=== PATIENT | male | born 1945 ===

== ENCOUNTER 2016-08-26 08:29 | Inpatient (IN) | payer MEDICARE, OTHER ==
[2016-08-26 08:29] VITALS: BMI 21.1
[2016-08-26 09:45] LABS: RBC URINE 75 /hpf (0-3); URINE BACTERIA FEW (<OCC); URINE BILIRUBIN NEGATIVE (NEGATIVE); URINE BLOOD 1+ (NEGATIVE); URINE COLOR Yellow (YELLOW); URINE GLUCOSE (UA) NORMAL (Normal); URINE KETONE NEGATIVE (NEGATIVE); URINE LEUKOCYTE ESTERASE 3+ Leu/uL (Negative); URINE PROTEIN 2+ mg/dL (NEGATIVE); URINE UROBILINOGEN NORMAL mg/dL (0.2-1.0); WBC CLUMPS RARE /hpf; WBC URINE 1280 /hpf (0-5)
--- NOTE | 2016-08-26 09:57 | C.PDOC ---
History Of Present Illness 71 y/o male presents to the ED with complains of difficulty urinating, onset 3 days ago. Pt reports he initially was putting our small amounts of urine. Yesterday afternoon, patient became unable to to urinate and has had worsening suprapubic pain since then. He denies fever, nausea, vomiting, diarrhea. PMHx of "prostate problems" as per patient, currently on Flomax given by PMD. He denies having urologist. Time Seen by Provider: 08/26/16 09:19 Chief Complaint (Nursing): Male Genitourinary History Per: Patient History/Exam Limitations: no limitations Onset/Duration Of Symptoms: Days Current Symptoms Are (Timing): Worse Severity: Moderate Quality Of Discomfort: "Pain" Associated Symptoms: denies: Fever, Nausea, Vomiting, Diarrhea Alleviating Factors: None Past Medical History Reviewed: Historical Data, Nursing Documentation, Vital Signs Vital Signs: Last Vital Signs Temp 97.9 F 08/28/16 08:52 Pulse 102 H 08/28/16 08:52 Resp 20 08/28/16 08:52 BP 122/70 08/28/16 08:52 Pulse Ox 97 08/28/16 08:52 - Medical History PMH: Rheumatoid Arthritis Family History: States: No Known Family Hx - Social History Hx Alcohol Use: No Hx Substance Use: No - Immunization History Hx Tetanus Toxoid Vaccination: No Hx Influenza Vaccination: Yes Hx Pneumococcal Vaccination: No Review Of Systems Except As Marked, All Systems Reviewed And Found Negative. Constitutional: Negative for: Fever, Chills Respiratory: Negative for: Cough, Shortness of Breath Gastrointestinal: Positive for: Abdominal Pain (suprapubic). Negative for: Nausea, Vomiting, Diarrhea Genitourinary: Positive for: Other (difficulty urinating) Physical Exam - Physical Exam Appears: Well, Non-toxic, In Acute Distress (uncomfortable) Skin: Warm, Dry, No Rash Head: Normacephalic Oral Mucosa: Moist Cardiovascular: Rhythm Regular Respiratory: Normal Breath Sounds, No Rales, No Rhonchi, No Wheezing Gastrointestinal/Abdominal: Bowel Sounds, Soft, Tenderness (suprapubic TTP), No Distention, No Guarding, No Rebound Extremity: Bilateral: Atraumatic Neurological/Psych: Oriented x3 ED Course And Treatment - Laboratory Results Result Diagrams: 08/28/16 05:54 08/28/16 05:54 O2 Sat by Pulse Oximetry: 98 (on room air) Pulse Ox Interpretation: Normal Progress Note: Plan: UA ordered and reviewed. Patient developed hematuria after shields insertion, three way shields inserted by nurse and CBI started. Blood work and CT scan of pelvis ordered. 16:30- Spoke with Dr. Olivas, he agrees with admission for persisent hematuria, irregular & thickened bladder with Dr. Velasco for urology. 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 Sanz, he recommends continued irrigation, IV rocephin. If no clearing of hematuria, then he will see patient on consult. Disposition Counseled Patient/Family Regarding: Studies Performed, Diagnosis, Need For Followup, Rx Given - Disposition Disposition: HOSPITALIZED Disposition Time: 16:35 Condition: STABLE - POA Present On Arrival: None - Clinical Impression Clinical Impression: UTI (urinary tract infection), Acute retention of urine - Scribe Statement The provider has reviewed the documentation as recorded by the Patty Montes Provider Attestation: All medical record entries made by the Patty were at my direction and personally dictated by me. I have reviewed the chart and agree that the record accurately reflects my personal performance of the history, physical exam, medical decision making, and the department course for this patient. I have also personally directed, reviewed, and agree with the discharge instructions and disposition. Decision To Admit - Pt Status Changed To: Hospital Disposition Of: Inpatient - Admit Certification Admit to Inpatient:: After my assessment, the patient will require hospitalization for at least two midnights. This is because of the severity of symptoms shown, intensity of services needed, and/or the medical risk in this patient being treated as an outpatient. - InPatient: Physician Admission Certification: I certify that this patient requires 2 or more midnights of care for the following reason:: see notes - . Bed Request Type: Regular Admitting Physician: Yasmeen Olivas Patient Diagnosis: UTI (urinary tract infection), Acute retention of urine
[2016-08-26 11:12] LABS: BASO # 0.1 K/uL (0.0-0.2); BASO % 0.5 % (0.0-2.0); EOS # 0.1 K/uL (0.0-0.7); EOS % 1.2 % (0.0-4.0); HEMATOCRIT 37.4 % (35.0-51.0); LYMPH # 1.9 K/uL (1.0-4.3); LYMPH % 19.2 % (20.0-40.0); MEAN CELL VOLUME 79.9 fL (80.0-94.0); MEAN CORPUSCULAR HEMOGLOBIN 25.4 pg (27.0-31.0); MEAN CORPUSCULAR HGB CONC 31.8 g/dL (33.0-37.0); MEAN PLATELET VOLUME 8.2 fL (7.2-11.7); MONO # 1.1 K/uL (0.0-0.8); MONO % 10.9 % (0.0-10.0); NRBC % 0.1 % (0.0-2.0); RED CELL DISTRIBUTION WIDTH 16.2 % (11.5-14.5); WHITE BLOOD COUNT 10.1 K/uL (4.8-10.8)
[2016-08-26 11:18] LABS: INR 1.1
[2016-08-26 11:25] LABS: CHLORIDE 88 mmol/L (98-107)
[2016-08-26 11:26] LABS: POTASSIUM 4.1 mmol/L (3.6-5.2); SODIUM 128 mmol/L (132-148)
[2016-08-26 11:28] LABS: ALB/GLOB RATIO 1.4 (1.0-2.1); ALKALINE PHOSPHATASE 45 U/L (38-126); ALT/SGPT 21 U/L (21-72); AST/SGOT 26 U/L (17-59); BILIRUBIN,TOTAL 0.7 mg/dL (0.2-1.3); BLOOD UREA NITROGEN 11 mg/dL (9-20); CARBON DIOXIDE 28 mmol/L (22-30); GFR AFRICAN-AMERICAN > 60; TOTAL PROTEIN 7.1 g/dL (6.3-8.3)
[2016-08-26 11:29] LABS: CALCIUM 9.1 mg/dl (8.6-10.4); GLUCOSE,RANDOM 133 mg/dL (75-110)
[2016-08-26] MEDS ORDERED: Iodixanol 320 MG/ML 100 ML BOTTLE IV ONE (15:08)
--- NOTE | 2016-08-26 15:32 | CT ---
PROCEDURE: CT Abdomen and Pelvis with and without intravenous contrast HISTORY: SUPRAPUBIC PAIN, HEMATURIA, R/O MASS COMPARISON: None available. TECHNIQUE: Axial images of the abdomen were obtained in the pre contrast, portal venous and delayed phases of enhancement. Coronal and sagittal reformats were generated and reviewed. Contrast dose: 100 mL Visipaque Radiation dose: Total exam DLP = 1167.51 mGy-cm. This CT exam was performed using one or more of the following dose reduction techniques: Automated exposure control, adjustment of the mA and/or kV according to patient size, and/or use of iterative reconstruction technique. FINDINGS: LOWER THORAX: Subtle bibasilar atelectasis. 3 mm right lower lobe pulmonary nodule (series 2, image 7). No visible pleural effusion or pneumothorax. Small hiatal hernia. LIVER: Unremarkable. GALLBLADDER AND BILE DUCTS: Unremarkable. PANCREAS: Unremarkable. SPLEEN: 8 mm probable splenule. Otherwise unremarkable. ADRENALS: Unremarkable. KIDNEYS AND URETERS: The kidneys enhance symmetrically. No obstructing calculus or hydronephrosis. 1.8 cm exophytic hyperdense right lateral mid pole lesion, indeterminate. Multiple additional bilateral low-density lesions appear compatible with cysts. Largest noted within the left upper pole exophytic lesion measuring approximately 4.6 cm. VASCULATURE: Atherosclerotic calcifications. No aortic aneurysm. BOWEL: Lack of oral contrast limits evaluation for bowel pathology. Bowel loops appear within normal limits of caliber without evidence of obstruction. Mild constipation. APPENDIX: The appendix is not identified. No secondary signs of acute appendicitis. PERITONEUM: No significant free fluid. No definite free air. LYMPH NODES: No bulky adenopathy evident. BLADDER: Garrett catheter is within a decompressed urinary bladder which contains air. Markedly thick-walled irregular urinary bladder wall. REPRODUCTIVE: The prostate gland measures approximately 3.5 x 5.7 cm. BONES: 7 mm L3 and 8 mm L5 sclerotic foci, possibly bone islands. Mild degenerative changes. OTHER FINDINGS: None. IMPRESSION: 1.8 cm exophytic hyperdense right lateral mid pole lesion, indeterminate etiology ; while hemorrhagic cyst is a consideration, neoplasm cannot be excluded. Multiple additional bilateral low-density lesions appear compatible with cysts. Largest noted within the left upper pole exophytic lesion measuring approximately 4.6 cm. Recommend further characterization with renal ultrasound. Garrett catheter is within a decompressed urinary bladder which contains air. Markedly thick-walled irregular urinary bladder wall. Recommend correlation with urinalysis. Further evaluation with cystoscopy and/or ureteroscopy suggested if indicated. 3 mm right lower lobe pulmonary nodule. In the absence of risk factors for lung cancer, no specific imaging follow-up is required. If the patient is a smoker or has other risk factors, follow-up CT at 12 months is recommended to document stability. Additional findings as above.
[2016-08-26] MEDS ORDERED: cefTRIAXone IV 1 gm in Dextros 50 ML IV ONE (16:39)
[2016-08-26] MEDS ORDERED: cefTRIAXone IV 1 gm in Dextros 50 ML IVPB ONE (16:42)
[2016-08-26] MEDS ORDERED: Morphine 4 MG/ML VIAL ONE (17:05)
--- NOTE | 2016-08-26 19:47 | CP.PCM.CON ---
History of Present Illness - History of Present Illness History of Present Illness: INFECTIOUS DISEASE CONSULT: HPI; 71-year-old male with history of rheumatoid arthritis, diabetes mellitus and prostate problems, currently on Flomax which was prescribed by his private [facility] who comes into the ER complaining of hesitancy and difficulty urinating for the past 3 days. Patient initially had small amounts of urine but late yesterday afternoon he became unable to urinate at all with suprapubic pain. Patient denies any fever nausea or vomiting or diarrhea. Patient does complain of blood-tinged urine consistent with hematuria. Patient was prescribed Cipro 500 twice a day by private [facility] In the ER patient was given a dose of ceftriaxone 1 g and by mouth Cipro 500 as noted after appropriate cultures were obtained. A CT scan of the abdomen and pelvis with and without contrast was also obtained which showed multiple bilateral low-density lesions compatible with cysts the largest being on the left upper pole with an exophytic lesion about 4.6 cm. There was also an exophytic hypodense lesion 1.8 cm on the right lateral mid pole kidney. Etiology not clear but hemorrhagic cyst/versus neoplasm is in consideration. Patient also had a three-day Brenner catheter placed in the ER as directed by and presently undergoing continuous bladder irrigations with sterile normal saline. Infectious disease consultation requested by PMD for HEMORRHAGIC CYSTITIS VERSUS INFECTED CYSTS/OR NEOPLASM PAST SURGICAL HISTORY; APPENDICECTOMY PMH: Rheumatoid Arthritis,DIABETES MELLITUS, PROSTATE PROBLEMS. Family History: States: Unknown Family Hx - Social History Hx Alcohol Use: No Hx Substance Use: No - Immunization History Hx Tetanus Toxoid Vaccination: No Hx Influenza Vaccination: Yes Hx Pneumococcal Vaccination: No Review of Systems - Constitutional Constitutional: absent: Chills, Fever - EENT Eyes: absent: Floaters Nose/Mouth/Throat: absent: Sore Throat - Cardiovascular Cardiovascular: absent: Chest Pain, Dyspnea, Dyspnea on Exertion, Pedal Edema - Respiratory Respiratory: absent: Cough - Gastrointestinal Gastrointestinal: Abdominal Pain (SUPRAPUBIC.). absent: Diarrhea, Nausea, Vomiting - Genitourinary Genitourinary: Difficulty Urinating, Hematuria, Urinary Hesitance, Voiding Freq/ Small Amts, Other (HISTORY OF PROSTATE PROBLEMS ON fLOMAX.) - Reproductive: Male Reproductive:Male: Pelvic Pain - Musculoskeletal Musculoskeletal: As Per HPI (HISTORY OF RHEUMATOID ARTHRITIS.) - Integumentary Integumentary: absent: Unusual Bruising - Neurological Neurological: absent: Headaches, Other Visual Disturbances - Hematologic/Lymphatic Hematologic: As Per HPI. absent: Lymphadenopathy Past Patient History - Past Social History Smoking Status: Never Smoked - ENDOCRINE/METABOLIC Hx Diabetes Mellitus Type 2: Yes - MUSCULOSKELETAL/RHEUMATOLOGICAL Hx Rheumatoid Arthritis: Yes - PSYCHIATRIC Hx Substance Use: No - SURGICAL HISTORY Hx Surgeries: No - ANESTHESIA Hx Anesthesia: No Meds Home Medications: Home Medication List Medication Instructions Recorded Confirmed Type Ciprofloxacin [Cipro] 1 tab PO BID #14 tab 08/26/16 Rx Tamsulosin [Flomax] 0.4 mg PO DAILY #7 cap 08/26/16 Rx Allergies/Adverse Reactions: Allergies Allergy/AdvReac Type Severity Reaction Status Date / Time No Known Allergies Allergy Verified 08/26/16 08:46 - Medications Medications: Current Medications Glipizide (Glucotrol Xl) 10 mg PO DAILY [facility] Home Med (Tofacitinib Citrate [Xeljanz Xr]) 11 mg PO DAILY [facility] Insulin Human Regular (Novolin R) 0 unit SC ACHS [facility] PRN Reason: Protocol Metformin HCl (Glucophage Xr) 1,000 mg PO BID [facility] Methylprednisolone (Medrol) 4 mg PO DAILY [facility] Rosuvastatin Calcium (Crestor) 5 mg PO HS [facility] Tamsulosin HCl (Flomax) 0.4 mg PO DAILY [facility] Physical Exam - Constitutional Appears: No Acute Distress - Head Exam Head Exam: NORMAL INSPECTION - Eye Exam Eye Exam: EOMI, PERRL - ENT Exam ENT Exam: Mucous Membranes Moist - Neck Exam Neck exam: Positive for: Normal Inspection - Respiratory Exam Respiratory Exam: Clear to Auscultation Bilateral, NORMAL BREATHING PATTERN - Cardiovascular Exam Cardiovascular Exam: REGULAR RHYTHM, +S1, +S2 - GI/Abdominal Exam GI & Abdominal Exam: Hypoactive Bowel Sounds, Soft, Tenderness (SUPRAPUBIC TENDERNESS.). absent: Guarding, Rebound - Extremities Exam Extremities exam: Negative for: calf tenderness, pedal edema - Neurological Exam Neurological exam: Alert, CN II-XII Intact, Oriented x3, Reflexes Normal - Skin Skin Exam: Normal Color, Warm Results - Vital Signs Recent Vital Signs: Last Vital Signs Temp 98.4 F 08/26/16 15:18 Pulse 90 08/26/16 17:02 Resp 18 08/26/16 17:02 BP 125/74 08/26/16 17:02 Pulse Ox 98 08/26/16 17:02 - Labs Result Diagrams: 08/26/16 11:06 08/26/16 11:06 - Imaging and Cardiology CT scan - abdomenand pelvis with and without contrast. Status: Report reviewed by me Assessment & Plan (1) Acute retention of urine Status: Acute (2) UTI (urinary tract infection) Status: Acute (3) Rheumatoid arthritis Status: Acute (4) Diabetes mellitus Status: Acute - Assessment and Plan (Free Text) Assessment: IMPRESSION; -HEMATURIA. -ACUTE URINARY RETENTION. - MULTIPLE B/L CYST KIDNEYS ? HGIC VS NEOPLASM. - UTI -BPH.. -RHEUMATOID ARTHRITIS. -DIABETES MELLITUS. PLAN; PANCULTURES. PSA. START iv ZOSYN 3.375 EVERY 8 HOURLY 08/26/16. PATIENT PRESENTLY ON THREE-WAY Brenner CATHETER CONTINUOUS INFUSIONS. ON BOARD. WILL FOLLOW CULTURES AND ADJUST ANTIBIOTICS NECESSARY. THANK YOU.
--- NOTE | 2016-08-26 20:33 | CP.PCM.HP ---
History of Present Illness - History of Present Illness History of Present Illness: COMPREHENSIVE HISTORY & PHYSICAL EXAM HPI FOR 3 DAYS PT HAS BEEN HAVING URINARY HESITANCY AND DECREASE URINE FLOW. GRADUALLY GOT WORSE AND HAD ACUTE URINARY RETENTION PT HAD COPELAND'S CATHER IN ER AND SUBSEQUENTLY HAD BLOOD CLOTS VIA CATHER . IT DID NOT RESPOND TO BLADDER IRRIGATION AND PT WAS ADMITTED PER URLOLOGY RECOMMENDATIONS PAST HIST. HTN ,PROATATE DISORDER PERSONAL HIST: Smoking. N Alcohol. N Allergy N Travel_- . FAMILY HIST : ROS : Constitutional: Negative for weight change, chills, night sweats, fatigue and usage of assist device. Eyes: Negative for redness, swelling, itching, discharge, vision changes, blurry vision, double vision, glaucoma, cataracts, Ears: Negative for hearing loss, ringing, , tinnitus, vertigo Nose: Negative for rhinorrhea, stuffiness, sniffing, itching, postnasal drip, discoloration, nasal congestion and epistaxis. Throat: Negative for throat clearing, sore throat, hoarseness, difficulty swallowing and difficulty speaking. Respiratory: Negative for cough, chest tightness, sputum or phlegm, chronic cough, hemoptysis, wheezing, snoring at night, pleuritic chest pain and daytime somnolence. Cardiovascular: Negative for chest pain, palpitations, orthopnea, PND, Edema of legs, leg cramps, angina, claudication, , irregular heartbeat, Neurology: Negative for irritability, muscle weakness, numbness and tingling, seizures, tremors, migraines, slurred speech, syncope, memory loss, mood changes , recurrent headaches Gastrointestinal: Negative for difficulty swallowing, diarrhea, constipation, black stools, rectal bleeding, nausea, flatulence, reflux, poor appetite, changes in bowel habits, abdominal pain Genitourinary: URINARY RETENTION Musculoskeletal: Negative for swollen joints, back pain, , neck pain, morning stiffness of joints, . Skin: Negative for rash, ulcers, itching, dry skin and pigmented lesions. P/E: Constitutional: Appears stated age and in no apparent distress. Head: Normocephalic. Ears: External ear canals patent without inflammation. Tympanic membranes intact with normal light reflex and landmark. Eyes: Pupils are central, bilaterally equal, symmetrical and reacts to light with normal movements and no icterus or pallor. Nose: External nares are patent. Mucosa is pink Mouth-Throat: Good general appearance and condition. No post-pharyngeal/oropharyngeal erythema and tonsillar hypertrophy. Good dental hygiene. Neck-Lymphatic: Neck is supple with normal ROM, no thyromegaly, lymph nodes or masses. JVD is normal with no carotid bruit. Lungs: Clear to percussion and auscultation with bilateral normal air entry. Cardiovascular: S1 and S2 are normal with no murmurs, gallops and rub. GI Exam: No hepatomegaly. Abdomen is soft and non-tender. No Organomegaly , masses or hernias are evident and bowel sounds are normal and active. Neurology: Higher function and all cranial nerves intact, with no gross motor or sensory deficit. Superficial and deep reflexes are normal with downwards planters. No cerebellar deficit with normal gait. Musculoskeletal: No tender spots with normal curvature of the spine with no swelling or restricted ROM of the small and large joints. Extremities: Homans sign absent. Intact pulses with no pitting edema, calf tenderness or skin color changes. Skin: No rash, eruptions or abnormal skin pigmentation LAB/RADIOLOGY: ASSESMENT : ACUTE URINARY RETENTION WITH HEMATURIA BPH PLAN: 3 WAY BLADDER WASH IV AB Present on Admission - Present on Admission Any Indicators Present on Admission: No Past Patient History - Past Social History Smoking Status: Never Smoked - ENDOCRINE/METABOLIC Hx Diabetes Mellitus Type 2: Yes - MUSCULOSKELETAL/RHEUMATOLOGICAL Hx Rheumatoid Arthritis: Yes - PSYCHIATRIC Hx Substance Use: No - SURGICAL HISTORY Hx Surgeries: No - ANESTHESIA Hx Anesthesia: No Meds Home Medications: Home Medication List Medication Instructions Recorded Confirmed Type Ciprofloxacin [Cipro] 1 tab PO BID #14 tab 08/26/16 Rx Tamsulosin [Flomax] 0.4 mg PO DAILY #7 cap 08/26/16 Rx Allergies/Adverse Reactions: Allergies Allergy/AdvReac Type Severity Reaction Status Date / Time No Known Allergies Allergy Verified 08/26/16 08:46 Results - Vital Signs Recent Vital Signs: Last Vital Signs Temp 98.4 F 08/26/16 15:18 Pulse 90 08/26/16 17:02 Resp 18 08/26/16 17:02 BP 125/74 08/26/16 17:02 Pulse Ox 98 08/26/16 17:02 - Labs Result Diagrams: 08/27/16 08:18 08/27/16 08:18
[2016-08-26] MEDS: Piperacill/Tazo 3.375gm in Dex 50 ML IVPB SCH (21:32)
[2016-08-26] MEDS: (Novolin R) Insulin Human Regular 100 units/ml vial SC SCH (21:33)
[2016-08-27 00:45] VITALS: RESP 20
[2016-08-27] MEDS: Piperacill/Tazo 3.375gm in Dex 50 ML IVPB SCH ×3 (04:19→19:34)
[2016-08-27 08:25] LABS: BASO % 0.4 % (0.0-2.0); EOS # 0.1 K/uL (0.0-0.7); HEMATOCRIT 37.9 % (35.0-51.0); LYMPH # 0.9 K/uL (1.0-4.3); LYMPH % 8.5 % (20.0-40.0); MEAN CELL VOLUME 78.7 fL (80.0-94.0); MEAN CORPUSCULAR HEMOGLOBIN 25.6 pg (27.0-31.0); MEAN CORPUSCULAR HGB CONC 32.5 g/dL (33.0-37.0); MEAN PLATELET VOLUME 8.7 fL (7.2-11.7); MONO # 1.1 K/uL (0.0-0.8); MONO % 9.9 % (0.0-10.0); PLATELET COUNT 220 K/uL (130-400); RED CELL DISTRIBUTION WIDTH 16.3 % (11.5-14.5); WHITE BLOOD COUNT 11.1 K/uL (4.8-10.8)
[2016-08-27 08:40] LABS: CHLORIDE 88 mmol/L (98-107)
[2016-08-27 08:41] LABS: SODIUM 125 mmol/L (132-148)
[2016-08-27 08:43] LABS: ALB/GLOB RATIO 1.3 (1.0-2.1); AST/SGOT 28 U/L (17-59); BILIRUBIN,TOTAL 0.8 mg/dL (0.2-1.3); BLOOD UREA NITROGEN 8 mg/dL (9-20); CARBON DIOXIDE 26 mmol/L (22-30); GFR AFRICAN-AMERICAN > 60; TOTAL PROTEIN 6.6 g/dL (6.3-8.3)
[2016-08-27 08:44] LABS: ALKALINE PHOSPHATASE 52 U/L (38-126); ALT/SGPT 22 U/L (21-72); CALCIUM 8.9 mg/dl (8.6-10.4); GLUCOSE,RANDOM 182 mg/dL (75-110)
[2016-08-27] MEDS: (Novolin R) Insulin Human Regular 100 units/ml vial SC SCH ×4 (09:12→21:34)
[2016-08-27] MEDS: GlipiZIDE 10 mg SR Tab PO SCH (09:26)
[2016-08-27 09:32] LABS: EOSINOPHIL 1 % (0-4); NEUTROPHIL 80 % (50-75); TOTAL CELLS COUNTED 100
[2016-08-27] MEDS ORDERED: TOFACITINIB CITRATE 11 MG PO SCH (10:00)
--- NOTE | 2016-08-27 13:23 | CP.PCM.PN ---
Subjective - Date & Time of Evaluation Date of Evaluation: 08/27/16 Time of Evaluation: 13:22 - Subjective Subjective: CHIEF COMPLAINTS TODAY : MILD HEMATURIA ROS. HEENT : N. Resp : No cough, wheezing ,pleuritic CP ,or hemoptysis Cardio : No anginal CP, PND, orthopnea, palpitation GI : No abd.pain, n/v ,diarrhea or GI bleeding . [employer]ER : No headache, vertigo, focal deficit. Musculoskel : No joint swelling , Derm : No rash Psych : Normal affect. Ext : No swelling ,calf pain PE. Pt. is alert awake in no distress. V.S As noted in the chart Head ,ear nose,throat and eyes : Normal. Neck : Supple with normal carotids. Lungs: Clear air entry. Heart : S1 & S2 normal with S4. No murmur. Abd : Soft non tender with normal bowel sounds. Neuro : Moves all ext. with no localized deficit. Ext : No edema with intact pulses.Non tender calves Derm : No rashes or decubitus ulcer. LABS/RADIOLOGY: ASSESSMENT/PLAN : IV AB AWAITING UROLOGY ID ; IV AB Objective - Vital Signs/Intake and Output Vital Signs (last 24 hours): Temp Pulse Resp BP Pulse Ox 98.1 F 91 H 20 148/75 97 08/27/16 08:00 08/27/16 08:00 08/27/16 08:00 08/27/16 08:00 08/27/16 08:00 Intake and Output: 08/27/16 08/27/16 11:59 23:59 Intake Total 50 Output Total 700 Balance -650 - Medications Medications: Current Medications Glipizide (Glucotrol Xl) 10 mg PO DAILY [facility] Last Admin: 08/27/16 09:26 Dose: 10 mg Home Med (Tofacitinib Citrate [Xeljanz Xr]) 11 mg PO DAILY [facility] Piperacillin Sod/Tazobactam Sod (Zosyn 3.375 Gm Iv Premix) 50 mls @ 100 mls/hr IVPB Q8H [facility] Last Admin: 08/27/16 11:59 Dose: 100 mls/hr Insulin Human Regular (Novolin R) 0 unit SC ACHS [facility] PRN Reason: Protocol Last Admin: 08/27/16 12:23 Dose: 2 unit Metformin HCl (Glucophage Xr) 1,000 mg PO BID [facility] Methylprednisolone (Medrol) 4 mg PO DAILY [facility] Last Admin: 08/27/16 09:26 Dose: 4 mg Rosuvastatin Calcium (Crestor) 5 mg PO HS [facility] Last Admin: 08/26/16 21:32 Dose: 5 mg Tamsulosin HCl (Flomax) 0.4 mg PO DAILY [facility] Last Admin: 08/27/16 09:26 Dose: 0.4 mg - Labs Labs: 08/27/16 08:18 08/27/16 08:18 PT 12.9 SECONDS (9.7-12.2) H 08/26/16 11:06 INR 1.1 08/26/16 11:06 APTT 24 SECONDS (21-34) 08/26/16 11:06
--- NOTE | 2016-08-27 20:36 | CON ---
DATE: 08/27/2016 REASON FOR CONSULTATION: Gross hematuria, acute urinary retention and BPH. BRIEF HISTORY: The patient is a 71-year-old male from [facility] with a 6-month history of BPH, previous ly on Flomax with a good response who presents to [facility] Emergency Room with acute urinary r etention requiring Garrett catheterization. After the catheter was in, the patient developed acute ons et of gross hematuria, which required change of the Garrett catheter in the Emergency Room to a 3-way F oley catheter with continuous bladder irrigation. This gross hematuria may have been due to sudden d ecompression of the bladder of 400 mL of ursula urine originally. The patient was admitted for observ ation and continuous bladder irrigation with CBI. The patient denies any prior urologic surgical his tory. PAST SURGICAL HISTORY: His only prior surgical history was an appendectomy 30 years ago. PAST MEDICAL HISTORY: He does have a history of diabetes mellitus and asthma. Tonight he is currently very comfortable and the 3-way Garrett catheter is now draining completely dalia r fluid on slow CBI. SOCIAL HISTORY: He is a nonsmoker and no history of any alcohol use. ALLERGIES: He has no known allergies to any medication. PHYSICAL EXAMINATION: GENERAL: Tonight, the patient is a well-developed, well-nourished male. He is alert. He is oriente d. HEENT: Grossly within normal limits. NECK: Supple. Thyroid not palpable. ABDOMEN: Soft, not distended or tender. No CVA tenderness. No suprapubic tenderness. GENITALIA: He is noncircumcised with normal glans and meatus without any rashes or lesions visualize d. Testes are down bilaterally, nontender, without any masses. RECTAL: Normal rectal tone without fluctuance or masses. Prostate is wide, flat, smooth, symmetrica l, nontender without nodules or indurations with a palpable median sulcus. LABORATORY EVALUATION: Today 08/27/2016, CBC shows a WBC count of 11.1, hemoglobin of 12.3, and hemato crit of 37.9. Platelet count is 220,000. His chem profile shows a sodium of 125, potassium of 4.0, chloride 88, CO2 26, BUN and creatinine 8 and 0.7 respectively with a GFR of greater than 60. His gl ucose was 183. His calcium is 8.9, total bilirubin was 0.8, AST was 28, ALT 22. His urinalysis from the ER on admission showed the color was yellow, clarity was turbid, pH was 8.0, specific gravity 1. 006, protein was 2+, glucose was normal, ketones were negative, blood was 1+. This is after initial Garrett catheterization. Nitrate was negative, bilirubin was negative, urobilinogen was normal, leukoc yte esterase was 3+. There were 1200 WBCs and 75 RBCs per high power field with rare clumps of WBCs in the urine and few bacteria. The patient was started on Zosyn IV antibiotic during this hospitaliz ation. DIAGNOSTIC IMPRESSION: 1. Urinary retention. 2. Benign prostatic hypertrophy. 3. Urinary tract infection and gross hematuria, probably from rapid decompression of the bladder dur ing Garrett catheterization. PLAN: For this patient will be to stop the CBI tonight and if he continues to drain clear ursula urin e, the patient can be discharged home on Flomax 0.4 mg daily, will add finasteride 5 mg daily, both f or treatment of BPH and an oral antibiotic which could include Augmentin, pending the urine culture r eport. The patient also had an abdominal pelvic CT done from the ER with and without IV contrast, wh ich showed no stones and no hydronephrosis and a 1.8 cm nonspecific exophytic lesion in the right lat eral mid pole and some additional cysts. This lesion will have to be followed as an outpatient with serial ultrasounds and possibly CTs. The urine culture during this admission showed gram-positive co cci. The patient is currently on Zosyn. The patient can probably be discharged home on Augmentin 87 5/125 mg p.o. b.i.d. for 10 days. The patient can be seen in office followup in 10 days. Hubert Sanz MD cc: [id number] TT: 08/27/2016 20:36:31 Confirmation # [id number] Dictation # [id number] cecelia
--- NOTE | 2016-08-27 23:10 | CP.PCM.PN ---
Subjective - Date & Time of Evaluation Date of Evaluation: 08/27/16 Time of Evaluation: 23:10 - Subjective Subjective: CHIEF COMPLAINTS TODAY : AFEBRILE C/O SUPRAPUBIC PAIN/AND PAIN AT SITE OF Brenner CATHETER INSERTION MILD HEMATURIA ON THREE-WAY BLADDER IRRIGATIONS. ROS. HEENT : N. Resp : No cough, wheezing ,pleuritic CP ,or hemoptysis Cardio : No anginal CP, PND, orthopnea, palpitation GI : +VE SUPRAPUBIC PAIN, NO n/v ,diarrhea or GI bleeding . 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 Musculoskel : No joint swelling , Derm : No rash Psych : Normal affect. Ext : No swelling ,calf pain PE. Pt. is alert awake in no distress. V.S As noted in the chart Head ,ear nose,throat and eyes : Normal. Neck : Supple with normal carotids. Lungs: Clear air entry. Heart : S1 & S2 normal with S4. No murmur. Abd : Soft MILD TENDERNESS SUPRAPUBIC with normal bowel sounds. Neuro : Moves all ext. with no localized deficit. Ext : No edema with intact pulses.Non tender calves Derm : No rashes or decubitus ulcer. LABS/RADIOLOGY: URINE CULTURE- GRAM-POSITIVE COCCI ASSESSMENT/PLAN : IV AB PER UROLOGY CONTINUE IV AB . Objective - Vital Signs/Intake and Output Vital Signs (last 24 hours): Temp Pulse Resp BP Pulse Ox 98.4 F 88 20 132/79 96 08/27/16 17:38 08/27/16 17:38 08/27/16 17:38 08/27/16 17:38 08/27/16 17:38 Intake and Output: 08/27/16 08/28/16 18:59 06:59 Intake Total 580 150 Output Total 1400 1450 Balance -820 -1300 - Medications Medications: Current Medications Glipizide (Glucotrol Xl) 10 mg PO DAILY [facility] Last Admin: 08/27/16 09:26 Dose: 10 mg Home Med (Tofacitinib Citrate [Xeljanz Xr]) 11 mg PO DAILY [facility] Piperacillin Sod/Tazobactam Sod (Zosyn 3.375 Gm Iv Premix) 50 mls @ 100 mls/hr IVPB Q8H [facility] Last Admin: 08/27/16 19:34 Dose: 100 mls/hr Vancomycin HCl 1 gm/ Sodium (Chloride) 250 mls @ 166.7 mls/hr IVPB Q24H [facility] Insulin Human Regular (Novolin R) 0 unit SC ACHS [facility] PRN Reason: Protocol Last Admin: 08/27/16 21:34 Dose: Not Given Metformin HCl (Glucophage Xr) 1,000 mg PO BID [facility] Methylprednisolone (Medrol) 4 mg PO DAILY [facility] Last Admin: 08/27/16 09:26 Dose: 4 mg Rosuvastatin Calcium (Crestor) 5 mg PO HS [facility] Last Admin: 08/27/16 21:27 Dose: 5 mg Tamsulosin HCl (Flomax) 0.4 mg PO DAILY [facility] Last Admin: 08/27/16 09:26 Dose: 0.4 mg - Labs Labs: 08/27/16 08:18 08/27/16 08:18 PT 12.9 SECONDS (9.7-12.2) H 08/26/16 11:06 INR 1.1 08/26/16 11:06 APTT 24 SECONDS (21-34) 08/26/16 11:06 Assessment and Plan (1) Acute retention of urine Status: Acute (2) UTI (urinary tract infection) Status: Acute (3) Rheumatoid arthritis Status: Acute (4) Diabetes mellitus Status: Acute
[2016-08-28] MEDS: Piperacill/Tazo 3.375gm in Dex 50 ML IVPB SCH ×2 (04:02→12:39)
[2016-08-28 05:59] LABS: BASO % 0.4 % (0.0-2.0); EOS # 0.2 K/uL (0.0-0.7); EOS % 1.5 % (0.0-4.0); HEMATOCRIT 38.9 % (35.0-51.0); LYMPH # 1.4 K/uL (1.0-4.3); LYMPH % 11.8 % (20.0-40.0); MEAN CELL VOLUME 78.9 fL (80.0-94.0); MEAN CORPUSCULAR HEMOGLOBIN 25.5 pg (27.0-31.0); MEAN CORPUSCULAR HGB CONC 32.4 g/dL (33.0-37.0); MEAN PLATELET VOLUME 8.3 fL (7.2-11.7); MONO % 8.9 % (0.0-10.0); WHITE BLOOD COUNT 11.5 K/uL (4.8-10.8)
[2016-08-28 06:12] LABS: CHLORIDE 91 mmol/L (98-107)
[2016-08-28 06:13] LABS: POTASSIUM 3.9 mmol/L (3.6-5.2); SODIUM 134 mmol/L (132-148)
[2016-08-28 06:15] LABS: ALB/GLOB RATIO 1.2 (1.0-2.1); AST/SGOT 19 U/L (17-59); BILIRUBIN,DIRECT 0.5 mg/dL (0.0-0.4); BILIRUBIN,TOTAL 0.7 mg/dL (0.2-1.3); BLOOD UREA NITROGEN 6 mg/dL (9-20); CARBON DIOXIDE 26 mmol/L (22-30); GFR AFRICAN-AMERICAN > 60; GLUCOSE,RANDOM 140 mg/dL (75-110); TOTAL PROTEIN 6.6 g/dL (6.3-8.3)
[2016-08-28 06:16] LABS: ALKALINE PHOSPHATASE 46 U/L (38-126); ALT/SGPT 18 U/L (21-72); CALCIUM 8.2 mg/dl (8.6-10.4)
[2016-08-28] MEDS: (Novolin R) Insulin Human Regular 100 units/ml vial SC SCH ×2 (08:47→12:38)
[2016-08-28 09:30] VITALS: BP 122/70; PULSE 102; TEMP 97.9
[2016-08-28] MEDS: GlipiZIDE 10 mg SR Tab PO SCH (09:44)
--- NOTE | 2016-08-28 11:53 | CP.PCM.PN ---
Subjective - Date & Time of Evaluation Date of Evaluation: 08/28/16 Time of Evaluation: 11:52 Objective - Vital Signs/Intake and Output Vital Signs (last 24 hours): Temp Pulse Resp BP Pulse Ox 97.9 F 102 H 20 122/70 97 08/28/16 08:52 08/28/16 08:52 08/28/16 08:52 08/28/16 08:52 08/28/16 08:52 Intake and Output: 08/28/16 08/28/16 06:59 18:59 Intake Total 650 Output Total 1850 Balance -1200 - Medications Medications: Current Medications Glipizide (Glucotrol Xl) 10 mg PO DAILY [facility] Last Admin: 08/28/16 09:44 Dose: 10 mg Home Med (Tofacitinib Citrate [Xeljanz Xr]) 11 mg PO DAILY [facility] Piperacillin Sod/Tazobactam Sod (Zosyn 3.375 Gm Iv Premix) 50 mls @ 100 mls/hr IVPB Q8H [facility] Last Admin: 08/28/16 04:02 Dose: 100 mls/hr Vancomycin HCl 1 gm/ Sodium (Chloride) 250 mls @ 166.7 mls/hr IVPB Q24H [facility] Last Admin: 08/27/16 23:35 Dose: 166.7 mls/hr Insulin Human Regular (Novolin R) 0 unit SC ACHS [facility] PRN Reason: Protocol Last Admin: 08/28/16 08:47 Dose: 2 unit Metformin HCl (Glucophage Xr) 1,000 mg PO BID [facility] Methylprednisolone (Medrol) 4 mg PO DAILY [facility] Last Admin: 08/28/16 09:43 Dose: 4 mg Rosuvastatin Calcium (Crestor) 5 mg PO HS [facility] Last Admin: 08/27/16 21:27 Dose: 5 mg Tamsulosin HCl (Flomax) 0.4 mg PO DAILY [facility] Last Admin: 08/28/16 09:44 Dose: 0.4 mg - Labs Labs: 08/28/16 05:54 08/28/16 05:54 PT 12.9 SECONDS (9.7-12.2) H 08/26/16 11:06 INR 1.1 08/26/16 11:06 APTT 24 SECONDS (21-34) 08/26/16 11:06 Assessment and Plan (1) Acute retention of urine Status: Acute (2) UTI (urinary tract infection) Status: Acute (3) Rheumatoid arthritis Status: Acute (4) Diabetes mellitus Status: Acute
--- NOTE | 2016-08-28 13:00 | CP.PCM.PN ---
Subjective - Date & Time of Evaluation Date of Evaluation: 08/28/16 Time of Evaluation: 12:58 - Subjective Subjective: CHIEF COMPLAINTS TODAY : MILD HEMATURIA ROS. HEENT : N. Resp : No cough, wheezing ,pleuritic CP ,or hemoptysis Cardio : No anginal CP, PND, orthopnea, palpitation GI : No abd.pain, n/v ,diarrhea or GI bleeding . BONING ROOM WORKER : No headache, vertigo, focal deficit. Musculoskel : No joint swelling , Derm : No rash Psych : Normal affect. Ext : No swelling ,calf pain PE. Pt. is alert awake in no distress. V.S As noted in the chart Head ,ear nose,throat and eyes : Normal. Neck : Supple with normal carotids. Lungs: Clear air entry. Heart : S1 & S2 normal with S4. No murmur. Abd : Soft non tender with normal bowel sounds. Neuro : Moves all ext. with no localized deficit. Ext : No edema with intact pulses.Non tender calves Derm : No rashes or decubitus ulcer. LABS/RADIOLOGY: URINE SHOWS +VE URINE CULTURE , STREP HEMO. ASSESSMENT/PLAN : IV AB AWAITING UROLOGY ID ; IV AB Objective - Vital Signs/Intake and Output Vital Signs (last 24 hours): Temp Pulse Resp BP Pulse Ox 97.9 F 102 H 20 122/70 97 08/28/16 08:52 08/28/16 08:52 08/28/16 08:52 08/28/16 08:52 08/28/16 08:52 Intake and Output: 08/28/16 08/28/16 11:59 23:59 Intake Total 500 Output Total 400 Balance 100 - Medications Medications: Current Medications Glipizide (Glucotrol Xl) 10 mg PO DAILY [facility] Last Admin: 08/28/16 09:44 Dose: 10 mg Home Med (Tofacitinib Citrate [Xeljanz Xr]) 11 mg PO DAILY [facility] Piperacillin Sod/Tazobactam Sod (Zosyn 3.375 Gm Iv Premix) 50 mls @ 100 mls/hr IVPB Q8H [facility] Last Admin: 08/28/16 12:39 Dose: 100 mls/hr Vancomycin HCl 1 gm/ Sodium (Chloride) 250 mls @ 166.7 mls/hr IVPB Q24H [facility] Last Admin: 08/27/16 23:35 Dose: 166.7 mls/hr Insulin Human Regular (Novolin R) 0 unit SC ACHS [facility] PRN Reason: Protocol Last Admin: 08/28/16 12:38 Dose: 6 unit Metformin HCl (Glucophage Xr) 1,000 mg PO BID [facility] Methylprednisolone (Medrol) 4 mg PO DAILY [facility] Last Admin: 08/28/16 09:43 Dose: 4 mg Rosuvastatin Calcium (Crestor) 5 mg PO HS [facility] Last Admin: 08/27/16 21:27 Dose: 5 mg Tamsulosin HCl (Flomax) 0.4 mg PO DAILY [facility] Last Admin: 08/28/16 09:44 Dose: 0.4 mg - Labs Labs: 08/28/16 05:54 08/28/16 05:54 PT 12.9 SECONDS (9.7-12.2) H 08/26/16 11:06 INR 1.1 08/26/16 11:06 APTT 24 SECONDS (21-34) 08/26/16 11:06
--- NOTE | 2016-08-28 13:22 | CP.PCM.PN ---
Subjective - Date & Time of Evaluation Date of Evaluation: 08/28/16 Time of Evaluation: 13:22 - Subjective Subjective: AFEBRILE URINE CLEARING OFF THREE-WAY BLADDER IRRIGATIONS. NOW WITH Brenner ROS. HEENT : N. Resp : No cough, wheezing ,pleuritic CP ,or hemoptysis Cardio : No anginal CP, PND, orthopnea, palpitation GI : +VE SUPRAPUBIC PAIN, NO n/v ,diarrhea or GI bleeding . 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 Musculoskel : No joint swelling , Derm : No rash Psych : Normal affect. Ext : No swelling ,calf pain PE. Pt. is alert awake in no distress. V.S As noted in the chart Head ,ear nose,throat and eyes : Normal. Neck : Supple with normal carotids. Lungs: Clear air entry. Heart : S1 & S2 normal with S4. No murmur. Abd : Soft MILD TENDERNESS SUPRAPUBIC with normal bowel sounds. Neuro : Moves all ext. with no localized deficit. Ext : No edema with intact pulses.Non tender calves Derm : No rashes or decubitus ulcer. LABS/RADIOLOGY: URINE CULTURE- BETA-HEMOLYTIC STREP GROUP B S -PCN ASSESSMENT/PLAN : IV AB PER UROLOGY CONTINUE IV AB . Objective - Vital Signs/Intake and Output Vital Signs (last 24 hours): Temp Pulse Resp BP Pulse Ox 97.9 F 102 H 20 122/70 97 08/28/16 08:52 08/28/16 08:52 08/28/16 08:52 08/28/16 08:52 08/28/16 08:52 Intake and Output: 08/28/16 08/28/16 06:59 18:59 Intake Total 650 Output Total 1850 Balance -1200 - Medications Medications: Current Medications Glipizide (Glucotrol Xl) 10 mg PO DAILY [facility] Last Admin: 08/28/16 09:44 Dose: 10 mg Home Med (Tofacitinib Citrate [Xeljanz Xr]) 11 mg PO DAILY [facility] Piperacillin Sod/Tazobactam Sod (Zosyn 3.375 Gm Iv Premix) 50 mls @ 100 mls/hr IVPB Q8H [facility] Last Admin: 08/28/16 12:39 Dose: 100 mls/hr Vancomycin HCl 1 gm/ Sodium (Chloride) 250 mls @ 166.7 mls/hr IVPB Q24H [facility] Last Admin: 08/27/16 23:35 Dose: 166.7 mls/hr Insulin Human Regular (Novolin R) 0 unit SC ACHS [facility] PRN Reason: Protocol Last Admin: 08/28/16 12:38 Dose: 6 unit Metformin HCl (Glucophage Xr) 1,000 mg PO BID [facility] Methylprednisolone (Medrol) 4 mg PO DAILY [facility] Last Admin: 08/28/16 09:43 Dose: 4 mg Rosuvastatin Calcium (Crestor) 5 mg PO HS [facility] Last Admin: 08/27/16 21:27 Dose: 5 mg Tamsulosin HCl (Flomax) 0.4 mg PO DAILY [facility] Last Admin: 08/28/16 09:44 Dose: 0.4 mg - Labs Labs: 08/28/16 05:54 08/28/16 05:54 PT 12.9 SECONDS (9.7-12.2) H 08/26/16 11:06 INR 1.1 08/26/16 11:06 APTT 24 SECONDS (21-34) 08/26/16 11:06 Assessment and Plan (1) Acute retention of urine Status: Acute (2) UTI (urinary tract infection) Status: Acute (3) Rheumatoid arthritis Status: Acute (4) Diabetes mellitus Status: Acute - Assessment and Plan (Free Text) Assessment: IMPRESSION; -HEMATURIA.-IMPROVED -ACUTE URINARY RETENTION. - MULTIPLE B/L CYST KIDNEYS ? HGIC VS NEOPLASM. - UTI +VE BETA-HEMOLYTIC STREP GROUP B -BPH.. -RHEUMATOID ARTHRITIS. -DIABETES MELLITUS. PLAN; DC iv ZOSYN 3.375 EVERY 8 HOURLY 08/26/16. OKAY TO DISCHARGE ON BY MOUTH AUGMENTIN 875 TWICE A DAY X10 DAYS. fOLLOW-UP WITH /ID/PMD IN 1 WEEK PATIENT PRESENTLY WITH A Brenner CATHETER .CATHETER CARE PER CASE DISCUSSED WITH YARN MAN. MS MCLEAN.
--- NOTE | 2016-08-28 17:13 | CP.PCM.PN ---
Subjective - Date & Time of Evaluation Date of Evaluation: 08/28/16 Time of Evaluation: 11:00 - Subjective Subjective: Alert and oriented x3, no sob or chest pains, NAD. Shields draining clear urine. Objective - Vital Signs/Intake and Output Vital Signs (last 24 hours): Temp Pulse Resp BP Pulse Ox 97.9 F 102 H 20 122/70 97 08/28/16 08:52 08/28/16 08:52 08/28/16 08:52 08/28/16 08:52 08/28/16 08:52 Intake and Output: 08/28/16 08/28/16 06:59 18:59 Intake Total 650 410 Output Total 1850 1550 Balance -1200 -1140 - Medications Medications: Current Medications Glipizide (Glucotrol Xl) 10 mg PO DAILY [facility] Last Admin: 08/28/16 09:44 Dose: 10 mg Home Med (Tofacitinib Citrate [Xeljanz Xr]) 11 mg PO DAILY [facility] Piperacillin Sod/Tazobactam Sod (Zosyn 3.375 Gm Iv Premix) 50 mls @ 100 mls/hr IVPB Q8H [facility] Last Admin: 08/28/16 12:39 Dose: 100 mls/hr Vancomycin HCl 1 gm/ Sodium (Chloride) 250 mls @ 166.7 mls/hr IVPB Q24H [facility] Last Admin: 08/27/16 23:35 Dose: 166.7 mls/hr Insulin Human Regular (Novolin R) 0 unit SC ACHS [facility] PRN Reason: Protocol Last Admin: 08/28/16 12:38 Dose: 6 unit Metformin HCl (Glucophage Xr) 1,000 mg PO BID [facility] Methylprednisolone (Medrol) 4 mg PO DAILY [facility] Last Admin: 08/28/16 09:43 Dose: 4 mg Rosuvastatin Calcium (Crestor) 5 mg PO HS [facility] Last Admin: 08/27/16 21:27 Dose: 5 mg Tamsulosin HCl (Flomax) 0.4 mg PO DAILY [facility] Last Admin: 08/28/16 09:44 Dose: 0.4 mg - Labs Labs: 08/28/16 05:54 08/28/16 05:54 PT 12.9 SECONDS (9.7-12.2) H 08/26/16 11:06 INR 1.1 08/26/16 11:06 APTT 24 SECONDS (21-34) 08/26/16 11:06 Assessment and Plan - Assessment and Plan (Free Text) Assessment: Patient is seen and examined. Denies sob, abdominal pains or chest pains. S/P cystoscopy and shields placement for urinary retention. Cleared by DR Powers to discharge home with leg bag and antibiotics and follow up in his office in 10 days. D/W DR Gallardo and DR Olivas who agreed with the plan.
--- NOTE | 2016-08-29 13:47 | CP.PCM.DIS ---
Provider - Provider Date of Admission: 08/26/16 16:38 Attending physician: Yasmeen Olivas MD Time Spent in preparation of Discharge (in minutes): 30 Hospital Course - Lab Results Lab Results: Micro Results 08/26/16 20:10 Blood Blood Culture - Preliminary NO GROWTH AFTER 48 HOURS 08/26/16 20:40 Blood Blood Culture - Preliminary NO GROWTH AFTER 48 HOURS Most Recent Lab Values WBC 11.5 K/uL (4.8-10.8) H 08/28/16 05:54 RBC 4.93 Mil/uL (4.40-5.90) 08/28/16 05:54 Hgb 12.6 g/dL (12.0-18.0) 08/28/16 05:54 Hct 38.9 % (35.0-51.0) 08/28/16 05:54 MCV 78.9 fL (80.0-94.0) L 08/28/16 05:54 MCH 25.5 pg (27.0-31.0) L 08/28/16 05:54 MCHC 32.4 g/dL (33.0-37.0) L 08/28/16 05:54 RDW 16.0 % (11.5-14.5) H 08/28/16 05:54 Plt Count 219 K/uL (130-400) 08/28/16 05:54 MPV 8.3 fL (7.2-11.7) 08/28/16 05:54 Neut % (Auto) 77.4 % (50.0-75.0) H 08/28/16 05:54 Lymph % (Auto) 11.8 % (20.0-40.0) L 08/28/16 05:54 [place] % (Auto) 8.9 % (0.0-10.0) 08/28/16 05:54 Eos % (Auto) 1.5 % (0.0-4.0) 08/28/16 05:54 Baso % (Auto) 0.4 % (0.0-2.0) 08/28/16 05:54 Neut # 8.9 K/uL (1.8-7.0) H 08/28/16 05:54 Lymph # 1.4 K/uL (1.0-4.3) 08/28/16 05:54 [place] # 1.0 K/uL (0.0-0.8) H 08/28/16 05:54 Eos # 0.2 K/uL (0.0-0.7) 08/28/16 05:54 Baso # 0.0 K/uL (0.0-0.2) 08/28/16 05:54 Neutrophils % (Manual) 80 % (50-75) H 08/27/16 08:18 Band Neutrophils % 3 % (0-2) H 08/27/16 08:18 Lymphocytes % (Manual) 8 % (20-40) L 08/27/16 08:18 Monocytes % (Manual) 8 % (0-10) 08/27/16 08:18 Eosinophils % (Manual) 1 % (0-4) 08/27/16 08:18 Platelet Estimate Normal (NORMAL) 08/27/16 08:18 RBC Morphology Normal 08/27/16 08:18 PT 12.9 SECONDS (9.7-12.2) H 08/26/16 11:06 INR 1.1 08/26/16 11:06 APTT 24 SECONDS (21-34) 08/26/16 11:06 Sodium 134 mmol/L (132-148) 08/28/16 05:54 Potassium 3.9 mmol/L (3.6-5.2) 08/28/16 05:54 Chloride 91 mmol/L (98-107) L 08/28/16 05:54 Carbon Dioxide 26 mmol/L (22-30) 08/28/16 05:54 Anion Gap 21 (10-20) H 08/28/16 05:54 BUN 6 mg/dL (9-20) L 08/28/16 05:54 Creatinine 0.6 MG/DL (0.8-1.5) L 08/28/16 05:54 Est GFR ( Amer) > 60 08/28/16 05:54 Est GFR (Non-Af Amer) > 60 08/28/16 05:54 POC Glucose (mg/dL) 332 mg/dL (65-110) H 08/28/16 11:07 Random Glucose 140 mg/dL (75-110) H 08/28/16 05:54 Calcium 8.2 mg/dl (8.6-10.4) L 08/28/16 05:54 Total Bilirubin 0.7 mg/dL (0.2-1.3) 08/28/16 05:54 Direct Bilirubin 0.5 mg/dL (0.0-0.4) H 08/28/16 05:54 AST 19 U/L (17-59) 08/28/16 05:54 ALT 18 U/L (21-72) L 08/28/16 05:54 Alkaline Phosphatase 46 U/L (38-126) 08/28/16 05:54 Total Protein 6.6 g/dL (6.3-8.3) 08/28/16 05:54 Albumin 3.6 g/dL (3.5-5.0) 08/28/16 05:54 Globulin 3.1 gm/dL (2.2-3.9) 08/28/16 05:54 Albumin/Globulin Ratio 1.2 (1.0-2.1) 08/28/16 05:54 Urine Color Yellow (YELLOW) 08/26/16 09:31 Urine Clarity Turbid (Clear) 08/26/16 09:31 Urine pH 8.0 (5.0-8.0) 08/26/16 09:31 Ur Specific [place] 1.006 (1.003-1.030) 08/26/16 09:31 Urine Protein 2+ mg/dL (NEGATIVE) H 08/26/16 09:31 Urine Glucose (UA) Normal mg/dL (Normal) 08/26/16 09:31 Urine Ketones Negative mg/dL (NEGATIVE) 08/26/16 09:31 Urine Blood 1+ (NEGATIVE) H 08/26/16 09:31 Urine Nitrate Negative (NEGATIVE) 08/26/16 09:31 Urine Bilirubin Negative (NEGATIVE) 08/26/16 09:31 Urine Urobilinogen Normal mg/dL (0.2-1.0) 08/26/16 09:31 Ur Leukocyte Esterase 3+ Beck/uL (Negative) H 08/26/16 09:31 Urine WBC (Auto) 1280 /hpf (0-5) H 08/26/16 09:31 Urine RBC (Auto) 75 /hpf (0-3) H 08/26/16 09:31 Urine WBC Clumps (Auto) Rare /hpf (NONE) H 08/26/16 09:31 Urine Bacteria Few (<OCC) H 08/26/16 09:31 - Hospital Course Hospital Course: FOR 3 DAYS PT HAS BEEN HAVING URINARY HESITANCY AND DECREASE URINE FLOW. GRADUALLY GOT WORSE AND HAD ACUTE URINARY RETENTION PT HAD COPELAND'S CATHER IN ER AND SUBSEQUENTLY HAD BLOOD CLOTS VIA CATHER . IT DID NOT RESPOND TO BLADDER IRRIGATION AND PT WAS ADMITTED PER URLOLOGY RECOMMENDATIONS ID/URLOGY WAS CONSULTED PT IMPROVED ON THERAPY URINE SHOWED STREP, HEMO PT. DISCHARGE WITH FOLEYS AND PO AUGMENTIN F/U /ID Discharge Exam - Head Exam Head Exam: NORMAL INSPECTION Discharge Plan - Discharge Medications Prescriptions: Amoxicillin/Clavulanate [Augmentin 875 MG-125 MG] 1 tab PO BID #20 tab Tamsulosin [Flomax] 0.4 mg PO DAILY #7 cap - Follow Up Plan Condition: GOOD Disposition: HOME/ ROUTINE Instructions: Amoxicillin/Clavulanate Potassium (By mouth), Tamsulosin (By mouth), Urinary Retention in Men (ED), Urinary Tract Infection in Men (ED), Heart Healthy Diet (DC) Additional Instructions: FOLLOW UP WITH UROLOGY WITHIN 1 WEEK USE MEDICATIONS DIRECTED RETURN TO ER IF SYMPTOMS WORSEN Referrals: Hubert Sanz MD [Staff Provider] - Solomon Ball MD [Medical Doctor] - Lisa Ball MD [Staff Provider] -
[2016-09-06 09:28] VITALS: O2SAT 98
== END 2016-08-28 16:42 | disposition home or self-care (01) | DRG 690 ==
LOC: C.ER 08:29 → C.9E 16:38 → C.3T 17:46
PROVIDERS: ADMIT Internal Medicine Cardiovascular Disease; ATTEND Internal Medicine Cardiovascular Disease
DX: N39.0 Urinary tract infection, site not specified (principal); R31.0 Gross hematuria; E11.9 Type 2 diabetes mellitus without complications; I10 Essential (primary) hypertension; M06.9 Rheumatoid arthritis, unspecified; N40.1 Benign prostatic hyperplasia with lower urinary tract symptoms; R33.8 Other retention of urine; J45.909 Unspecified asthma, uncomplicated; Z68.22 Body mass index [BMI] 22.0-22.9, adult

== ENCOUNTER 2016-09-22 22:28 | Inpatient (IN) | payer MEDICARE, OTHER ==
[2016-09-22 22:28] VITALS: BMI 21.1
--- NOTE | 2016-09-22 23:14 | C.PDOC ---
History Of Present Illness A 71 year old male with a hx of urinary retention, presents to the ED c/o fever , decreased urine output and general malaise for a few days. Patient reports symptoms are worse today. indwelling catheter Shields placed on . Patient denies vomiting, diarrhea, flank pain, Time Seen by Provider: 09/22/16 23:14 Chief Complaint (Nursing): Flu-like Symptoms History Per: Patient History/Exam Limitations: no limitations Onset/Duration Of Symptoms: Days Current Symptoms Are (Timing): Still Present Severity: Severe Pain Scale Rating Of: 7 Reports Recently: Seen In ED, Treated By A Physician, Hospitalized Recent travel outside of the [place]: No Additional History Per: Patient Past Medical History Reviewed: Historical Data, Nursing Documentation, Vital Signs Vital Signs: Last Vital Signs Temp 101.5 F H 09/22/16 22:37 Pulse 99 H 09/23/16 00:06 Resp 24 09/23/16 00:06 BP 82/46 L 09/23/16 00:06 Pulse Ox 100 09/23/16 00:18 - Medical History PMH: Asthma, Hypercholesterolemia, Rheumatoid Arthritis Surgical History: Appendectomy Family History: States: Unknown Family Hx - Social History Hx Alcohol Use: No Hx Substance Use: No - Immunization History Hx Tetanus Toxoid Vaccination: No Hx Influenza Vaccination: Yes Hx Pneumococcal Vaccination: No Review Of Systems Except As Marked, All Systems Reviewed And Found Negative. Constitutional: Positive for: Fever, Chills, Malaise Eyes: Negative for: Redness ENT: Negative for: Throat Pain Cardiovascular: Negative for: Chest Pain, Palpitations Respiratory: Negative for: Shortness of Breath Gastrointestinal: Negative for: Vomiting, Diarrhea Genitourinary: Positive for: Frequency (Increased urine output). Negative for: Hematuria Musculoskeletal: Negative for: Back Pain Skin: Negative for: Rash, Lesions, Jaundice, Bruising Neurological: Negative for: Weakness Psych: Negative for: Anxiety Physical Exam - Physical Exam Appears: Non-toxic, In Acute Distress Skin: Warm, Diaphoretic Head: Normacephalic Eye(s): bilateral: Normal Inspection Oral Mucosa: Dry Neck: Supple Chest: Symmetrical Cardiovascular: Rhythm Regular Respiratory: No Rales, No Rhonchi, No Wheezing Gastrointestinal/Abdominal: Bowel Sounds (Normal), Soft, No Tenderness, No Distention, Other (Indwelling catheter Shields with 60 cc of clear urine in bag.) Back: Normal Inspection Male Genital: No Circumcised, Other (indwelling shields) Extremity: Normal ROM Extremity: Bilateral: Atraumatic, Normal Color And Temperature, Normal ROM Neurological/Psych: Oriented x3, Normal Speech, Normal Cognition Gait: Steady ED Course And Treatment - Laboratory Results Result Diagrams: 09/22/16 23:12 09/22/16 23:12 ECG: Interpreted By Me, Viewed By Me ECG Rhythm: Sinus Rhythm (89), Nonspecific Changes O2 Sat by Pulse Oximetry: 100 (Room air) Pulse Ox Interpretation: Normal - Radiology CXR: Interpreted by Me, Viewed By Me CXR Interpretation: No: Infiltrates, Fracture, Pnemothorax Progress Note: septic work up. flushed shields without any dificulty. spoke with dr borrero - will come and see the pt in the ed. shields removed. family aware HIPAA Compliant Critical Care Time - Critical Care Note Total Time (in mins): 40 Documented critical care: time excludes all time spent performing seperately billable procedures. Disposition Discussed With : Yasmeen Olivas Comment: accepted the pt on his service adn took over the care at 11:58 PM Doctor Will See Patient In The: Hospital Counseled Patient/Family Regarding: Studies Performed, Diagnosis - Disposition Disposition: HOSPITALIZED Disposition Time: 23:14 Condition: GUARDED - POA Present On Arrival: Cath Associated UTI - Clinical Impression Clinical Impression: UTI (urinary tract infection), Fever, Sepsis, Hyponatremia - Scribe Statement The provider has reviewed the documentation as recorded by the Scribe Nely betancourt All medical record entries made by the Katherineibe were at my direction and personally dictated by me. I have reviewed the chart and agree that the record accurately reflects my personal performance of the history, physical exam, medical decision making, and the department course for this patient. I have also personally directed, reviewed, and agree with the discharge instructions and disposition. Decision To Admit - Pt Status Changed To: Hospital Disposition Of: Inpatient - Admit Certification Admit to Inpatient:: After my assessment, the patient will require hospitalization for at least two midnights. This is because of the severity of symptoms shown, intensity of services needed, and/or the medical risk in this patient being treated as an outpatient. - InPatient: Physician Admission Certification: I certify that this patient requires 2 or more midnights of care for the following reason:: After my assessment, the patient will require hospitalization for at least two midnights. This is because of the severity of symptoms shown, intensity of services needed, and/or the medical risk in this patient being treated as an outpatient. - . Bed Request Type: ICU Admitting Physician: Yasmeen Olivas Patient Diagnosis: UTI (urinary tract infection), Fever, Sepsis, Hyponatremia
[2016-09-22] MEDS ORDERED: Sodium Chloride 0.9% 1,000 ML IV SCH ×2 (23:15→23:25)
[2016-09-22 23:16] LABS: BASO % 0.3 % (0.0-2.0); LYMPH # 1.7 K/uL (1.0-4.3)
[2016-09-22 23:21] LABS: BASO # 0.1 K/uL (0.0-0.2); HEMATOCRIT 32.5 % (35.0-51.0); LYMPH % 9.1 % (20.0-40.0); MEAN CELL VOLUME 77.5 fL (80.0-94.0); MEAN CORPUSCULAR HEMOGLOBIN 25.7 pg (27.0-31.0); MEAN CORPUSCULAR HGB CONC 33.2 g/dL (33.0-37.0); MEAN PLATELET VOLUME 8.6 fL (7.2-11.7); MONO % 5.6 % (0.0-10.0); PLATELET COUNT 148 K/uL (130-400); RED CELL DISTRIBUTION WIDTH 16.3 % (11.5-14.5); WHITE BLOOD COUNT 18.6 K/uL (4.8-10.8)
[2016-09-22 23:23] LABS: CHLORIDE 86 mmol/L (98-107)
[2016-09-22 23:25] LABS: SODIUM 120 mmol/L (132-148)
[2016-09-22 23:26] LABS: ALB/GLOB RATIO 1.2 (1.0-2.1); ALKALINE PHOSPHATASE 35 U/L (38-126); ALT/SGPT 10 U/L (21-72); AST/SGOT 25 U/L (17-59); BILIRUBIN,TOTAL 0.9 mg/dL (0.2-1.3); BLOOD UREA NITROGEN 18 mg/dL (9-20); CARBON DIOXIDE 20 mmol/L (22-30); GFR AFRICAN-AMERICAN > 60; GLUCOSE,RANDOM 59 mg/dL (75-110); TOTAL PROTEIN 6.9 g/dL (6.3-8.3)
[2016-09-22] MEDS ORDERED: Piperacillin/Tazobact 3.375 gm 100 ML IVPB STA (23:26)
[2016-09-22 23:31] LABS: VENOUS BLOOD GAS BASE EXCESS -3.2 mmol/L (0.0-2.0); VENOUS BLOOD GAS PCO2 26 mmHg (40-60); VENOUS BLOOD PH 7.47 (7.32-7.43)
[2016-09-22 23:35] LABS: INR 1.4
[2016-09-22] MEDS ORDERED: Sodium Chloride 0.9% 1,000 ML IV ONE (23:38)
[2016-09-23] MEDS ORDERED: Piperacillin/Tazobact 3.375 gm 100 ML IVPB ONE (00:04)
--- NOTE | 2016-09-23 00:39 | CP.PCM.CON ---
History of Present Illness - History of Present Illness History of Present Illness: A 71 year old male with a hx of urinary retention and hematuria 08/26/16, discharged 08/29/16 with indwelling shields catheter , DM,rheumatoid arthritis, asthma and hyperlipidemia presents to the ED c/o fever, decreased urine output and general malaise for a few days. Patient reports symptoms are worse today. Patient denies vomiting, diarrhea, flank pain, chest pain,dyspnea.c/o intermittent dry cough patient was followed up by PMD after discharge but not by Urology. In Er patient had temp 104F,hypotensive Systolic BP in the 80's ,alert awake, denies dizziness,palpitations. lactate 3.1,sodium 120 Review of Systems - Constitutional Constitutional: Anorexia, Chills, Fever, Malaise - EENT Eyes: absent: Diplopia, Itchy Eyes Ears: absent: Ear Discharge, Ear Pain, Dizziness Nose/Mouth/Throat: As Per HPI. absent: Dry Mouth, Sore Throat - Cardiovascular Cardiovascular: absent: Chest Pain, Diaphoresis, Dyspnea, Edema - Respiratory Respiratory: As Per HPI. absent: Dyspnea, Chest Congestion, Excessive Mucous Production - Gastrointestinal Gastrointestinal: absent: Abdominal Pain, Change in Bowel Habits, Nausea, Vomiting - Genitourinary Genitourinary: absent: Dysuria Additional comments: decreased urine output via shields catheter - Musculoskeletal Musculoskeletal: absent: Back Pain - Integumentary Integumentary: absent: Sores - Neurological Neurological: absent: Headaches - Endocrine Endocrine: absent: Polyphagia, Polyuria - Hematologic/Lymphatic Hematologic: absent: Easy Bleeding Past Patient History - Infectious Disease Hx of Infectious Diseases: None - Past Medical History & Family History Past Medical History?: Yes - Past Social History Smoking Status: Never Smoked Chewing Tobacco Use: No Cigar Use: No Alcohol: None Drugs: Denies Home Situation {Lives}: With Family - CARDIAC Hx Hypercholesterolemia: Yes - PULMONARY Hx Asthma: Yes - ENDOCRINE/METABOLIC Hx Diabetes Mellitus Type 2: Yes - MUSCULOSKELETAL/RHEUMATOLOGICAL Hx Rheumatoid Arthritis: Yes - GENITOURINARY/GYNECOLOGICAL Other/Comment: urinary retention. indwelling shields inserted 2 wks ago, and presently in place - PSYCHIATRIC Hx Substance Use: No - SURGICAL HISTORY Hx Appendectomy: Yes - ANESTHESIA Hx Anesthesia: Yes Hx Anesthesia Reactions: No Hx Malignant Hyperthermia: No Meds Allergies/Adverse Reactions: Allergies Allergy/AdvReac Type Severity Reaction Status Date / Time No Known Allergies Allergy Verified 09/22/16 22:31 - Medications Medications: Current Medications Sodium Chloride (Sodium Chloride 0.9%) 1,000 mls @ 300 mls/hr IV .Q3H20M TISH Sodium Chloride (Sodium Chloride 0.9%) 1,000 mls @ 1,000 mls/hr IV .Q1H ONE Stop: 09/23/16 00:37 Vancomycin HCl (Vancomycin 1gm In Normal Saline Addvantage) 250 mls @ 166.667 mls/hr IVPB STAT TISH Physical Exam - Constitutional Appears: Non-toxic - Head Exam Head Exam: absent: ATRAUMATIC, NORMAL INSPECTION, NORMOCEPHALIC - Eye Exam Eye Exam: absent: EOMI, PERRL Pupil Exam: absent: NORMAL ACCOMODATION - ENT Exam ENT Exam: absent: Mucous Membranes Dry - Neck Exam Neck exam: Positive for: Normal Inspection - Respiratory Exam Respiratory Exam: Clear to Auscultation Bilateral, NORMAL BREATHING PATTERN. absent: Wheezes - Cardiovascular Exam Cardiovascular Exam: REGULAR RHYTHM. absent: JVD - GI/Abdominal Exam GI & Abdominal Exam: Normal Bowel Sounds, Soft. absent: Distended, Tenderness - Rectal Exam Rectal Exam: Deferred (shields catheter) Results - Vital Signs Recent Vital Signs: Last Vital Signs Temp 101.5 F H 09/22/16 22:37 Pulse 99 H 09/23/16 00:06 Resp 24 09/23/16 00:06 BP 82/46 L 09/23/16 00:06 Pulse Ox 100 09/23/16 00:29 - Labs Result Diagrams: 09/22/16 23:12 09/22/16 23:12 - EKG Data EKG Interpreted by: Myself EKG shows normal: Sinus rhythm - Imaging and Cardiology Chest x-ray Status: Image reviewed by me (no infiltrate) Assessment & Plan - Assessment and Plan (Free Text) Assessment: 1.Uro sepsis-During previous infection patient had Beta hemolytic group B strep in Urine culture.H/O BPH UA and culture IVF,antibiotics.f/u cultures Received zosyn and Vancomycin in Er Shields catheter discontinued in ER continue flomax 2.Asthma on serevent and albuterol nebulizer at home. 3.Rheumatoid arthritis on meds 4.Diabetes continue meds 5.Hyponatremia-f/u lytes 6.Hyperlipidemia-on meds
[2016-09-23 01:17] LABS: GRANULAR CAST 11 /lpf (0-1); RBC URINE 67 /hpf (0-3); URINE BACTERIA OCC (<OCC); URINE BILIRUBIN NEGATIVE (NEGATIVE); URINE BLOOD 2+ (NEGATIVE); URINE COLOR Yellow (YELLOW); URINE GLUCOSE (UA) NORMAL (Normal); URINE KETONE NEGATIVE (NEGATIVE); URINE LEUKOCYTE ESTERASE 3+ Leu/uL (Negative); URINE PROTEIN 2+ mg/dL (NEGATIVE); URINE UROBILINOGEN NORMAL mg/dL (0.2-1.0); WBC URINE 515 /hpf (0-5)
[2016-09-23] MEDS ORDERED: Dextrose 5%/0.9% NS 1,000 ML IV ONE ×5 (01:24→11:33)
[2016-09-23 01:47] LABS: NEUTROPHIL 80 % (50-75); TOTAL CELLS COUNTED 100
[2016-09-23 01:48] LABS: LARGE PLATELETS PRESENT
[2016-09-23 05:56] LABS: BASO % 0.1 % (0.0-2.0); HEMATOCRIT 29.7 % (35.0-51.0); LYMPH # 0.5 K/uL (1.0-4.3); LYMPH % 6.2 % (20.0-40.0); MEAN CELL VOLUME 78.7 fL (80.0-94.0); MEAN CORPUSCULAR HEMOGLOBIN 25.8 pg (27.0-31.0); MEAN CORPUSCULAR HGB CONC 32.7 g/dL (33.0-37.0); MEAN PLATELET VOLUME 8.6 fL (7.2-11.7); MONO # 0.3 K/uL (0.0-0.8); MONO % 3.4 % (0.0-10.0); PLATELET COUNT 105 K/uL (130-400); RED CELL DISTRIBUTION WIDTH 16.4 % (11.5-14.5); WHITE BLOOD COUNT 8.3 K/uL (4.8-10.8)
[2016-09-23 07:35] LABS: CHLORIDE 92 mmol/L (98-107)
[2016-09-23 07:36] LABS: POTASSIUM 3.5 mmol/L (3.6-5.2); SODIUM 122 mmol/L (132-148)
[2016-09-23 07:38] LABS: BILIRUBIN,TOTAL 0.8 mg/dL (0.2-1.3); CARBON DIOXIDE 19 mmol/L (22-30); GFR AFRICAN-AMERICAN > 60; TOTAL PROTEIN 5.4 g/dL (6.3-8.3)
--- NOTE | 2016-09-23 07:38 | PCM.SEPTIC ---
Sepsis Progress Note - Reassessment Type Date of Evaluation: 09/23/16 Time of Evaluation: 08:00 Reassessment Type: Non-invasive reassessment - Non Invasive Reassessment Were the most recent vital sign reviewed: Yes Vital Sign (Latest): Temp Pulse Resp BP Pulse Ox 97.6 F 94 H 25 H 98/54 L 96 09/23/16 04:00 09/23/16 06:01 09/23/16 06:01 09/23/16 06:01 09/23/16 06:01 Cardiovascular: Yes: Tachycardia Respiratory: Yes: Normal Breath Sounds. No: Accessory Muscle Use, Rales, Respiratory Distress Capillary Refill: Normal (Less than 2 sec) Pulses: Normal Radial, Normal Dorsalis Pedis, Normal Posterior Tibialis Skin: Normal Color, Dry - Invasive Reassessment (complete 2 of 4) Was a Central Venous Pressure Measurement obtained within 6 Hours after the presentation of septic shock: No Was a central venous oxygen measurement obtained within 6 hours after the presentation of septic shock: No Was a bedside cardiovascular ultrasound performed within 6 hours after the presentation of septic shock: No Was a passive leg raise performed or was a fluid challenge performed within 6 hrs of the initial fluid bolus: Yes Fluid Challenge performed: Yes
[2016-09-23 07:39] LABS: ALKALINE PHOSPHATASE 34 U/L (38-126); ALT/SGPT 21 U/L (21-72); AST/SGOT 25 U/L (17-59); BLOOD UREA NITROGEN 15 mg/dL (9-20); CALCIUM 7.1 mg/dl (8.6-10.4); GLUCOSE,RANDOM 87 mg/dL (75-110); PHOSPHOROUS 2.2 mg/dL (2.5-4.5)
[2016-09-23] MEDS ORDERED: Potassium Chloride 20 mEq ER Tab PO ONE (08:10)
[2016-09-23] MEDS: Magnesium Sulfate 1 gm in D5W 1 GM/100 ML BAG IVPB SCH ×2 (08:13→08:53)
[2016-09-23] MEDS: (Novolin R) Insulin Human Regular 100 units/ml vial SC SCH ×4 (08:17→23:26)
[2016-09-23 08:31] LABS: NEUTROPHIL 74 % (50-75); TOTAL CELLS COUNTED 100
[2016-09-23] MEDS ORDERED: Piperacillin/Tazobact 3.375 GM in Sodium Chloride 100 ML IVPB SCH (09:00)
--- NOTE | 2016-09-23 09:01 | RAD ---
PROCEDURE: CHEST RADIOGRAPH, 1 VIEW HISTORY: Shortness of breath COMPARISON: None available. FINDINGS: LUNGS: Clear. PLEURA: No pneumothorax or pleural fluid seen. CARDIOVASCULAR: Normal. OSSEOUS STRUCTURES: No significant abnormalities. VISUALIZED UPPER ABDOMEN: Normal. OTHER FINDINGS: None. IMPRESSION: No active disease.
[2016-09-23] MEDS: Enoxaparin 40 mg Syringe SC SCH (09:44)
[2016-09-23] MEDS ORDERED: Albuterol-Ipratrop 3 mg / 0.5 (3 ml) UD INH STA (10:35)
[2016-09-23] MEDS ORDERED: Albuterol-Ipratrop 3 mg / 0.5 (3 ml) UD INH PRN (10:35)
[2016-09-23] MEDS ORDERED: MethylPREDNISolone 40 mg Vial IVP STA (11:13)
--- NOTE | 2016-09-23 12:34 | CP.PCM.CON ---
History of Present Illness - History of Present Illness History of Present Illness: INFECTIOUS DISEASE CONSULT .HPI;71-year-old male with history off diabetes mellitus, rheumatoid arthritis, prostate problems who was recently hospitalized at [facility] from 08/26/16 TO 08/29/16 because of urinary obstruction and urinary retention and acute hematuria post Shields insertion and treated with IV and oral antibiotics including Augmentin by mouth 875 twice a day for 10 days post discharge. Patient's urine culture was positive for Streptococcus group B sensitive to penicillin. Patient was supposed to follow-up with as he had a Shields catheter inserted at the time of admission by Dr. Sanz. As per patient he was unable to GET AN APPOINTMENT WITH Dr. Sanz. Last night patient came to ER with elevated temperature of 104 hypotensive with blood pressure in the 80s. Patient Shields catheter was removed at that time in the ER. An appropriate cultures were done. Patient received 1 dose off vancomycin 1 g and Zosyn 3.375 every 6 hourly was initiated. Patient was also found to be hyponatremic with a sodium in the range of 120. Patient serum lactate was also elevated to 3.1 on admission with increasing leukocytosis.Patient was admitted to ICU for further management AND CLOSE OBSERVATION.. Infectious disease consultation requested by PMD for further evaluation. A CT scan of the abdomen and pelvis with and without contrast was obtained , DURING LAST HOSPITALIZATION ,WHICH showed multiple bilateral low-density lesions compatible with cysts the largest being on the left upper pole with an exophytic lesion about 4.6 cm. There was also an exophytic hypodense lesion 1.8 cm on the right lateral mid pole kidney. Etiology not clear but hemorrhagic cyst/versus neoplasm is in consideration. PATIENT PRESENTLY VOIDING BUT COMPLAINS OF DYSURIA AND SCANTY URINATION. DENIES ANY HEMATURIA OR PASSAGE OF ANY STONES. PATIENT ADMITS TO FEELING VERY WEAK WITH FEVERS PAST SURGICAL HISTORY; APPENDICECTOMY PMH: Rheumatoid Arthritis,DIABETES MELLITUS, PROSTATE PROBLEMS. Family History: States: Unknown Family Hx - Social History Hx Alcohol Use: No Hx Substance Use: No - Immunization History Hx Tetanus Toxoid Vaccination: No Hx Influenza Vaccination: Yes Hx Pneumococcal Vaccination: No Review of Systems - Constitutional Constitutional: Chills, Fever, Lethargy - EENT Eyes: absent: Change in Vision Nose/Mouth/Throat: Dry Mouth. absent: Dysphagia - Cardiovascular Cardiovascular: absent: Chest Pain, Dyspnea - Respiratory Respiratory: absent: Cough, Chest Congestion - Gastrointestinal Gastrointestinal: absent: Abdominal Pain, Diarrhea, Nausea, Vomiting - Genitourinary Genitourinary: Dysuria, Urinary Frequency, Voiding Freq/Small Amts, Freq UTI. absent: Hematuria - Reproductive: Male Reproductive:Male: Pelvic Pain - Hematologic/Lymphatic Hematologic: As Per HPI. absent: Easy Bruising, Lymphadenopathy Past Patient History - Infectious Disease Hx of Infectious Diseases: None - Past Medical History & Family History Past Medical History?: Yes - Past Social History Smoking Status: Never Smoked - CARDIAC Hx Cardiac Disorders: Yes Hx Hypercholesterolemia: Yes - PULMONARY Hx Respiratory Disorders: Yes Hx Asthma: Yes - NEUROLOGICAL Hx Neurological Disorder: No - HEENT Hx HEENT Problems: Yes Other/Comment: eyeglasses for reading - RENAL Hx Chronic Kidney Disease: No - ENDOCRINE/METABOLIC Hx Endocrine Disorders: Yes Hx Diabetes Mellitus Type 2: Yes - HEMATOLOGICAL/ONCOLOGICAL Hx Blood Disorders: No - INTEGUMENTARY Hx Dermatological Problems: No - MUSCULOSKELETAL/RHEUMATOLOGICAL Hx Falls: No - GASTROINTESTINAL Hx Gastrointestinal Disorders: No - GENITOURINARY/GYNECOLOGICAL Hx Genitourinary Disorders: Yes Other/Comment: urinary retention. indwelling shields inserted 2 wks ago, and presently in place - PSYCHIATRIC Hx Psychophysiologic Disorder: No - SURGICAL HISTORY Hx Surgeries: Yes Hx Appendectomy: Yes - ANESTHESIA Hx Anesthesia: Yes Hx Anesthesia Reactions: No Hx Malignant Hyperthermia: No Has any member of the family had a problem w/ anesthesia?: No Meds Allergies/Adverse Reactions: Allergies Allergy/AdvReac Type Severity Reaction Status Date / Time No Known Allergies Allergy Verified 09/22/16 22:31 - Medications Medications: Current Medications Albuterol/Ipratropium (Duoneb 3 Mg/0.5 Mg (3 Ml) Ud) 3 ml INH RQ6 PRN PRN Reason: Shortness of Breath Enoxaparin Sodium (Lovenox) 40 mg SC DAILY [facility] Last Admin: 09/23/16 09:44 Dose: 40 mg Famotidine (Pepcid) 20 mg PO BID [facility] Last Admin: 09/23/16 09:43 Dose: 20 mg Glipizide (Glucotrol) 5 mg PO DAILY [facility] Last Admin: 09/23/16 10:14 Dose: 5 mg Vancomycin HCl (Vancomycin 1gm In Normal Saline Addvantage) 250 mls @ 166.667 mls/hr IVPB STAT [facility] Imipenem/Cilastatin Sodium 500 (mg/ Sodium Chloride) 100 mls @ 100 mls/hr IVPB Q6H [facility] Last Admin: 09/23/16 10:50 Dose: 100 mls/hr Vancomycin/Sodium Chloride (Vancocin) 1 gm in 200 mls @ 133.333 mls/hr IVPB Q24H [facility] Dextrose/Sodium Chloride (Dextrose 5%/0.9% Ns 1000 Ml) 1,000 mls @ 100 mls/hr IV .Q10H ONE Stop: 09/23/16 21:31 Insulin Human Regular (Novolin R) 0 unit SC ACHS [facility] PRN Reason: Protocol Last Admin: 09/23/16 12:07 Dose: 4 unit Metformin HCl (Glucophage) 1,000 mg PO BID [facility] Last Admin: 09/23/16 10:14 Dose: 1,000 mg Pneumococcal Polyvalent Vaccine (Pneumovax 23 Vaccine) 0.5 ml IM .ONCE ONE Stop: 09/25/16 10:01 Tamsulosin HCl (Flomax) 0.4 mg PO DAILY [facility] Last Admin: 09/23/16 09:43 Dose: 0.4 mg Physical Exam - Constitutional Appears: No Acute Distress - Head Exam Head Exam: NORMAL INSPECTION - Eye Exam Eye Exam: EOMI, PERRL. absent: Scleral icterus - ENT Exam ENT Exam: Normal Oropharynx - Neck Exam Neck exam: Positive for: Normal Inspection - Respiratory Exam Respiratory Exam: Clear to Auscultation Bilateral. absent: Wheezes - Cardiovascular Exam Cardiovascular Exam: Tachycardia, REGULAR RHYTHM, +S1, +S2 - GI/Abdominal Exam GI & Abdominal Exam: Normal Bowel Sounds, Soft. absent: Distended, Guarding, Rebound - Extremities Exam Extremities exam: Positive for: normal capillary refill, pedal pulses present. Negative for: calf tenderness, pedal edema - Neurological Exam Neurological exam: Alert, CN II-XII Intact, Oriented x3, Reflexes Normal - Skin Skin Exam: Normal Color, Warm Results - Vital Signs Recent Vital Signs: Last Vital Signs Temp 98 F 09/23/16 08:00 Pulse 107 H 09/23/16 11:02 Resp 30 H 09/23/16 11:02 BP 131/72 09/23/16 11:02 Pulse Ox 95 09/23/16 11:02 - Labs Result Diagrams: 09/23/16 05:48 09/23/16 05:48 Labs: Laboratory Results - last 24 hr 09/23/16 09/23/16 09/23/16 00:35 01:08 01:09 WBC RBC Hgb Hct MCV MCH MCHC RDW Plt Count MPV Neut % (Auto) Lymph % (Auto) [place] % (Auto) Eos % (Auto) Baso % (Auto) Neut # Lymph # [place] # Eos # Baso # Neutrophils % (Manual) Band Neutrophils % Lymphocytes % (Manual) Monocytes % (Manual) Platelet Estimate Hypochromasia (manual) Anisocytosis (manual) Ovalocytes Epifanio Cells Sodium Potassium Chloride Carbon Dioxide Anion Gap BUN Creatinine Est GFR ( Amer) Est GFR (Non-Af Amer) POC Glucose (mg/dL) 52 L Random Glucose Lactic Acid Calcium Phosphorus Magnesium Total Bilirubin AST ALT Alkaline Phosphatase Total Protein Albumin Globulin Albumin/Globulin Ratio Urine Color Cancelled Yellow Urine Clarity Cancelled Turbid Urine pH Cancelled 5.0 Ur Specific [place] Cancelled 1.011 Urine Protein Cancelled 2+ H Urine Glucose (UA) Cancelled Normal Urine Ketones Cancelled Negative Urine Blood Cancelled 2+ H Urine Nitrate Cancelled Negative Urine Bilirubin Cancelled Negative Urine Urobilinogen Cancelled Normal Ur Leukocyte Esterase Cancelled 3+ H Urine WBC (Auto) Cancelled 515 H Urine RBC (Auto) Cancelled 67 H Urine WBC Clumps (Auto) Cancelled Ur Squamous Epith Cells Cancelled 1 Ur Transition Epith Cell Cancelled Ur Renal Epithelial Cell Cancelled Calcium Carbonate Cryst Cancelled Calcium Phos [place]ann[place] (Auto) Cancelled Calcium Oxalate Crystal Cancelled Leucine Crystals Cancelled Cystine Crystals Cancelled Uric Acid Crystals Cancelled Triple Phos Crystals Cancelled Tyrosine Crystals Cancelled Other Crystals Cancelled Amorphous Sediment Cancelled Urine Bacteria Cancelled Occ H Epithelial Casts (Auto) Cancelled Fatty Casts Cancelled Hyaline Casts Cancelled Granular Casts (Auto) Cancelled 11 Waxy Casts Cancelled Broad Casts Cancelled RBC Casts Cancelled WBC Casts Cancelled Other Casts Cancelled Urine Trichomonas Cancelled Ur Yeast w Hyphae Cancelled Urine Yeast (Budding) Cancelled Urine Sperm (Auto) Cancelled Ur Oval Fat Bodies Auto Cancelled 09/23/16 09/23/16 09/23/16 05:48 05:48 05:48 WBC 8.3 D RBC 3.77 L Hgb 9.7 L Hct 29.7 L MCV 78.7 L MCH 25.8 L MCHC 32.7 L RDW 16.4 H Plt Count 105 L D MPV 8.6 Neut % (Auto) 90.3 H Lymph % (Auto) 6.2 L [place] % (Auto) 3.4 Eos % (Auto) 0.0 Baso % (Auto) 0.1 Neut # 7.5 H Lymph # 0.5 L [place] # 0.3 Eos # 0.0 Baso # 0.0 Neutrophils % (Manual) 74 Band Neutrophils % 18 H* Lymphocytes % (Manual) 6 L Monocytes % (Manual) 2 Platelet Estimate Slightly decreased L Hypochromasia (manual) Slight Anisocytosis (manual) Slight Ovalocytes Slight Epifanio Cells Slight Sodium 122 L Potassium 3.5 L Chloride 92 L Carbon Dioxide 19 L Anion Gap 15 BUN 15 Creatinine 0.9 Est GFR ( Amer) > 60 Est GFR (Non-Af Amer) > 60 POC Glucose (mg/dL) Random Glucose 87 Lactic Acid 3.4 H Calcium 7.1 L Phosphorus 2.2 L Magnesium 1.0 L* Total Bilirubin 0.8 AST 25 ALT 21 D Alkaline Phosphatase 34 L Total Protein 5.4 L Albumin 2.8 L D Globulin 2.7 Albumin/Globulin Ratio 1.0 Urine Color Urine Clarity Urine pH Ur Specific [place] Urine Protein Urine Glucose (UA) Urine Ketones Urine Blood Urine Nitrate Urine Bilirubin Urine Urobilinogen Ur Leukocyte Esterase Urine WBC (Auto) Urine RBC (Auto) Urine WBC Clumps (Auto) Ur Squamous Epith Cells Ur Transition Epith Cell Ur Renal Epithelial Cell Calcium Carbonate Cryst Calcium Phos [place]ann[place] (Auto) Calcium Oxalate Crystal Leucine Crystals Cystine Crystals Uric Acid Crystals Triple Phos Crystals Tyrosine Crystals Other Crystals Amorphous Sediment Urine Bacteria Epithelial Casts (Auto) Fatty Casts Hyaline Casts Granular Casts (Auto) Waxy Casts Broad Casts RBC Casts WBC Casts Other Casts Urine Trichomonas Ur Yeast w Hyphae Urine Yeast (Budding) Urine Sperm (Auto) Ur Oval Fat Bodies Auto 09/23/16 09/23/16 07:58 11:56 WBC RBC Hgb Hct MCV MCH MCHC RDW Plt Count MPV Neut % (Auto) Lymph % (Auto) [place] % (Auto) Eos % (Auto) Baso % (Auto) Neut # Lymph # [place] # Eos # Baso # Neutrophils % (Manual) Band Neutrophils % Lymphocytes % (Manual) Monocytes % (Manual) Platelet Estimate Hypochromasia (manual) Anisocytosis (manual) Ovalocytes [place] Cells Sodium Potassium Chloride Carbon Dioxide Anion Gap BUN Creatinine Est GFR ( Amer) Est GFR (Non-Af Amer) POC Glucose (mg/dL) 96 318 H Random Glucose Lactic Acid Calcium Phosphorus Magnesium Total Bilirubin AST ALT Alkaline Phosphatase Total Protein Albumin Globulin Albumin/Globulin Ratio Urine Color Urine Clarity Urine pH Ur Specific [place] Urine Protein Urine Glucose (UA) Urine Ketones Urine Blood Urine Nitrate Urine Bilirubin Urine Urobilinogen Ur Leukocyte Esterase Urine WBC (Auto) Urine RBC (Auto) Urine WBC Clumps (Auto) Ur Squamous Epith Cells Ur Transition Epith Cell Ur Renal Epithelial Cell Calcium Carbonate Cryst Calcium Phos [place] (Auto) Calcium Oxalate Crystal Leucine Crystals Cystine Crystals Uric Acid Crystals Triple Phos Crystals Tyrosine Crystals Other Crystals Amorphous Sediment Urine Bacteria Epithelial Casts (Auto) Fatty Casts Hyaline Casts Granular Casts (Auto) Waxy Casts Broad Casts RBC Casts WBC Casts Other Casts Urine Trichomonas Ur Yeast w Hyphae Urine Yeast (Budding) Urine Sperm (Auto) Ur Oval Fat Bodies Auto Assessment & Plan (1) Sepsis Status: Acute (2) Fever Status: Acute (3) UTI (urinary tract infection) Status: Acute (4) Hyponatremia Status: Acute (5) Diabetes mellitus Status: Acute (6) Rheumatoid arthritis Status: Acute - Assessment and Plan (Free Text) Assessment: PLAN; pANCULTURES UA AND URINE CULTURES dc iv zOSYN. START iv pRIMAXIN 500 MG iv PIGGYBACK 6 HOURLY. 09/23/16. CONTINUE iv VANCOMYCIN 1 G EVERY 24 HOURLY WHILE AWAITING CULTURES. 09/22/16. EVALUATION IN PROGRESS. iv FLUIDS AND POTASSIUM SUPPLEMENT NEEDED BY TREATING ENGINEER/PMD. . FOLLOW-UP CULTURES TO ADJUST ANTIBIOTICS. WATCH FOR THROMBOCYTOPENIA LAST PLATELET COUNT 105 K. WILL FOLLOW ALONG WITH YOU AND MAKE RECOMMENDATIONS NEEDED. THANK YOU.
--- NOTE | 2016-09-23 13:19 | CP.PCM.HP ---
History of Present Illness - History of Present Illness History of Present Illness: COMPREHENSIVE HISTORY & PHYSICAL EXAM HPI ADMITTED FROM ER WITH SEPSIS SYNDROME . RECENTLY PT WAS ADMITTED WITH ACUTE URINARY RETENTION REQUIRING INDWELLING FOLEYS CATHER. URINE SHOWED STREP INFECTION. TREATED WITH PO AUGMENTIN. DID NOT F/U UROLOGY PT. HAD TEMP OF 104F WITH SYS. BP OF 80 MM OF HG. AND HYPONA. WITH SCANTY URINE OUT PUT . PT ADMITTED IN ICU PAST HIST. HTN/RA/HEMATURIA /HYPERCHOLESTEROL/COPD PERSONAL HIST: Smoking. N Alcohol. N Allergy N Travel_- . FAMILY HIST : ROS : Constitutional: GEM WEAKNESS Eyes: Negative for redness, swelling, itching, discharge, vision changes, blurry vision, double vision, glaucoma, cataracts, Ears: Negative for hearing loss, ringing, , tinnitus, vertigo Nose: Negative for rhinorrhea, stuffiness, sniffing, itching, postnasal drip, discoloration, nasal congestion and epistaxis. Throat: Negative for throat clearing, sore throat, hoarseness, difficulty swallowing and difficulty speaking. Respiratory: Negative for cough, chest tightness, sputum or phlegm, chronic cough, hemoptysis, wheezing, snoring at night, pleuritic chest pain and daytime somnolence. Cardiovascular: Negative for chest pain, palpitations, orthopnea, PND, Edema of legs, leg cramps, angina, claudication, , irregular heartbeat, Neurology: Negative for irritability, muscle weakness, numbness and tingling, seizures, tremors, migraines, slurred speech, syncope, memory loss, mood changes , recurrent headaches Gastrointestinal: Negative for difficulty swallowing, diarrhea, constipation, black stools, rectal bleeding, nausea, flatulence, reflux, poor appetite, changes in bowel habits, abdominal pain Genitourinary: Negative for frequent urination, hematuria, discharge, incontinence, urinary retention, frequent UTI, Psychiatric: Negative for depression, anxiety/panic, suicidal tendencies, Musculoskeletal: Negative for swollen joints, back pain, , neck pain, morning stiffness of joints, . Skin: Negative for rash, ulcers, itching, dry skin and pigmented lesions. P/E: Constitutional: Appears stated age and in no apparent distress. Head: Normocephalic. Ears: External ear canals patent without inflammation. Tympanic membranes intact with normal light reflex and landmark. Eyes: Pupils are central, bilaterally equal, symmetrical and reacts to light with normal movements and no icterus or pallor. Nose: External nares are patent. Mucosa is pink Mouth-Throat: Good general appearance and condition. No post-pharyngeal/oropharyngeal erythema and tonsillar hypertrophy. Good dental hygiene. Neck-Lymphatic: Neck is supple with normal ROM, no thyromegaly, lymph nodes or masses. JVD is normal with no carotid bruit. Lungs: Clear to percussion and auscultation with bilateral normal air entry. Cardiovascular: S1 and S2 are normal with no murmurs, gallops and rub. GI Exam: No hepatomegaly. Abdomen is soft and non-tender. No Organomegaly , masses or hernias are evident and bowel sounds are normal and active. Neurology: Higher function and all cranial nerves intact, with no gross motor or sensory deficit. Superficial and deep reflexes are normal with downwards planters. No cerebellar deficit with normal gait. Musculoskeletal: No tender spots with normal curvature of the spine with no swelling or restricted ROM of the small and large joints. Extremities: Homans sign absent. Intact pulses with no pitting edema, calf tenderness or skin color changes. Skin: No rash, eruptions or abnormal skin pigmentation LAB/RADIOLOGY: ASSESMENT : SEPSIS SYNDROME SEC URINE/LUNG COPD WITH EXACERBATION RA PLAN: ID/UROLOGY EVAL IV AB NEB Present on Admission - Present on Admission Any Indicators Present on Admission: No Past Patient History - Infectious Disease Hx of Infectious Diseases: None - Past Medical History & Family History Past Medical History?: Yes - Past Social History Smoking Status: Never Smoked - CARDIAC Hx Cardiac Disorders: Yes Hx Hypercholesterolemia: Yes - PULMONARY Hx Respiratory Disorders: Yes Hx Asthma: Yes - NEUROLOGICAL Hx Neurological Disorder: No - HEENT Hx HEENT Problems: Yes Other/Comment: eyeglasses for reading - RENAL Hx Chronic Kidney Disease: No - ENDOCRINE/METABOLIC Hx Endocrine Disorders: Yes Hx Diabetes Mellitus Type 2: Yes - HEMATOLOGICAL/ONCOLOGICAL Hx Blood Disorders: No - INTEGUMENTARY Hx Dermatological Problems: No - MUSCULOSKELETAL/RHEUMATOLOGICAL Hx Falls: No - GASTROINTESTINAL Hx Gastrointestinal Disorders: No - GENITOURINARY/GYNECOLOGICAL Hx Genitourinary Disorders: Yes Other/Comment: urinary retention. indwelling shields inserted 2 wks ago, and presently in place - PSYCHIATRIC Hx Psychophysiologic Disorder: No - SURGICAL HISTORY Hx Surgeries: Yes Hx Appendectomy: Yes - ANESTHESIA Hx Anesthesia: Yes Hx Anesthesia Reactions: No Hx Malignant Hyperthermia: No Has any member of the family had a problem w/ anesthesia?: No Meds Allergies/Adverse Reactions: Allergies Allergy/AdvReac Type Severity Reaction Status Date / Time No Known Allergies Allergy Verified 09/22/16 22:31 Results - Vital Signs Recent Vital Signs: Last Vital Signs Temp 99.7 F H 09/23/16 12:00 Pulse 99 H 09/23/16 13:00 Resp 25 H 09/23/16 13:00 BP 113/61 09/23/16 13:01 Pulse Ox 98 09/23/16 13:00 - Labs Result Diagrams: 09/23/16 05:48 09/23/16 05:48 Labs: Laboratory Results - last 24 hr 09/23/16 09/23/16 09/23/16 00:35 01:08 01:09 WBC RBC Hgb Hct MCV MCH MCHC RDW Plt Count MPV Neut % (Auto) Lymph % (Auto) [place] % (Auto) Eos % (Auto) Baso % (Auto) Neut # Lymph # [place] # Eos # Baso # Neutrophils % (Manual) Band Neutrophils % Lymphocytes % (Manual) Monocytes % (Manual) Platelet Estimate Hypochromasia (manual) Anisocytosis (manual) Ovalocytes [place] Cells Sodium Potassium Chloride Carbon Dioxide Anion Gap BUN Creatinine Est GFR ( Amer) Est GFR (Non-Af Amer) POC Glucose (mg/dL) 52 L Random Glucose Lactic Acid Calcium Phosphorus Magnesium Total Bilirubin AST ALT Alkaline Phosphatase Total Protein Albumin Globulin Albumin/Globulin Ratio Urine Color Cancelled Yellow Urine Clarity Cancelled Turbid Urine pH Cancelled 5.0 Ur Specific [place] Cancelled 1.011 Urine Protein Cancelled 2+ H Urine Glucose (UA) Cancelled Normal Urine Ketones Cancelled Negative Urine Blood Cancelled 2+ H Urine Nitrate Cancelled Negative Urine Bilirubin Cancelled Negative Urine Urobilinogen Cancelled Normal Ur Leukocyte Esterase Cancelled 3+ H Urine WBC (Auto) Cancelled 515 H Urine RBC (Auto) Cancelled 67 H Urine WBC Clumps (Auto) Cancelled Ur Squamous Epith Cells Cancelled 1 Ur Transition Epith Cell Cancelled Ur Renal Epithelial Cell Cancelled Calcium Carbonate Cryst Cancelled Calcium Phos Jannette (Auto) Cancelled Calcium Oxalate Crystal Cancelled Leucine Crystals Cancelled Cystine Crystals Cancelled Uric Acid Crystals Cancelled Triple Phos Crystals Cancelled Tyrosine Crystals Cancelled Other Crystals Cancelled Amorphous Sediment Cancelled Urine Bacteria Cancelled Occ H Epithelial Casts (Auto) Cancelled Fatty Casts Cancelled Hyaline Casts Cancelled Granular Casts (Auto) Cancelled 11 Waxy Casts Cancelled Broad Casts Cancelled RBC Casts Cancelled WBC Casts Cancelled Other Casts Cancelled Urine Trichomonas Cancelled Ur Yeast w Hyphae Cancelled Urine Yeast (Budding) Cancelled Urine Sperm (Auto) Cancelled Ur Oval Fat Bodies Auto Cancelled 09/23/16 09/23/16 09/23/16 05:48 05:48 05:48 WBC 8.3 D RBC 3.77 L Hgb 9.7 L Hct 29.7 L MCV 78.7 L MCH 25.8 L MCHC 32.7 L RDW 16.4 H Plt Count 105 L D MPV 8.6 Neut % (Auto) 90.3 H Lymph % (Auto) 6.2 L [place] % (Auto) 3.4 Eos % (Auto) 0.0 Baso % (Auto) 0.1 Neut # 7.5 H Lymph # 0.5 L [place] # 0.3 Eos # 0.0 Baso # 0.0 Neutrophils % (Manual) 74 Band Neutrophils % 18 H* Lymphocytes % (Manual) 6 L Monocytes % (Manual) 2 Platelet Estimate Slightly decreased L Hypochromasia (manual) Slight Anisocytosis (manual) Slight Ovalocytes Slight [place] Cells Slight Sodium 122 L Potassium 3.5 L Chloride 92 L Carbon Dioxide 19 L Anion Gap 15 BUN 15 Creatinine 0.9 Est GFR ( Amer) > 60 Est GFR (Non-Af Amer) > 60 POC Glucose (mg/dL) Random Glucose 87 Lactic Acid 3.4 H Calcium 7.1 L Phosphorus 2.2 L Magnesium 1.0 L* Total Bilirubin 0.8 AST 25 ALT 21 D Alkaline Phosphatase 34 L Total Protein 5.4 L Albumin 2.8 L D Globulin 2.7 Albumin/Globulin Ratio 1.0 Urine Color Urine Clarity Urine pH Ur Specific [place] Urine Protein Urine Glucose (UA) Urine Ketones Urine Blood Urine Nitrate Urine Bilirubin Urine Urobilinogen Ur Leukocyte Esterase Urine WBC (Auto) Urine RBC (Auto) Urine WBC Clumps (Auto) Ur Squamous Epith Cells Ur Transition Epith Cell Ur Renal Epithelial Cell Calcium Carbonate Cryst Calcium Phos [place]annette (Auto) Calcium Oxalate Crystal Leucine Crystals Cystine Crystals Uric Acid Crystals Triple Phos Crystals Tyrosine Crystals Other Crystals Amorphous Sediment Urine Bacteria Epithelial Casts (Auto) Fatty Casts Hyaline Casts Granular Casts (Auto) Waxy Casts Broad Casts RBC Casts WBC Casts Other Casts Urine Trichomonas Ur Yeast w Hyphae Urine Yeast (Budding) Urine Sperm (Auto) Ur Oval Fat Bodies Auto 09/23/16 09/23/16 07:58 11:56 WBC RBC Hgb Hct MCV MCH MCHC RDW Plt Count MPV Neut % (Auto) Lymph % (Auto) [place] % (Auto) Eos % (Auto) Baso % (Auto) Neut # Lymph # [place] # Eos # Baso # Neutrophils % (Manual) Band Neutrophils % Lymphocytes % (Manual) Monocytes % (Manual) Platelet Estimate Hypochromasia (manual) Anisocytosis (manual) Ovalocytes [place] Cells Sodium Potassium Chloride Carbon Dioxide Anion Gap BUN Creatinine Est GFR ( Amer) Est GFR (Non-Af Amer) POC Glucose (mg/dL) 96 318 H Random Glucose Lactic Acid Calcium Phosphorus Magnesium Total Bilirubin AST ALT Alkaline Phosphatase Total Protein Albumin Globulin Albumin/Globulin Ratio Urine Color Urine Clarity Urine pH Ur Specific [place] Urine Protein Urine Glucose (UA) Urine Ketones Urine Blood Urine Nitrate Urine Bilirubin Urine Urobilinogen Ur Leukocyte Esterase Urine WBC (Auto) Urine RBC (Auto) Urine WBC Clumps (Auto) Ur Squamous Epith Cells Ur Transition Epith Cell Ur Renal Epithelial Cell Calcium Carbonate Cryst Calcium Phos Jannette (Auto) Calcium Oxalate Crystal Leucine Crystals Cystine Crystals Uric Acid Crystals Triple Phos Crystals Tyrosine Crystals Other Crystals Amorphous Sediment Urine Bacteria Epithelial Casts (Auto) Fatty Casts Hyaline Casts Granular Casts (Auto) Waxy Casts Broad Casts RBC Casts WBC Casts Other Casts Urine Trichomonas Ur Yeast w Hyphae Urine Yeast (Budding) Urine Sperm (Auto) Ur Oval Fat Bodies Auto
[2016-09-23] MEDS ORDERED: Sodium Chloride 0.9% 1,000 ML IV SCH (16:30)
[2016-09-23] MEDS ORDERED: Vancomycin 1 gm/NS 200 ml 1 GM/200 ML BAG IVPB SCH (22:00)
[2016-09-23] MEDS: Vancomycin 1 gm/NS 200 ml 1 GM/200 ML BAG IVPB SCH ×2 (23:20→23:21)
[2016-09-23] MEDS: Potassium & Sodium Phosphate PO SCH (23:24)
[2016-09-24 00:49] LABS: CHLORIDE 102 mmol/L (98-107); SODIUM 132 mmol/L (132-148)
[2016-09-24 00:50] LABS: POTASSIUM 4.5 mmol/L (3.6-5.2)
[2016-09-24 00:52] LABS: CARBON DIOXIDE 14 mmol/L (22-30); GFR AFRICAN-AMERICAN > 60
[2016-09-24 00:53] LABS: BLOOD UREA NITROGEN 11 mg/dL (9-20); GLUCOSE,RANDOM 257 mg/dL (75-110); MAGNESIUM 2.1 mg/dL (1.6-2.3)
[2016-09-24] MEDS: Potassium & Sodium Phosphate PO SCH ×3 (05:18→22:56)
[2016-09-24 05:34] LABS: VENOUS BLOOD GAS BASE EXCESS -7.4 mmol/L (0.0-2.0); VENOUS BLOOD GAS PCO2 36 mmHg (40-60); VENOUS BLOOD PH 7.31 (7.32-7.43)
[2016-09-24 06:38] LABS: BASO % 0.1 % (0.0-2.0); EOS % 0.1 % (0.0-4.0); HEMATOCRIT 31.4 % (35.0-51.0); LYMPH # 0.6 K/uL (1.0-4.3); LYMPH % 3.3 % (20.0-40.0); MEAN CELL VOLUME 79.1 fL (80.0-94.0); MEAN CORPUSCULAR HEMOGLOBIN 25.4 pg (27.0-31.0); MEAN CORPUSCULAR HGB CONC 32.2 g/dL (33.0-37.0); MEAN PLATELET VOLUME 9.6 fL (7.2-11.7); MONO # 1.4 K/uL (0.0-0.8); MONO % 7.4 % (0.0-10.0); PLATELET COUNT 95 K/uL (130-400); RED CELL DISTRIBUTION WIDTH 16.8 % (11.5-14.5); WHITE BLOOD COUNT 18.8 K/uL (4.8-10.8)
[2016-09-24 06:45] LABS: CHLORIDE 99 mmol/L (98-107); POTASSIUM 4.5 mmol/L (3.6-5.2); SODIUM 129 mmol/L (132-148)
[2016-09-24] MEDS ORDERED: SODIUM BICARBONATE IV SCH (06:45)
[2016-09-24] MEDS ORDERED: WATER IV SCH (06:45)
[2016-09-24] MEDS ORDERED: DEXTROSE IV SCH (06:45)
[2016-09-24 06:47] LABS: AST/SGOT 26 U/L (17-59); BILIRUBIN,TOTAL 0.5 mg/dL (0.2-1.3); CARBON DIOXIDE 19 mmol/L (22-30); GFR AFRICAN-AMERICAN > 60
[2016-09-24 06:48] LABS: ALKALINE PHOSPHATASE 53 U/L (38-126); ALT/SGPT 20 U/L (21-72); BLOOD UREA NITROGEN 12 mg/dL (9-20); CALCIUM 7.9 mg/dl (8.6-10.4); GLUCOSE,RANDOM 206 mg/dL (75-110); PHOSPHOROUS 2.3 mg/dL (2.5-4.5); TOTAL PROTEIN 6.2 g/dL (6.3-8.3)
[2016-09-24] MEDS ORDERED: Sodium Bicarbonate 8.4% 100 MEQ in Dextrose 5% In Water 900 ML IV SCH (07:45)
[2016-09-24 08:41] LABS: NEUTROPHIL 78 % (50-75); TOTAL CELLS COUNTED 100
[2016-09-24 08:42] LABS: LARGE PLATELETS PRESENT
[2016-09-24] MEDS: (Novolin R) Insulin Human Regular 100 units/ml vial SC SCH ×4 (08:57→22:56)
[2016-09-24] MEDS ORDERED: Vancomycin 1 gm/NS 200 ml 1 GM/200 ML BAG IVPB SCH (09:00)
[2016-09-24] MEDS: Enoxaparin 40 mg Syringe SC SCH (09:00)
[2016-09-24] MEDS: Vancomycin 1 gm/NS 200 ml 1 GM/200 ML BAG IVPB SCH (09:01)
--- NOTE | 2016-09-24 09:11 | CP.CCUPN ---
<Eliseo Lucas - Last Filed: 09/24/16 14:12> CCU Subjective - Physician Review Subjective (Free Text): 09/24/16 09:11 Pt seen and examined at bedside. Pt reports no complaints at this time. He denies any difficulty urinating, dysuria, urinary frequency, or hematuria. Pt tolerating diet and moving bowels without difficulty. Critical Care Time Spent (in minutes): 40 CCU Objective - Vital Signs / Intake & Output Vital Signs (Last 4 hours): Vital Signs Temp Pulse Resp BP Pulse Ox 09/24/16 08:00 97.6 F 72 18 100 09/24/16 07:02 71 26 H 124/58 L 100 09/24/16 06:34 69 17 09/24/16 06:01 115/65 09/24/16 05:59 73 19 100 Intake and Output (Last 8hrs): Intake & Output 09/23/16 09/24/16 09/24/16 22:59 06:59 14:59 Intake Total 1400 1161 400 Output Total 1600 500 350 Balance -200 661 50 Weight 131 lb Intake: Intake, IV Amount 800 850 100 Right Forearm 800 850 100 Oral 600 311 300 Output: Urine 1600 500 0 Urine, Voided 1600 500 0 Stool 0 0 Urine/Stool Mix 350 Other: # Voids Urine, Voided 1 # Bowel Movements 1 1 1 - Physical Exam Physical Exam Limitations: Negative for: Altered Mental Status Head: Positive for: Atraumatic, Normocephalic Pupils: Positive for: PERRL Extroacular Muscles: Positive for: EOMI Conjunctiva: Positive for: Normal Mouth: Positive for: Moist Mucous Membranes Neck: Negative for: JVD Respiratory/Chest: Positive for: Clear to Auscultation, Good Air Exchange. Negative for: Respiratory Distress, Accessory Muscle Use, Wheezes Cardiovascular: Positive for: Regular Rate and Rhythm Abdomen: Positive for: Tenderness (slight suprapubic), Normal Bowel Sounds. Negative for: Distention Upper Extremity: Positive for: Normal Inspection. Negative for: Cyanosis Lower Extremity: Positive for: Normal Inspection, NORMAL PULSES. Negative for: Edema Neurological: Positive for: GCS=15, CN II-XII Intact, Speech Normal Skin: Positive for: Warm, Dry Psychiatric: Positive for: Alert, Oriented x 3, Normal Insight, Normal Concentration. Negative for: Anxious - Medications Active Medications: Active Medications Generic Name Dose Route Start Last Admin Trade Name Freq PRN Reason Stop Dose Admin Albuterol/Ipratropium 3 ml 09/23/16 10:35 09/23/16 13:47 Duoneb 3 Mg/0.5 Mg (3 Ml) Ud INH 3 ml RQ6 PRN Administration Shortness of Breath Enoxaparin Sodium 40 mg 09/23/16 10:00 09/24/16 09:00 Lovenox SC 40 mg DAILY TISH Administration Famotidine 20 mg 09/23/16 10:00 09/24/16 09:00 Pepcid PO 20 mg BID TISH Administration Imipenem/Cilastatin Sodium 500 100 mls @ 100 mls/hr 09/23/16 10:30 09/24/16 05:18 mg/ Sodium Chloride IVPB 100 mls/hr Q6H TISH Administration Vancomycin/Sodium Chloride 1 gm in 200 mls @ 133.333 mls/hr 09/23/16 22:00 09:01 Vancocin IVPB 09/28/16 22:01 133.333 mls/hr Q12H TISH Administration Sodium Bicarbonate 100 meq/ 1,000 mls @ 100 mls/hr 09/24/16 07:45 Dextrose IV .Q10H TISH Insulin Human Regular 0 unit 09/23/16 16:19 09/24/16 08:57 Novolin R SC 3 unit ACHS TISH Administration Protocol Potassium Phos/Sodium Phos 1 pkt 09/23/16 21:00 09/24/16 05:18 Neutra-Phos PO 1 pkt Q8H TISH Administration Tamsulosin HCl 0.4 mg 09/23/16 10:00 09/24/16 09:00 Flomax PO 0.4 mg DAILY TISH Administration - Patient Studies Lab Studies: Lab Studies 09/24/16 09/24/16 09/24/16 Range/Units 07:48 06:29 06:29 WBC 18.8 H D (4.8-10.8) K/uL RBC 3.97 L (4.40-5.90) Mil/uL Hgb 10.1 L (12.0-18.0) g/dL Hct 31.4 L (35.0-51.0) % MCV 79.1 L (80.0-94.0) fL MCH 25.4 L (27.0-31.0) pg MCHC 32.2 L (33.0-37.0) g/dL RDW 16.8 H (11.5-14.5) % Plt Count 95 L (130-400) K/uL MPV 9.6 (7.2-11.7) fL Neut % (Auto) 89.1 H (50.0-75.0) % Lymph % (Auto) 3.3 L (20.0-40.0) % [place] % (Auto) 7.4 (0.0-10.0) % Eos % (Auto) 0.1 (0.0-4.0) % Baso % (Auto) 0.1 (0.0-2.0) % Neut # 16.8 H (1.8-7.0) K/uL Lymph # 0.6 L (1.0-4.3) K/uL [place] # 1.4 H (0.0-0.8) K/uL Eos # 0.0 (0.0-0.7) K/uL Baso # 0.0 (0.0-0.2) K/uL Neutrophils % (Manual) 78 H (50-75) % Band Neutrophils % 15 H* (0-2) % Lymphocytes % (Manual) 1 L (20-40) % Monocytes % (Manual) 6 (0-10) % Platelet Estimate Decreased L (NORMAL) Large Platelets Present Hypochromasia (manual) Slight Poikilocytosis (manual Slight Anisocytosis (manual) Slight Ovalocytes Slight [place] Cells Slight pO2 (30-55) mm/Hg VBG pH (7.32-7.43) VBG pCO2 (40-60) mmHg VBG HCO3 mmol/L VBG Total CO2 (22-28) mmol/L VBG O2 Sat (Calc) (40-65) % VBG Base Excess (0.0-2.0) mmol/L VBG Potassium (3.6-5.2) mmol/L Glucose (75-110) mg/dl Lactate (0.7-2.1) mmol/L Sodium 129 L (132-148) mmol/L Potassium 4.5 (3.6-5.2) mmol/L Chloride 99 (98-107) mmol/L Carbon Dioxide 19 L (22-30) mmol/L Anion Gap 16 (10-20) BUN 12 (9-20) mg/dL Creatinine 0.7 L (0.8-1.5) MG/DL Est GFR ( Amer) > 60 Est GFR (Non-Af Amer) > 60 POC Glucose (mg/dL) 231 H (65-110) mg/dL Random Glucose 206 H (75-110) mg/dL Calcium 7.9 L (8.6-10.4) mg/dl Phosphorus 2.3 L (2.5-4.5) mg/dL Magnesium 2.0 (1.6-2.3) mg/dL Total Bilirubin 0.5 (0.2-1.3) mg/dL AST 26 (17-59) U/L ALT 20 L (21-72) U/L Alkaline Phosphatase 53 (38-126) U/L Total Protein 6.2 L (6.3-8.3) g/dL Albumin 3.1 L (3.5-5.0) g/dL Globulin 3.1 (2.2-3.9) gm/dL Albumin/Globulin Ratio 1.0 (1.0-2.1) Venous Blood Potassium (3.6-5.2) mmol/L 09/24/16 09/24/16 09/23/16 Range/Units 05:11 00:37 20:50 WBC (4.8-10.8) K/uL RBC (4.40-5.90) Mil/uL Hgb (12.0-18.0) g/dL Hct (35.0-51.0) % MCV (80.0-94.0) fL MCH (27.0-31.0) pg MCHC (33.0-37.0) g/dL RDW (11.5-14.5) % Plt Count (130-400) K/uL MPV (7.2-11.7) fL Neut % (Auto) (50.0-75.0) % Lymph % (Auto) (20.0-40.0) % [place] % (Auto) (0.0-10.0) % Eos % (Auto) (0.0-4.0) % Baso % (Auto) (0.0-2.0) % Neut # (1.8-7.0) K/uL Lymph # (1.0-4.3) K/uL [place] # (0.0-0.8) K/uL Eos # (0.0-0.7) K/uL Baso # (0.0-0.2) K/uL Neutrophils % (Manual) (50-75) % Band Neutrophils % (0-2) % Lymphocytes % (Manual) (20-40) % Monocytes % (Manual) (0-10) % Platelet Estimate (NORMAL) Large Platelets Hypochromasia (manual) Poikilocytosis (manual Anisocytosis (manual) Ovalocytes Epifanio Cells pO2 28 L (30-55) mm/Hg VBG pH 7.31 L (7.32-7.43) VBG pCO2 36 L (40-60) mmHg VBG HCO3 17.7 mmol/L VBG Total CO2 19.2 L (22-28) mmol/L VBG O2 Sat (Calc) 57.7 (40-65) % VBG Base Excess -7.4 L (0.0-2.0) mmol/L VBG Potassium 4.3 (3.6-5.2) mmol/L Glucose 214 H (75-110) mg/dl Lactate 3.2 H (0.7-2.1) mmol/L Sodium 131.0 L 132 (132-148) mmol/L Potassium 4.5 (3.6-5.2) mmol/L Chloride 105.0 102 (98-107) mmol/L Carbon Dioxide 14 L (22-30) mmol/L Anion Gap 21 H (10-20) BUN 11 (9-20) mg/dL Creatinine 0.7 L (0.8-1.5) MG/DL Est GFR ( Amer) > 60 Est GFR (Non-Af Amer) > 60 POC Glucose (mg/dL) 316 H (65-110) mg/dL Random Glucose 257 H (75-110) mg/dL Calcium 8.0 L (8.6-10.4) mg/dl Phosphorus (2.5-4.5) mg/dL Magnesium 2.1 (1.6-2.3) mg/dL Total Bilirubin (0.2-1.3) mg/dL AST (17-59) U/L ALT (21-72) U/L Alkaline Phosphatase (38-126) U/L Total Protein (6.3-8.3) g/dL Albumin (3.5-5.0) g/dL Globulin (2.2-3.9) gm/dL Albumin/Globulin Ratio (1.0-2.1) Venous Blood Potassium 4.3 (3.6-5.2) mmol/L 09/23/16 09/23/16 Range/Units 16:13 11:56 WBC (4.8-10.8) K/uL RBC (4.40-5.90) Mil/uL Hgb (12.0-18.0) g/dL Hct (35.0-51.0) % MCV (80.0-94.0) fL MCH (27.0-31.0) pg MCHC (33.0-37.0) g/dL RDW (11.5-14.5) % Plt Count (130-400) K/uL MPV (7.2-11.7) fL Neut % (Auto) (50.0-75.0) % Lymph % (Auto) (20.0-40.0) % [place] % (Auto) (0.0-10.0) % Eos % (Auto) (0.0-4.0) % Baso % (Auto) (0.0-2.0) % Neut # (1.8-7.0) K/uL Lymph # (1.0-4.3) K/uL [place] # (0.0-0.8) K/uL Eos # (0.0-0.7) K/uL Baso # (0.0-0.2) K/uL Neutrophils % (Manual) (50-75) % Band Neutrophils % (0-2) % Lymphocytes % (Manual) (20-40) % Monocytes % (Manual) (0-10) % Platelet Estimate (NORMAL) Large Platelets Hypochromasia (manual) Poikilocytosis (manual Anisocytosis (manual) Ovalocytes [place] Cells pO2 (30-55) mm/Hg VBG pH (7.32-7.43) VBG pCO2 (40-60) mmHg VBG HCO3 mmol/L VBG Total CO2 (22-28) mmol/L VBG O2 Sat (Calc) (40-65) % VBG Base Excess (0.0-2.0) mmol/L VBG Potassium (3.6-5.2) mmol/L Glucose (75-110) mg/dl Lactate (0.7-2.1) mmol/L Sodium (132-148) mmol/L Potassium (3.6-5.2) mmol/L Chloride (98-107) mmol/L Carbon Dioxide (22-30) mmol/L Anion Gap (10-20) BUN (9-20) mg/dL Creatinine (0.8-1.5) MG/DL Est GFR ( Amer) Est GFR (Non-Af Amer) POC Glucose (mg/dL) 404 H* 318 H (65-110) mg/dL Random Glucose (75-110) mg/dL Calcium (8.6-10.4) mg/dl Phosphorus (2.5-4.5) mg/dL Magnesium (1.6-2.3) mg/dL Total Bilirubin (0.2-1.3) mg/dL AST (17-59) U/L ALT (21-72) U/L Alkaline Phosphatase (38-126) U/L Total Protein (6.3-8.3) g/dL Albumin (3.5-5.0) g/dL Globulin (2.2-3.9) gm/dL Albumin/Globulin Ratio (1.0-2.1) Venous Blood Potassium (3.6-5.2) mmol/L Laboratory Results - last 24 hr 09/23/16 09/23/16 09/23/16 11:56 16:13 20:50 WBC RBC Hgb Hct MCV MCH MCHC RDW Plt Count MPV Neut % (Auto) Lymph % (Auto) [place] % (Auto) Eos % (Auto) Baso % (Auto) Neut # Lymph # [place] # Eos # Baso # Neutrophils % (Manual) Band Neutrophils % Lymphocytes % (Manual) Monocytes % (Manual) Platelet Estimate Large Platelets Hypochromasia (manual) Poikilocytosis (manual Anisocytosis (manual) Ovalocytes [place] Cells pO2 VBG pH VBG pCO2 VBG HCO3 VBG Total CO2 VBG O2 Sat (Calc) VBG Base Excess VBG Potassium Glucose Lactate Sodium Potassium Chloride Carbon Dioxide Anion Gap BUN Creatinine Est GFR ( Amer) Est GFR (Non-Af Amer) POC Glucose (mg/dL) 318 H 404 H* 316 H Random Glucose Calcium Phosphorus Magnesium Total Bilirubin AST ALT Alkaline Phosphatase Total Protein Albumin Globulin Albumin/Globulin Ratio Venous Blood Potassium 09/24/16 09/24/16 09/24/16 00:37 05:11 06:29 WBC 18.8 H D RBC 3.97 L Hgb 10.1 L Hct 31.4 L MCV 79.1 L MCH 25.4 L MCHC 32.2 L RDW 16.8 H Plt Count 95 L MPV 9.6 Neut % (Auto) 89.1 H Lymph % (Auto) 3.3 L [place] % (Auto) 7.4 Eos % (Auto) 0.1 Baso % (Auto) 0.1 Neut # 16.8 H Lymph # 0.6 L [place] # 1.4 H Eos # 0.0 Baso # 0.0 Neutrophils % (Manual) 78 H Band Neutrophils % 15 H* Lymphocytes % (Manual) 1 L Monocytes % (Manual) 6 Platelet Estimate Decreased L Large Platelets Present Hypochromasia (manual) Slight Poikilocytosis (manual Slight Anisocytosis (manual) Slight Ovalocytes Slight [place] Cells Slight pO2 28 L VBG pH 7.31 L VBG pCO2 36 L VBG HCO3 17.7 VBG Total CO2 19.2 L VBG O2 Sat (Calc) 57.7 VBG Base Excess -7.4 L VBG Potassium 4.3 Glucose 214 H Lactate 3.2 H Sodium 132 131.0 L Potassium 4.5 Chloride 102 105.0 Carbon Dioxide 14 L Anion Gap 21 H BUN 11 Creatinine 0.7 L Est GFR ( Amer) > 60 Est GFR (Non-Af Amer) > 60 POC Glucose (mg/dL) Random Glucose 257 H Calcium 8.0 L Phosphorus Magnesium 2.1 Total Bilirubin AST ALT Alkaline Phosphatase Total Protein Albumin Globulin Albumin/Globulin Ratio Venous Blood Potassium 4.3 09/24/16 09/24/16 06:29 07:48 WBC RBC Hgb Hct MCV MCH MCHC RDW Plt Count MPV Neut % (Auto) Lymph % (Auto) [place] % (Auto) Eos % (Auto) Baso % (Auto) Neut # Lymph # [place] # Eos # Baso # Neutrophils % (Manual) Band Neutrophils % Lymphocytes % (Manual) Monocytes % (Manual) Platelet Estimate Large Platelets Hypochromasia (manual) Poikilocytosis (manual Anisocytosis (manual) Ovalocytes [place] Cells pO2 VBG pH VBG pCO2 VBG HCO3 VBG Total CO2 VBG O2 Sat (Calc) VBG Base Excess VBG Potassium Glucose Lactate Sodium 129 L Potassium 4.5 Chloride 99 Carbon Dioxide 19 L Anion Gap 16 BUN 12 Creatinine 0.7 L Est GFR ( Amer) > 60 Est GFR (Non-Af Amer) > 60 POC Glucose (mg/dL) 231 H Random Glucose 206 H Calcium 7.9 L Phosphorus 2.3 L Magnesium 2.0 Total Bilirubin 0.5 AST 26 ALT 20 L Alkaline Phosphatase 53 Total Protein 6.2 L Albumin 3.1 L Globulin 3.1 Albumin/Globulin Ratio 1.0 Venous Blood Potassium Fingerstick Blood Sugar Results: 231 Review of Systems - Constitutional Constitutional: absent: Fever, Chills - EENT Eyes: absent: Change in Vision Ears: absent: Decreased Hearing - Cardiovascular Cardiovascular: absent: Chest Pain, Chest Pain at Rest, Dyspnea, Dyspnea on Exertion, Edema - Respiratory Respiratory: absent: Cough, Dyspnea, Dyspnea on Exertion - Gastrointestinal Gastrointestinal: absent: Abdominal Pain, Nausea, Vomiting - Genitourinary Genitourinary: Freq UTI. absent: Difficulty Urinating, Dysuria, Hematuria, Urinary Frequency - Musculoskeletal Musculoskeletal: absent: Muscle Weakness, Numbness, Tingling - Integumentary Integumentary: absent: Dry Skin, Jaundice - Neurological Neurological: absent: Tingling, Weakness - Psychiatric Psychiatric: absent: Anxiety, Depression - Endocrine Endocrine: absent: Fatigue, Polydipsia, Polyphagia, Polyuria Critical Care Progress Note - Nutrition Nutrition: Nutrition Category Date Time Status Diabetic [Consistent Carbohydrate] [DIET] Diets 09/23/16 Breakfast Active Assessment/Plan - Assessment and Plan (Free Text) Assessment: 71 year old male, with PMHx of urinary retention and hematuria, with recent discharge from [facility] for similar symptoms Plan: Pt status: Transfer to [facility] Neuro: AAOx3 Pulm: Asthma -Duoneb Q6H TISH CV: Hyperlipidemia Simvastatin 20mg PO HS /Renal Sepsis believed secondary to senior living indwelling catheter (pt had shields, on d/c but did not f/u for removal w urology) - Shields catheter discontinued in ER - During previous admission patient had Beta hemolytic group B strep in Urine culture UA (09/23/16): Protein 2+, Blood 2+, LE 3+, WBC 515, RBC 67, Bacteria Occasional Urine culture (09/22/16): Gram negative Raimundo, awaiting sensitivities Received zosyn and Vancomycin in Er Urology consult: Dr. Sanz, roxann appreciated - IV antibiotics - eventually d/c on oral antibiotics, Flomax - f/u in office in 2 weeks Hx of BPH continue home Flomax 0.4mg PO Daily Monitor I/Os - Excellent urine output Hypernatremia - resolved, 132 this AM Hypophosphatemia - Start neutra-phos MSKLTL: Rheumatoid arthritis on meds - pt will bring home Xeljanz XR to verify ENDO:Resolved T2DM BG elevated but downtrending, home meds restarted (09/24) Restart home Metformin 1000mg PO BID, and Glipizide 5mg PO Daily ISS - medium GI: Diabetic Diet AST/ALT/Alk Phos: WNL ID: Sepsis (Criteria: Febrile, Tachy, Tachynpeic on admission) believed secondary to senior living indwelling catheter (pt had shields on discharge, but did not f/u for removal w urology) - Shields catheter removed in ED this admission - During previous admission patient had Beta hemolytic group B strep in Urine culture Lactate: 3.4 on admission, 3.2 today Leukocytosis 18.8 from 8.3 yesterday - Left shift w. bandemia improving UA (09/23/16): Protein 2+, Blood 2+, LE 3+, WBC 515, RBC 67, Bacteria Occasional Urine culture (09/22/16): Gram negative Raimundo, awaiting sensitivities Blood Culture (09/22/16): Gram negative raimundo x1 (Anaerobic bottle only), awaiting sensitivities Received zosyn and Vancomycin in ED ID consult: Dr. Gallardo, roxann appreciated - Primaxin 500mg IV Q6H (start 09/23/16) - Amikacin 500mg IV Q24H (start 09/24/16, 3 doses, end date of 09/26/16) - Vancomycin Discontinued NS @ 150cc/hr Prophylaxis: Pepcid 20mg PO BID Lovenox 40mg SC Daily SCDs <Izabella Gama - Last Filed: 09/24/16 19:02> CCU Objective - Vital Signs / Intake & Output Vital Signs (Last 4 hours): Vital Signs Pulse Resp BP Pulse Ox 09/24/16 18:02 94 H 33 H 157/85 H 09/24/16 17:01 155/83 H 09/24/16 16:02 67 26 H 152/72 H 09/24/16 15:02 60 17 133/101 H 98 Intake and Output (Last 8hrs): Intake & Output 09/24/16 09/24/16 09/24/16 06:59 14:59 22:59 Intake Total 1161 1860 1300 Output Total 500 650 401 Balance 661 1210 899 Weight 131 lb Intake: Intake, IV Amount 850 1260 700 Right Forearm 850 1260 700 Oral 311 600 600 Output: Urine 500 300 400 Urine, Voided 500 300 400 Stool 0 Urine/Stool Mix 350 1 Other: # Voids Urine, Voided 1 1 # Bowel Movements 1 0 0 - Medications Active Medications: Active Medications Generic Name Dose Route Start Last Admin Trade Name Freq PRN Reason Stop Dose Admin Albuterol/Ipratropium 3 ml 09/24/16 14:00 09/24/16 13:26 Duoneb 3 Mg/0.5 Mg (3 Ml) Ud INH 3 ml RQ6 TISH Administration Enoxaparin Sodium 40 mg 09/23/16 10:00 09/24/16 09:00 Lovenox SC 40 mg DAILY TISH Administration Famotidine 20 mg 09/23/16 10:00 09/24/16 17:10 Pepcid PO 20 mg BID TISH Administration Glipizide 5 mg 09/24/16 13:45 09/24/16 15:08 Glucotrol PO 5 mg ACB TISH Administration Imipenem/Cilastatin Sodium 500 100 mls @ 100 mls/hr 09/23/16 10:30 09/24/16 17:11 mg/ Sodium Chloride IVPB 100 mls/hr Q6H TISH Administration Sodium Chloride 1,000 mls @ 150 mls/hr 09/24/16 10:45 09/24/16 17:11 Sodium Chloride 0.9% IV 150 mls/hr .Q6H40M TISH Administration Amikacin Sulfate 500 mg/ 252 mls @ 250 mls/hr 09/24/16 13:00 09/24/16 15:05 Sodium Chloride IVPB 09/26/16 13:01 250 mls/hr Q24H TISH Administration Insulin Human Regular 0 unit 09/23/16 16:19 09/24/16 17:10 Novolin R SC 4 unit ACHS TISH Administration Protocol Metformin HCl 1,000 mg 09/24/16 17:00 09/24/16 18:04 Glucophage PO Not Given BIDCC TISH Potassium Phos/Sodium Phos 1 pkt 09/23/16 21:00 09/24/16 15:05 Neutra-Phos PO 1 pkt Q8H TISH Administration Promethazine HCl 12.5 mg 09/24/16 17:04 09/24/16 17:21 Phenergan Syrup PO 12.5 mg Q6 PRN Administration Cough Rosuvastatin Calcium 5 mg 09/24/16 22:00 Crestor PO HS TISH Tamsulosin HCl 0.4 mg 09/23/16 10:00 09/24/16 09:00 Flomax PO 0.4 mg DAILY TISH Administration - Patient Studies Lab Studies: Microbiology Studies 09/23/16 01:56 MRSA Culture (Admit) - Final Nose MRSA NOT DETECTED Lab Studies 09/24/16 09/24/16 09/24/16 Range/Units 16:25 14:07 14:07 WBC 19.2 H (4.8-10.8) K/uL RBC 3.89 L (4.40-5.90) Mil/uL Hgb 9.8 L (12.0-18.0) g/dL Hct 30.8 L (35.0-51.0) % MCV 79.3 L (80.0-94.0) fL MCH 25.2 L (27.0-31.0) pg MCHC 31.8 L (33.0-37.0) g/dL RDW 16.7 H (11.5-14.5) % Plt Count 100 L (130-400) K/uL MPV 9.4 (7.2-11.7) fL Neut % (Auto) 87.8 H (50.0-75.0) % Lymph % (Auto) 4.6 L (20.0-40.0) % [place] % (Auto) 7.3 (0.0-10.0) % Eos % (Auto) 0.1 (0.0-4.0) % Baso % (Auto) 0.2 (0.0-2.0) % Neut # 16.9 H (1.8-7.0) K/uL Lymph # 0.9 L (1.0-4.3) K/uL [place] # 1.4 H (0.0-0.8) K/uL Eos # 0.0 (0.0-0.7) K/uL Baso # 0.0 (0.0-0.2) K/uL Neutrophils % (Manual) 76 H (50-75) % Band Neutrophils % 14 H* (0-2) % Lymphocytes % (Manual) 2 L (20-40) % Monocytes % (Manual) 7 (0-10) % Myelocytes % 1 H (0-0) % Platelet Estimate Decreased L (NORMAL) Large Platelets Giant Platelets Present Polychromasia Slight Hypochromasia (manual) Slight Poikilocytosis (manual Anisocytosis (manual) Slight Ovalocytes Slight Epifanio Cells Slight pO2 (30-55) mm/Hg VBG pH (7.32-7.43) VBG pCO2 (40-60) mmHg VBG HCO3 mmol/L VBG Total CO2 (22-28) mmol/L VBG O2 Sat (Calc) (40-65) % VBG Base Excess (0.0-2.0) mmol/L VBG Potassium (3.6-5.2) mmol/L Glucose (75-110) mg/dl Lactate (0.7-2.1) mmol/L Sodium 128 L (132-148) mmol/L Potassium 4.4 (3.6-5.2) mmol/L Chloride 98 (98-107) mmol/L Carbon Dioxide 21 L (22-30) mmol/L Anion Gap 13 (10-20) BUN 12 (9-20) mg/dL Creatinine 0.7 L (0.8-1.5) MG/DL Est GFR ( Amer) > 60 Est GFR (Non-Af Amer) > 60 POC Glucose (mg/dL) 276 H (65-110) mg/dL Random Glucose 228 H (75-110) mg/dL Calcium 8.3 L (8.6-10.4) mg/dl Phosphorus 2.2 L (2.5-4.5) mg/dL Magnesium 2.0 (1.6-2.3) mg/dL Total Bilirubin 0.4 (0.2-1.3) mg/dL AST 22 (17-59) U/L ALT 12 L D (21-72) U/L Alkaline Phosphatase 53 (38-126) U/L Total Protein 6.1 L (6.3-8.3) g/dL Albumin 3.2 L (3.5-5.0) g/dL Globulin 3.0 (2.2-3.9) gm/dL Albumin/Globulin Ratio 1.1 (1.0-2.1) Venous Blood Potassium (3.6-5.2) mmol/L 09/24/16 09/24/16 09/24/16 Range/Units 11:26 07:48 06:29 WBC (4.8-10.8) K/uL RBC (4.40-5.90) Mil/uL Hgb (12.0-18.0) g/dL Hct (35.0-51.0) % MCV (80.0-94.0) fL MCH (27.0-31.0) pg MCHC (33.0-37.0) g/dL RDW (11.5-14.5) % Plt Count (130-400) K/uL MPV (7.2-11.7) fL Neut % (Auto) (50.0-75.0) % Lymph % (Auto) (20.0-40.0) % [place] % (Auto) (0.0-10.0) % Eos % (Auto) (0.0-4.0) % Baso % (Auto) (0.0-2.0) % Neut # (1.8-7.0) K/uL Lymph # (1.0-4.3) K/uL [place] # (0.0-0.8) K/uL Eos # (0.0-0.7) K/uL Baso # (0.0-0.2) K/uL Neutrophils % (Manual) (50-75) % Band Neutrophils % (0-2) % Lymphocytes % (Manual) (20-40) % Monocytes % (Manual) (0-10) % Myelocytes % (0-0) % Platelet Estimate (NORMAL) Large Platelets Giant Platelets Polychromasia Hypochromasia (manual) Poikilocytosis (manual Anisocytosis (manual) Ovalocytes [place] Cells pO2 (30-55) mm/Hg VBG pH (7.32-7.43) VBG pCO2 (40-60) mmHg VBG HCO3 mmol/L VBG Total CO2 (22-28) mmol/L VBG O2 Sat (Calc) (40-65) % VBG Base Excess (0.0-2.0) mmol/L VBG Potassium (3.6-5.2) mmol/L Glucose (75-110) mg/dl Lactate (0.7-2.1) mmol/L Sodium 129 L (132-148) mmol/L Potassium 4.5 (3.6-5.2) mmol/L Chloride 99 (98-107) mmol/L Carbon Dioxide 19 L (22-30) mmol/L Anion Gap 16 (10-20) BUN 12 (9-20) mg/dL Creatinine 0.7 L (0.8-1.5) MG/DL Est GFR ( Amer) > 60 Est GFR (Non-Af Amer) > 60 POC Glucose (mg/dL) 292 H 231 H (65-110) mg/dL Random Glucose 206 H (75-110) mg/dL Calcium 7.9 L (8.6-10.4) mg/dl Phosphorus 2.3 L (2.5-4.5) mg/dL Magnesium 2.0 (1.6-2.3) mg/dL Total Bilirubin 0.5 (0.2-1.3) mg/dL AST 26 (17-59) U/L ALT 20 L (21-72) U/L Alkaline Phosphatase 53 (38-126) U/L Total Protein 6.2 L (6.3-8.3) g/dL Albumin 3.1 L (3.5-5.0) g/dL Globulin 3.1 (2.2-3.9) gm/dL Albumin/Globulin Ratio 1.0 (1.0-2.1) Venous Blood Potassium (3.6-5.2) mmol/L 09/24/16 09/24/16 09/24/16 Range/Units 06:29 05:11 00:37 WBC 18.8 H D (4.8-10.8) K/uL RBC 3.97 L (4.40-5.90) Mil/uL Hgb 10.1 L (12.0-18.0) g/dL Hct 31.4 L (35.0-51.0) % MCV 79.1 L (80.0-94.0) fL MCH 25.4 L (27.0-31.0) pg MCHC 32.2 L (33.0-37.0) g/dL RDW 16.8 H (11.5-14.5) % Plt Count 95 L (130-400) K/uL MPV 9.6 (7.2-11.7) fL Neut % (Auto) 89.1 H (50.0-75.0) % Lymph % (Auto) 3.3 L (20.0-40.0) % [place] % (Auto) 7.4 (0.0-10.0) % Eos % (Auto) 0.1 (0.0-4.0) % Baso % (Auto) 0.1 (0.0-2.0) % Neut # 16.8 H (1.8-7.0) K/uL Lymph # 0.6 L (1.0-4.3) K/uL [place] # 1.4 H (0.0-0.8) K/uL Eos # 0.0 (0.0-0.7) K/uL Baso # 0.0 (0.0-0.2) K/uL Neutrophils % (Manual) 78 H (50-75) % Band Neutrophils % 15 H* (0-2) % Lymphocytes % (Manual) 1 L (20-40) % Monocytes % (Manual) 6 (0-10) % Myelocytes % (0-0) % Platelet Estimate Decreased L (NORMAL) Large Platelets Present Giant Platelets Polychromasia Hypochromasia (manual) Slight Poikilocytosis (manual Slight Anisocytosis (manual) Slight Ovalocytes Slight [place] Cells Slight pO2 28 L (30-55) mm/Hg VBG pH 7.31 L (7.32-7.43) VBG pCO2 36 L (40-60) mmHg VBG HCO3 17.7 mmol/L VBG Total CO2 19.2 L (22-28) mmol/L VBG O2 Sat (Calc) 57.7 (40-65) % VBG Base Excess -7.4 L (0.0-2.0) mmol/L VBG Potassium 4.3 (3.6-5.2) mmol/L Glucose 214 H (75-110) mg/dl Lactate 3.2 H (0.7-2.1) mmol/L Sodium 131.0 L 132 (132-148) mmol/L Potassium 4.5 (3.6-5.2) mmol/L Chloride 105.0 102 (98-107) mmol/L Carbon Dioxide 14 L (22-30) mmol/L Anion Gap 21 H (10-20) BUN 11 (9-20) mg/dL Creatinine 0.7 L (0.8-1.5) MG/DL Est GFR ( Amer) > 60 Est GFR (Non-Af Amer) > 60 POC Glucose (mg/dL) (65-110) mg/dL Random Glucose 257 H (75-110) mg/dL Calcium 8.0 L (8.6-10.4) mg/dl Phosphorus (2.5-4.5) mg/dL Magnesium 2.1 (1.6-2.3) mg/dL Total Bilirubin (0.2-1.3) mg/dL AST (17-59) U/L ALT (21-72) U/L Alkaline Phosphatase (38-126) U/L Total Protein (6.3-8.3) g/dL Albumin (3.5-5.0) g/dL Globulin (2.2-3.9) gm/dL Albumin/Globulin Ratio (1.0-2.1) Venous Blood Potassium 4.3 (3.6-5.2) mmol/L 09/23/16 Range/Units 20:50 WBC (4.8-10.8) K/uL RBC (4.40-5.90) Mil/uL Hgb (12.0-18.0) g/dL Hct (35.0-51.0) % MCV (80.0-94.0) fL MCH (27.0-31.0) pg MCHC (33.0-37.0) g/dL RDW (11.5-14.5) % Plt Count (130-400) K/uL MPV (7.2-11.7) fL Neut % (Auto) (50.0-75.0) % Lymph % (Auto) (20.0-40.0) % [place] % (Auto) (0.0-10.0) % Eos % (Auto) (0.0-4.0) % Baso % (Auto) (0.0-2.0) % Neut # (1.8-7.0) K/uL Lymph # (1.0-4.3) K/uL [place] # (0.0-0.8) K/uL Eos # (0.0-0.7) K/uL Baso # (0.0-0.2) K/uL Neutrophils % (Manual) (50-75) % Band Neutrophils % (0-2) % Lymphocytes % (Manual) (20-40) % Monocytes % (Manual) (0-10) % Myelocytes % (0-0) % Platelet Estimate (NORMAL) Large Platelets Giant Platelets Polychromasia Hypochromasia (manual) Poikilocytosis (manual Anisocytosis (manual) Ovalocytes [place] Cells pO2 (30-55) mm/Hg VBG pH (7.32-7.43) VBG pCO2 (40-60) mmHg VBG HCO3 mmol/L VBG Total CO2 (22-28) mmol/L VBG O2 Sat (Calc) (40-65) % VBG Base Excess (0.0-2.0) mmol/L VBG Potassium (3.6-5.2) mmol/L Glucose (75-110) mg/dl Lactate (0.7-2.1) mmol/L Sodium (132-148) mmol/L Potassium (3.6-5.2) mmol/L Chloride (98-107) mmol/L Carbon Dioxide (22-30) mmol/L Anion Gap (10-20) BUN (9-20) mg/dL Creatinine (0.8-1.5) MG/DL Est GFR ( Amer) Est GFR (Non-Af Amer) POC Glucose (mg/dL) 316 H (65-110) mg/dL Random Glucose (75-110) mg/dL Calcium (8.6-10.4) mg/dl Phosphorus (2.5-4.5) mg/dL Magnesium (1.6-2.3) mg/dL Total Bilirubin (0.2-1.3) mg/dL AST (17-59) U/L ALT (21-72) U/L Alkaline Phosphatase (38-126) U/L Total Protein (6.3-8.3) g/dL Albumin (3.5-5.0) g/dL Globulin (2.2-3.9) gm/dL Albumin/Globulin Ratio (1.0-2.1) Venous Blood Potassium (3.6-5.2) mmol/L Laboratory Results - last 24 hr 09/23/16 09/24/16 09/24/16 20:50 00:37 05:11 WBC RBC Hgb Hct MCV MCH MCHC RDW Plt Count MPV Neut % (Auto) Lymph % (Auto) [place] % (Auto) Eos % (Auto) Baso % (Auto) Neut # Lymph # [place] # Eos # Baso # Neutrophils % (Manual) Band Neutrophils % Lymphocytes % (Manual) Monocytes % (Manual) Myelocytes % Platelet Estimate Large Platelets Giant Platelets Polychromasia Hypochromasia (manual) Poikilocytosis (manual Anisocytosis (manual) Ovalocytes [place] Cells pO2 28 L VBG pH 7.31 L VBG pCO2 36 L VBG HCO3 17.7 VBG Total CO2 19.2 L VBG O2 Sat (Calc) 57.7 VBG Base Excess -7.4 L VBG Potassium 4.3 Glucose 214 H Lactate 3.2 H Sodium 132 131.0 L Potassium 4.5 Chloride 102 105.0 Carbon Dioxide 14 L Anion Gap 21 H BUN 11 Creatinine 0.7 L Est GFR ( Amer) > 60 Est GFR (Non-Af Amer) > 60 POC Glucose (mg/dL) 316 H Random Glucose 257 H Calcium 8.0 L Phosphorus Magnesium 2.1 Total Bilirubin AST ALT Alkaline Phosphatase Total Protein Albumin Globulin Albumin/Globulin Ratio Venous Blood Potassium 4.3 09/24/16 09/24/16 09/24/16 06:29 06:29 07:48 WBC 18.8 H D RBC 3.97 L Hgb 10.1 L Hct 31.4 L MCV 79.1 L MCH 25.4 L MCHC 32.2 L RDW 16.8 H Plt Count 95 L MPV 9.6 Neut % (Auto) 89.1 H Lymph % (Auto) 3.3 L [place] % (Auto) 7.4 Eos % (Auto) 0.1 Baso % (Auto) 0.1 Neut # 16.8 H Lymph # 0.6 L [place] # 1.4 H Eos # 0.0 Baso # 0.0 Neutrophils % (Manual) 78 H Band Neutrophils % 15 H* Lymphocytes % (Manual) 1 L Monocytes % (Manual) 6 Myelocytes % Platelet Estimate Decreased L Large Platelets Present Giant Platelets Polychromasia Hypochromasia (manual) Slight Poikilocytosis (manual Slight Anisocytosis (manual) Slight Ovalocytes Slight [place] Cells Slight pO2 VBG pH VBG pCO2 VBG HCO3 VBG Total CO2 VBG O2 Sat (Calc) VBG Base Excess VBG Potassium Glucose Lactate Sodium 129 L Potassium 4.5 Chloride 99 Carbon Dioxide 19 L Anion Gap 16 BUN 12 Creatinine 0.7 L Est GFR ( Amer) > 60 Est GFR (Non-Af Amer) > 60 POC Glucose (mg/dL) 231 H Random Glucose 206 H Calcium 7.9 L Phosphorus 2.3 L Magnesium 2.0 Total Bilirubin 0.5 AST 26 ALT 20 L Alkaline Phosphatase 53 Total Protein 6.2 L Albumin 3.1 L Globulin 3.1 Albumin/Globulin Ratio 1.0 Venous Blood Potassium 09/24/16 09/24/16 09/24/16 11:26 14:07 14:07 WBC 19.2 H RBC 3.89 L Hgb 9.8 L Hct 30.8 L MCV 79.3 L MCH 25.2 L MCHC 31.8 L RDW 16.7 H Plt Count 100 L MPV 9.4 Neut % (Auto) 87.8 H Lymph % (Auto) 4.6 L [place] % (Auto) 7.3 Eos % (Auto) 0.1 Baso % (Auto) 0.2 Neut # 16.9 H Lymph # 0.9 L [place] # 1.4 H Eos # 0.0 Baso # 0.0 Neutrophils % (Manual) 76 H Band Neutrophils % 14 H* Lymphocytes % (Manual) 2 L Monocytes % (Manual) 7 Myelocytes % 1 H Platelet Estimate Decreased L Large Platelets Giant Platelets Present Polychromasia Slight Hypochromasia (manual) Slight Poikilocytosis (manual Anisocytosis (manual) Slight Ovalocytes Slight [place]ifanio Cells Slight pO2 VBG pH VBG pCO2 VBG HCO3 VBG Total CO2 VBG O2 Sat (Calc) VBG Base Excess VBG Potassium Glucose Lactate Sodium 128 L Potassium 4.4 Chloride 98 Carbon Dioxide 21 L Anion Gap 13 BUN 12 Creatinine 0.7 L Est GFR ( Amer) > 60 Est GFR (Non-Af Amer) > 60 POC Glucose (mg/dL) 292 H Random Glucose 228 H Calcium 8.3 L Phosphorus 2.2 L Magnesium 2.0 Total Bilirubin 0.4 AST 22 ALT 12 L D Alkaline Phosphatase 53 Total Protein 6.1 L Albumin 3.2 L Globulin 3.0 Albumin/Globulin Ratio 1.1 Venous Blood Potassium 09/24/16 16:25 WBC RBC Hgb Hct MCV MCH MCHC RDW Plt Count MPV Neut % (Auto) Lymph % (Auto) [place] % (Auto) Eos % (Auto) Baso % (Auto) Neut # Lymph # [place] # Eos # Baso # Neutrophils % (Manual) Band Neutrophils % Lymphocytes % (Manual) Monocytes % (Manual) Myelocytes % Platelet Estimate Large Platelets Giant Platelets Polychromasia Hypochromasia (manual) Poikilocytosis (manual Anisocytosis (manual) Ovalocytes Epifanio Cells pO2 VBG pH VBG pCO2 VBG HCO3 VBG Total CO2 VBG O2 Sat (Calc) VBG Base Excess VBG Potassium Glucose Lactate Sodium Potassium Chloride Carbon Dioxide Anion Gap BUN Creatinine Est GFR ( Amer) Est GFR (Non-Af Amer) POC Glucose (mg/dL) 276 H Random Glucose Calcium Phosphorus Magnesium Total Bilirubin AST ALT Alkaline Phosphatase Total Protein Albumin Globulin Albumin/Globulin Ratio Venous Blood Potassium Critical Care Progress Note - Nutrition Nutrition: Nutrition Category Date Time Status Diabetic [Consistent Carbohydrate] [DIET] Diets 09/23/16 Breakfast Active Attending/Attestation - Attestation I have personally seen and examined this patient.: Yes I have fully participated in the care of the patient.: Yes I have reviewed all pertinent clinical information: Yes Notes (Text): 09/24/16 19:02 discussed during rounds plan discussed agree with notes
--- NOTE | 2016-09-24 10:43 | CON ---
DATE: 09/24/2016 BRIEF HISTORY: The patient is a 71-year-old male from [facility] who had a prior 6-month history of BPH and was previously on Flomax with a good response, who originally presented to [facility] Emerge ncy Room in early 08/2016 in acute urinary retention requiring Garrett catheterization. However, durin g the Garrett catheterization in the Emergency Room, the patient, after the Garrett catheter was inserted which drained ursula urine well, eventually developed gross hematuria, probably secondary to sudden d ecompression of the bladder with the Garrett catheter. The Garrett catheter was removed and a 3-way Fole y catheter was inserted and the patient was placed on continuous bladder irrigation which cleared the gross hematuria almost immediately. The patient was found to have a urinary tract infection during his hospitalization and was treated with IV Zosyn and was also placed back on the Flomax and finaster alok - Flomax 0.4 mg and finasteride 5 mg daily - for treatment of BPH and acute urinary retention. T he patient was eventually discharged home on oral antibiotics which may have included Augmentin and h is Flomax. The patient states he did not take finasteride at home for treatment of BPH. The patient currently came to [facility] Emergency Room with urosepsis, hypoglycemia, hyponatremia and low blood pressure, and was admitted to the ICU. His Garrett catheter was removed in the ER and the patien t started voiding ursula urine without any complaints. The patient was restarted on his Flomax during this hospital stay at 0.4 mg daily, so far with a good response. The patient's condition is slowly improving in the ICU at this time. He also had some wheezing and some difficulty [facility] PAST SURGICAL HISTORY: Only that of an appendectomy 30 years ago. PAST MEDICAL HISTORY: Includes diabetes mellitus and asthma. SOCIAL HISTORY: He is a nonsmoker. No history of any alcohol use. ALLERGIES: He has no known allergies to any medication. PHYSICAL EXAMINATION: GENERAL: The patient is a well-developed, well-nourished male. He is alert, oriented, sitting in a chair comfortably at this time. ABDOMEN: Soft, not distended or tender. No CVA tenderness. No suprapubic tenderness. RECTAL: Normal rectal tone without fluctuance or masses. Prostate is slightly enlarged, smooth, sym metrical, nontender, without nodules or indurations, with a palpable median sulcus VITAL SIGNS: Today, 09/24/2016, shows a temperature of 97.6 orally. Pulse is 72, respiration rate i s 18, and O2 on nasal cannula is 100%. LABORATORY EVALUATION: Today his WBC is 18.8, his hemoglobin is 10.1 and his hematocrit is 31.4 with a platelet count of 95,000 which is low indicating thrombocytopenia. His chem profile shows a sodiu m of 129 which is still low. His potassium is 4.5, chloride 99, CO2 19. BUN and creatinine of 12 an d 0.7 respectively with a GFR of greater than 60, and his Garrett catheter has been out for at least 24 hours. A random glucose was 231, and a followup glucose was 206. Calcium is 7.9. AST was 26, ALT was 20. Phosphorus was 2.3 and magnesium was 2.0. His blood cultures were positive for gram-negativ e rods and the urine culture was also positive for gram-negative rods on 09/22/2016. The patient is currently on imipenem and vancomycin IV antibiotics. DIAGNOSTIC IMPRESSION: 1. Urosepsis. 2. Benign prostatic hypertrophy. PLAN: Just to continue the patient on his IV antibiotics pending sensitivities from the urine cultur es, and then eventually to be discharged home on his oral antibiotic as defined by the urine culture and sensitivities. The patient also is to be discharged home on his Flomax 0.4 mg daily for treatmen t of BPH. The patient will be seen in office followup in about 2 weeks. Hubert Sanz MD cc: [phone] TT: 09/24/2016 10:42:29 Confirmation # [id number] Dictation # [id number] gonzález
[2016-09-24] MEDS: Sodium Chloride 0.9% 1,000 ML IV SCH ×2 (11:16→17:11)
--- NOTE | 2016-09-24 12:59 | CP.PCM.PN ---
Subjective - Date & Time of Evaluation Date of Evaluation: 09/24/16 Time of Evaluation: 12:59 - Subjective Subjective: CHIEF COMPLAINTS TODAY : AFEBRILE, VS NOTED C/O LOWER ABD. DISCOMFORT URINE CAL COLORED SEEN BY 09/24/16-recommendations noted ROS. HEENT : N. Resp : No cough,pleuritic CP ,or hemoptysis Cardio : No anginal CP, PND, orthopnea, palpitation GI : +VE SUPRAPUBIC abd.pain, NO n/v ,diarrhea or GI bleeding . C 40A CREW CHIEF : No headache, vertigo, focal deficit. Musculoskel : No joint swelling , Derm : No rash Psych : Normal affect. Ext : No swelling ,calf pain PE. Pt. is alert awake in no distress. V.S As noted in the chart Head ,ear nose,throat and eyes : Normal. Neck : Supple with normal carotids. Lungs: Clear air entry. Heart : S1 & S2 normal with S4. No murmur. Abd : Soft non tender with normal bowel sounds. TENDER SUPRAPUBIC Neuro : Moves all ext. with no localized deficit. Ext : No edema with intact pulses.Non tender calves Derm : No rashes or decubitus ulcer. LABS/RADIOLOGY: blood cultures GRAM-NEGATIVE [id number]. Urine culture GNR -P wbc 18.8 cREATININE 0.7/bun 12 NA 129-IMPROVING. LFTS -OK Objective - Vital Signs/Intake and Output Vital Signs (last 24 hours): Temp Pulse Resp BP Pulse Ox 97.6 F 72 18 124/58 L 100 09/24/16 08:00 09/24/16 08:00 09/24/16 08:00 09/24/16 07:02 09/24/16 08:00 Intake and Output: 09/24/16 09/24/16 06:59 18:59 Intake Total 1761 400 Output Total 1300 350 Balance 461 50 - Medications Medications: Current Medications Albuterol/Ipratropium (Duoneb 3 Mg/0.5 Mg (3 Ml) Ud) 3 ml INH RQ6 [facility] Enoxaparin Sodium (Lovenox) 40 mg SC DAILY [facility] Last Admin: 09/24/16 09:00 Dose: 40 mg Famotidine (Pepcid) 20 mg PO BID [facility] Last Admin: 09/24/16 09:00 Dose: 20 mg Imipenem/Cilastatin Sodium 500 (mg/ Sodium Chloride) 100 mls @ 100 mls/hr IVPB Q6H [facility] Last Admin: 09/24/16 09:57 Dose: 100 mls/hr Sodium Chloride (Sodium Chloride 0.9%) 1,000 mls @ 150 mls/hr IV .Q6H40M [facility] Last Admin: 09/24/16 11:16 Dose: 150 mls/hr Amikacin Sulfate 500 mg/ (Sodium Chloride) 252 mls @ 250 mls/hr IVPB Q24H [facility] Stop: 09/26/16 13:01 Insulin Human Regular (Novolin R) 0 unit SC ACHS [facility] PRN Reason: Protocol Last Admin: 09/24/16 11:32 Dose: 4 unit Potassium Phos/Sodium Phos (Neutra-Phos) 1 pkt PO Q8H [facility] Last Admin: 09/24/16 05:18 Dose: 1 pkt Tamsulosin HCl (Flomax) 0.4 mg PO DAILY [facility] Last Admin: 09/24/16 09:00 Dose: 0.4 mg - Labs Labs: 09/24/16 06:29 09/24/16 06:29 PT 15.6 SECONDS (9.7-12.2) H 09/22/16 23:14 INR 1.4 09/22/16 23:14 APTT 26 SECONDS (21-34) 09/22/16 23:14 Assessment and Plan (1) Sepsis Status: Acute (2) Fever Status: Acute (3) UTI (urinary tract infection) Status: Acute (4) Hyponatremia Status: Acute (5) Diabetes mellitus Status: Acute (6) Rheumatoid arthritis Status: Acute - Assessment and Plan (Free Text) Assessment: IMPRESSION; -GRAM-NEGATIVE SEPSIS -UROSEPSIS -HYPONATREMIA. -DIABETES MELLITUS-2 -RHEUMATOID ARTHRITIS. PLAN ; DC IV VANCOMYCIN. cONTINUE iv PRIMAXIN 500 MG EVERY 6 HOURLY. 09/23/16 START iv AMIKACIN 500 MG EVERY 24 HOURLY 09/24/16 X 2 DAYS FOLLOW-UP CULTURES TO ADJUST ANTIBIOTICS. F/U RENAL FUNCTIONS CLOSELY. iv FLUIDS PER [employer]/PMD. CASE DISCUSSED WITH THE STAFF/PMD.
[2016-09-24] MEDS: Albuterol-Ipratrop 3 mg / 0.5 (3 ml) UD INH SCH ×2 (13:26→19:50)
--- NOTE | 2016-09-24 13:44 | CP.PCM.PN ---
Subjective - Date & Time of Evaluation Date of Evaluation: 09/24/16 Time of Evaluation: 13:42 - Subjective Subjective: CHIEF COMPLAINTS TODAY : LOWER ABD. PAIN CAL COLOR URINE ROS. HEENT : N. Resp : No cough,pleuritic CP ,or hemoptysis Cardio : No anginal CP, PND, orthopnea, palpitation GI : No abd.pain, n/v ,diarrhea or GI bleeding . BOBBIN STRIPPER : No headache, vertigo, focal deficit. Musculoskel : No joint swelling , Derm : No rash Psych : Normal affect. Ext : No swelling ,calf pain PE. Pt. is alert awake in no distress. V.S As noted in the chart Head ,ear nose,throat and eyes : Normal. Neck : Supple with normal carotids. Lungs: Clear air entry. Heart : S1 & S2 normal with S4. No murmur. Abd : Soft non tender with normal bowel sounds. TENDER SUPRAPUBIC Neuro : Moves all ext. with no localized deficit. Ext : No edema with intact pulses.Non tender calves Derm : No rashes or decubitus ulcer. LABS/RADIOLOGY: BC POS GRM. NEG RODS ASSESSMENT/PLAN : IV AB UROLOGY /ID NOTED Objective - Vital Signs/Intake and Output Vital Signs (last 24 hours): Temp Pulse Resp BP Pulse Ox 98 F 72 25 H 128/73 100 09/24/16 12:00 09/24/16 13:01 09/24/16 13:01 09/24/16 13:01 09/24/16 12:01 Intake and Output: 09/24/16 09/24/16 11:59 23:59 Intake Total 2013 650 Output Total 1050 100 Balance 963 550 - Medications Medications: Current Medications Albuterol/Ipratropium (Duoneb 3 Mg/0.5 Mg (3 Ml) Ud) 3 ml INH RQ6 [facility] Last Admin: 09/24/16 13:26 Dose: 3 ml Enoxaparin Sodium (Lovenox) 40 mg SC DAILY [facility] Last Admin: 09/24/16 09:00 Dose: 40 mg Famotidine (Pepcid) 20 mg PO BID [facility] Last Admin: 09/24/16 09:00 Dose: 20 mg Imipenem/Cilastatin Sodium 500 (mg/ Sodium Chloride) 100 mls @ 100 mls/hr IVPB Q6H [facility] Last Admin: 09/24/16 09:57 Dose: 100 mls/hr Sodium Chloride (Sodium Chloride 0.9%) 1,000 mls @ 150 mls/hr IV .Q6H40M [facility] Last Admin: 09/24/16 11:16 Dose: 150 mls/hr Amikacin Sulfate 500 mg/ (Sodium Chloride) 252 mls @ 250 mls/hr IVPB Q24H [facility] Stop: 09/26/16 13:01 Insulin Human Regular (Novolin R) 0 unit SC ACHS [facility] PRN Reason: Protocol Last Admin: 09/24/16 11:32 Dose: 4 unit Metformin HCl (Glucophage) 1,000 mg PO BID [facility] Potassium Phos/Sodium Phos (Neutra-Phos) 1 pkt PO Q8H [facility] Last Admin: 09/24/16 05:18 Dose: 1 pkt Tamsulosin HCl (Flomax) 0.4 mg PO DAILY [facility] Last Admin: 09/24/16 09:00 Dose: 0.4 mg - Labs Labs: 09/24/16 06:29 09/24/16 06:29 PT 15.6 SECONDS (9.7-12.2) H 09/22/16 23:14 INR 1.4 09/22/16 23:14 APTT 26 SECONDS (21-34) 09/22/16 23:14
[2016-09-24 14:14] LABS: BASO % 0.2 % (0.0-2.0); EOS % 0.1 % (0.0-4.0); HEMATOCRIT 30.8 % (35.0-51.0); LYMPH # 0.9 K/uL (1.0-4.3); LYMPH % 4.6 % (20.0-40.0); MEAN CELL VOLUME 79.3 fL (80.0-94.0); MEAN CORPUSCULAR HEMOGLOBIN 25.2 pg (27.0-31.0); MEAN CORPUSCULAR HGB CONC 31.8 g/dL (33.0-37.0); MEAN PLATELET VOLUME 9.4 fL (7.2-11.7); MONO # 1.4 K/uL (0.0-0.8); MONO % 7.3 % (0.0-10.0); PLATELET COUNT 100 K/uL (130-400); RED CELL DISTRIBUTION WIDTH 16.7 % (11.5-14.5); WHITE BLOOD COUNT 19.2 K/uL (4.8-10.8)
[2016-09-24 14:27] LABS: CHLORIDE 98 mmol/L (98-107); POTASSIUM 4.4 mmol/L (3.6-5.2); SODIUM 128 mmol/L (132-148)
[2016-09-24 14:29] LABS: GFR AFRICAN-AMERICAN > 60
[2016-09-24 14:30] LABS: ALB/GLOB RATIO 1.1 (1.0-2.1); ALKALINE PHOSPHATASE 53 U/L (38-126); ALT/SGPT 12 U/L (21-72); AST/SGOT 22 U/L (17-59); BILIRUBIN,TOTAL 0.4 mg/dL (0.2-1.3); BLOOD UREA NITROGEN 12 mg/dL (9-20); CARBON DIOXIDE 21 mmol/L (22-30); GLUCOSE,RANDOM 228 mg/dL (75-110); TOTAL PROTEIN 6.1 g/dL (6.3-8.3)
[2016-09-24 14:31] LABS: CALCIUM 8.3 mg/dl (8.6-10.4); PHOSPHOROUS 2.2 mg/dL (2.5-4.5)
[2016-09-24 15:01] LABS: MYELOCYTE 1 % (0-0); NEUTROPHIL 76 % (50-75); TOTAL CELLS COUNTED 100
[2016-09-24 15:03] LABS: GIANT PLATELETS PRESENT
[2016-09-24] MEDS: Amikacin Sulfate 500 MG in Sodium Chloride 0.9% 250 ML IVPB SCH (15:05)
[2016-09-24] MEDS: Promethazine 12.5 mg/10 ml Syrup PO PRN (17:21)
--- NOTE | 2016-09-24 19:11 | PCM.SEPTIC ---
Sepsis Progress Note - Reassessment Type Date of Evaluation: 09/24/16 Time of Evaluation: 08:00 Reassessment Type: Non-invasive reassessment - Non Invasive Reassessment Were the most recent vital sign reviewed: Yes Vital Sign (Latest): Temp Pulse Resp BP Pulse Ox 98 F 94 H 33 H 157/85 H 98 09/24/16 12:00 09/24/16 18:02 09/24/16 18:02 09/24/16 18:02 09/24/16 15:02 Cardiovascular: Yes: Regular Rate, Rhythm, Chest Non Tender. No: Tachycardia Respiratory: Yes: Normal Breath Sounds Capillary Refill: Normal (Less than 2 sec) Pulses: Normal Radial, Normal Dorsalis Pedis, Normal Posterior Tibialis Skin: Normal Color - Invasive Reassessment (complete 2 of 4) Was a Central Venous Pressure Measurement obtained within 6 Hours after the presentation of septic shock: No Was a central venous oxygen measurement obtained within 6 hours after the presentation of septic shock: No Was a bedside cardiovascular ultrasound performed within 6 hours after the presentation of septic shock: No Was a passive leg raise performed or was a fluid challenge performed within 6 hrs of the initial fluid bolus: No Fluid Challenge performed: No
[2016-09-24] MEDS ORDERED: Propofol 10 mg/ml Inj (20 ML) ONE (19:25)
[2016-09-24] MEDS ORDERED: Midazolam 2 MG/2 ML VIAL ONE (19:27)
[2016-09-24] MEDS: Propofol 10 mg/ml 1,000 MG/100 ML VIAL IV PRN ×2 (19:55→23:45)
[2016-09-24] MEDS ORDERED: methylPREDNISolone 60 MG in Sodium Chloride 0.9% 100 ML IVPB SCH (20:00)
[2016-09-24 20:25] LABS: ABG ALLEN TEST POS; ABG MECHANICAL RATE 18; ATERIAL BLOOD GAS PEEP 5; DRAW SITE LRA
--- NOTE | 2016-09-24 20:33 | CP.CCUPN ---
CCU Subjective - Physician Review Events Since Last Encounter (Free Text): 09/24/16 20:3 Around 7:30 patient had acute respiratory distress, desaturated in the 80's, no tachycardia, n hypotension, use of accesory muscles, crakles and mild wheezing, but good air of entry bilateral lasix iwith good UO, shields, bpap at 20/10 wit honly TV 500's. Intubated with mac #3 on first attempt, propofol and versed used. Started solumedrol, stopped fluids, x-ray checked with clear lung bradley. Informed over the phone. Critical care time 35 mn CCU Objective - Vital Signs / Intake & Output Vital Signs (Last 4 hours): Vital Signs Pulse Resp BP 09/24/16 18:02 94 H 33 H 157/85 H 09/24/16 17:01 155/83 H Intake and Output (Last 8hrs): Intake & Output 09/24/16 09/24/16 09/24/16 06:59 14:59 22:59 Intake Total 1161 1860 1300 Output Total 500 650 401 Balance 661 1210 899 Weight 131 lb Intake: Intake, IV Amount 850 1260 700 Right Forearm 850 1260 700 Oral 311 600 600 Output: Urine 500 300 400 Urine, Voided 500 300 400 Stool 0 Urine/Stool Mix 350 1 Other: # Voids Urine, Voided 1 1 # Bowel Movements 1 0 0 - Physical Exam Head: Positive for: Atraumatic, Normocephalic Pupils: Positive for: PERRL Extroacular Muscles: Positive for: EOMI Conjunctiva: Positive for: Normal Mouth: Positive for: Moist Mucous Membranes Neck: Negative for: JVD Respiratory/Chest: Positive for: Clear to Auscultation, Good Air Exchange. Negative for: Respiratory Distress, Accessory Muscle Use, Wheezes Cardiovascular: Positive for: Regular Rate and Rhythm Abdomen: Positive for: Tenderness (slight suprapubic), Normal Bowel Sounds. Negative for: Distention Upper Extremity: Positive for: Normal Inspection. Negative for: Cyanosis Lower Extremity: Positive for: Normal Inspection, NORMAL PULSES. Negative for: Edema Neurological: Positive for: GCS=15, CN II-XII Intact, Speech Normal Skin: Positive for: Warm, Dry Psychiatric: Positive for: Alert, Oriented x 3, Normal Insight, Normal Concentration. Negative for: Anxious - Medications Active Medications: Active Medications Generic Name Dose Route Start Last Admin Trade Name Freq PRN Reason Stop Dose Admin Albuterol/Ipratropium 3 ml 09/24/16 14:00 09/24/16 13:26 Duoneb 3 Mg/0.5 Mg (3 Ml) Ud INH 3 ml RQ6 TISH Administration Enoxaparin Sodium 40 mg 09/23/16 10:00 09/24/16 09:00 Lovenox SC 40 mg DAILY TISH Administration Famotidine 20 mg 09/23/16 10:00 09/24/16 17:10 Pepcid PO 20 mg BID TISH Administration Imipenem/Cilastatin Sodium 500 100 mls @ 100 mls/hr 09/23/16 10:30 09/24/16 17:11 mg/ Sodium Chloride IVPB 100 mls/hr Q6H TISH Administration Amikacin Sulfate 500 mg/ 252 mls @ 250 mls/hr 09/24/16 13:00 09/24/16 15:05 Sodium Chloride IVPB 09/26/16 13:01 250 mls/hr Q24H TISH Administration Propofol 1,000 mg in 100 mls @ 3.565 mls/hr 09/24/16 19:45 Diprivan IV .Q24H PRN TITRATE PER MD ORDER Protocol 10 MCG/KG/MIN Insulin Glargine 10 unit 09/24/16 22:00 Lantus SC HS TISH Insulin Human Regular 0 unit 09/23/16 16:19 09/24/16 17:10 Novolin R SC 4 unit ACHS TISH Administration Protocol Methylprednisolone 60 mg 09/24/16 20:00 Solu-Medrol IVP Q8H TISH Potassium Phos/Sodium Phos 1 pkt 09/23/16 21:00 09/24/16 15:05 Neutra-Phos PO 1 pkt Q8H TISH Administration Promethazine HCl 12.5 mg 09/24/16 17:04 09/24/16 17:21 Phenergan Syrup PO 12.5 mg Q6 PRN Administration Cough Rosuvastatin Calcium 5 mg 09/24/16 22:00 Crestor PO HS TISH Tamsulosin HCl 0.4 mg 09/23/16 10:00 09/24/16 09:00 Flomax PO 0.4 mg DAILY TISH Administration - Patient Studies Lab Studies: Microbiology Studies 09/23/16 01:56 MRSA Culture (Admit) - Final Nose MRSA NOT DETECTED Lab Studies 09/24/16 09/24/16 09/24/16 Range/Units 20:20 16:25 14:07 WBC (4.8-10.8) K/uL RBC (4.40-5.90) Mil/uL Hgb (12.0-18.0) g/dL Hct (35.0-51.0) % MCV (80.0-94.0) fL MCH (27.0-31.0) pg MCHC (33.0-37.0) g/dL RDW (11.5-14.5) % Plt Count (130-400) K/uL MPV (7.2-11.7) fL Neut % (Auto) (50.0-75.0) % Lymph % (Auto) (20.0-40.0) % Harding % (Auto) (0.0-10.0) % Eos % (Auto) (0.0-4.0) % Baso % (Auto) (0.0-2.0) % Neut # (1.8-7.0) K/uL Lymph # (1.0-4.3) K/uL Harding # (0.0-0.8) K/uL Eos # (0.0-0.7) K/uL Baso # (0.0-0.2) K/uL Neutrophils % (Manual) (50-75) % Band Neutrophils % (0-2) % Lymphocytes % (Manual) (20-40) % Monocytes % (Manual) (0-10) % Myelocytes % (0-0) % Platelet Estimate (NORMAL) Large Platelets Giant Platelets Polychromasia Hypochromasia (manual) Poikilocytosis (manual Anisocytosis (manual) Ovalocytes Carroll Cells Puncture Site Lra pCO2 20 L (35-45) mm/Hg pO2 388 H (30-55) mm/Hg HCO3 16.2 L (21-28) mmol/L ABG pH 7.37 (7.35-7.45) ABG Total CO2 12.2 L (22-28) mmol/L ABG O2 Saturation 99.4 H (95-98) % ABG Base Excess -11.3 L (-2.0-3.0) mmol/L Kenneth Test Pos ABG Potassium 1.8 L* (3.6-5.2) mmol/L VBG pH (7.32-7.43) VBG pCO2 (40-60) mmHg VBG HCO3 mmol/L VBG Total CO2 (22-28) mmol/L VBG O2 Sat (Calc) (40-65) % VBG Base Excess (0.0-2.0) mmol/L VBG Potassium (3.6-5.2) mmol/L A-a O2 Difference 300.0 mm/Hg Respiratory Index 0.8 Glucose 49 L (75-110) mg/dl Lactate 1.0 (0.7-2.1) mmol/L Mechanical Rate 18 FiO2 100.0 % Tidal Volume 450 PEEP 5 Crit Value Called To Dr winston Crit Value Called By [facility] Crit Value Read Back Y Blood Gas Notified Time 2024 Sodium 148.0 128 L (132-148) mmol/L Potassium 4.4 (3.6-5.2) mmol/L Chloride 128.0 H 98 (98-107) mmol/L Carbon Dioxide 21 L (22-30) mmol/L Anion Gap 13 (10-20) BUN 12 (9-20) mg/dL Creatinine 0.7 L (0.8-1.5) MG/DL Est GFR ( Amer) > 60 Est GFR (Non-Af Amer) > 60 POC Glucose (mg/dL) 276 H (65-110) mg/dL Random Glucose 228 H (75-110) mg/dL Calcium 8.3 L (8.6-10.4) mg/dl Phosphorus 2.2 L (2.5-4.5) mg/dL Magnesium 2.0 (1.6-2.3) mg/dL Total Bilirubin 0.4 (0.2-1.3) mg/dL AST 22 (17-59) U/L ALT 12 L D (21-72) U/L Alkaline Phosphatase 53 (38-126) U/L Total Protein 6.1 L (6.3-8.3) g/dL Albumin 3.2 L (3.5-5.0) g/dL Globulin 3.0 (2.2-3.9) gm/dL Albumin/Globulin Ratio 1.1 (1.0-2.1) Arterial Blood Potassium 1.8 L* (3.6-5.2) mmol/L Venous Blood Potassium (3.6-5.2) mmol/L 09/24/16 09/24/16 09/24/16 Range/Units 14:07 11:26 07:48 WBC 19.2 H (4.8-10.8) K/uL RBC 3.89 L (4.40-5.90) Mil/uL Hgb 9.8 L (12.0-18.0) g/dL Hct 30.8 L (35.0-51.0) % MCV 79.3 L (80.0-94.0) fL MCH 25.2 L (27.0-31.0) pg MCHC 31.8 L (33.0-37.0) g/dL RDW 16.7 H (11.5-14.5) % Plt Count 100 L (130-400) K/uL MPV 9.4 (7.2-11.7) fL Neut % (Auto) 87.8 H (50.0-75.0) % Lymph % (Auto) 4.6 L (20.0-40.0) % Harding % (Auto) 7.3 (0.0-10.0) % Eos % (Auto) 0.1 (0.0-4.0) % Baso % (Auto) 0.2 (0.0-2.0) % Neut # 16.9 H (1.8-7.0) K/uL Lymph # 0.9 L (1.0-4.3) K/uL Harding # 1.4 H (0.0-0.8) K/uL Eos # 0.0 (0.0-0.7) K/uL Baso # 0.0 (0.0-0.2) K/uL Neutrophils % (Manual) 76 H (50-75) % Band Neutrophils % 14 H* (0-2) % Lymphocytes % (Manual) 2 L (20-40) % Monocytes % (Manual) 7 (0-10) % Myelocytes % 1 H (0-0) % Platelet Estimate Decreased L (NORMAL) Large Platelets Giant Platelets Present Polychromasia Slight Hypochromasia (manual) Slight Poikilocytosis (manual Anisocytosis (manual) Slight Ovalocytes Slight Epifanio Cells Slight Puncture Site pCO2 (35-45) mm/Hg pO2 (30-55) mm/Hg HCO3 (21-28) mmol/L ABG pH (7.35-7.45) ABG Total CO2 (22-28) mmol/L ABG O2 Saturation (95-98) % ABG Base Excess (-2.0-3.0) mmol/L Kenneth Test ABG Potassium (3.6-5.2) mmol/L VBG pH (7.32-7.43) VBG pCO2 (40-60) mmHg VBG HCO3 mmol/L VBG Total CO2 (22-28) mmol/L VBG O2 Sat (Calc) (40-65) % VBG Base Excess (0.0-2.0) mmol/L VBG Potassium (3.6-5.2) mmol/L A-a O2 Difference mm/Hg Respiratory Index Glucose (75-110) mg/dl Lactate (0.7-2.1) mmol/L Mechanical Rate FiO2 % Tidal Volume PEEP Crit Value Called To Crit Value Called By Crit Value Read Back Blood Gas Notified Time Sodium (132-148) mmol/L Potassium (3.6-5.2) mmol/L Chloride (98-107) mmol/L Carbon Dioxide (22-30) mmol/L Anion Gap (10-20) BUN (9-20) mg/dL Creatinine (0.8-1.5) MG/DL Est GFR ( Amer) Est GFR (Non-Af Amer) POC Glucose (mg/dL) 292 H 231 H (65-110) mg/dL Random Glucose (75-110) mg/dL Calcium (8.6-10.4) mg/dl Phosphorus (2.5-4.5) mg/dL Magnesium (1.6-2.3) mg/dL Total Bilirubin (0.2-1.3) mg/dL AST (17-59) U/L ALT (21-72) U/L Alkaline Phosphatase (38-126) U/L Total Protein (6.3-8.3) g/dL Albumin (3.5-5.0) g/dL Globulin (2.2-3.9) gm/dL Albumin/Globulin Ratio (1.0-2.1) Arterial Blood Potassium (3.6-5.2) mmol/L Venous Blood Potassium (3.6-5.2) mmol/L 09/24/16 09/24/16 09/24/16 Range/Units 06:29 06:29 05:11 WBC 18.8 H D (4.8-10.8) K/uL RBC 3.97 L (4.40-5.90) Mil/uL Hgb 10.1 L (12.0-18.0) g/dL Hct 31.4 L (35.0-51.0) % MCV 79.1 L (80.0-94.0) fL MCH 25.4 L (27.0-31.0) pg MCHC 32.2 L (33.0-37.0) g/dL RDW 16.8 H (11.5-14.5) % Plt Count 95 L (130-400) K/uL MPV 9.6 (7.2-11.7) fL Neut % (Auto) 89.1 H (50.0-75.0) % Lymph % (Auto) 3.3 L (20.0-40.0) % Harding % (Auto) 7.4 (0.0-10.0) % Eos % (Auto) 0.1 (0.0-4.0) % Baso % (Auto) 0.1 (0.0-2.0) % Neut # 16.8 H (1.8-7.0) K/uL Lymph # 0.6 L (1.0-4.3) K/uL Harding # 1.4 H (0.0-0.8) K/uL Eos # 0.0 (0.0-0.7) K/uL Baso # 0.0 (0.0-0.2) K/uL Neutrophils % (Manual) 78 H (50-75) % Band Neutrophils % 15 H* (0-2) % Lymphocytes % (Manual) 1 L (20-40) % Monocytes % (Manual) 6 (0-10) % Myelocytes % (0-0) % Platelet Estimate Decreased L (NORMAL) Large Platelets Present Giant Platelets Polychromasia Hypochromasia (manual) Slight Poikilocytosis (manual Slight Anisocytosis (manual) Slight Ovalocytes Slight Carroll Cells Slight Puncture Site pCO2 (35-45) mm/Hg pO2 28 L (30-55) mm/Hg HCO3 (21-28) mmol/L ABG pH (7.35-7.45) ABG Total CO2 (22-28) mmol/L ABG O2 Saturation (95-98) % ABG Base Excess (-2.0-3.0) mmol/L Kenneth Test ABG Potassium (3.6-5.2) mmol/L VBG pH 7.31 L (7.32-7.43) VBG pCO2 36 L (40-60) mmHg VBG HCO3 17.7 mmol/L VBG Total CO2 19.2 L (22-28) mmol/L VBG O2 Sat (Calc) 57.7 (40-65) % VBG Base Excess -7.4 L (0.0-2.0) mmol/L VBG Potassium 4.3 (3.6-5.2) mmol/L A-a O2 Difference mm/Hg Respiratory Index Glucose 214 H (75-110) mg/dl Lactate 3.2 H (0.7-2.1) mmol/L Mechanical Rate FiO2 % Tidal Volume PEEP Crit Value Called To Crit Value Called By Crit Value Read Back Blood Gas Notified Time Sodium 129 L 131.0 L (132-148) mmol/L Potassium 4.5 (3.6-5.2) mmol/L Chloride 99 105.0 (98-107) mmol/L Carbon Dioxide 19 L (22-30) mmol/L Anion Gap 16 (10-20) BUN 12 (9-20) mg/dL Creatinine 0.7 L (0.8-1.5) MG/DL Est GFR ( Amer) > 60 Est GFR (Non-Af Amer) > 60 POC Glucose (mg/dL) (65-110) mg/dL Random Glucose 206 H (75-110) mg/dL Calcium 7.9 L (8.6-10.4) mg/dl Phosphorus 2.3 L (2.5-4.5) mg/dL Magnesium 2.0 (1.6-2.3) mg/dL Total Bilirubin 0.5 (0.2-1.3) mg/dL AST 26 (17-59) U/L ALT 20 L (21-72) U/L Alkaline Phosphatase 53 (38-126) U/L Total Protein 6.2 L (6.3-8.3) g/dL Albumin 3.1 L (3.5-5.0) g/dL Globulin 3.1 (2.2-3.9) gm/dL Albumin/Globulin Ratio 1.0 (1.0-2.1) Arterial Blood Potassium (3.6-5.2) mmol/L Venous Blood Potassium 4.3 (3.6-5.2) mmol/L 09/24/16 09/23/16 Range/Units 00:37 20:50 WBC (4.8-10.8) K/uL RBC (4.40-5.90) Mil/uL Hgb (12.0-18.0) g/dL Hct (35.0-51.0) % MCV (80.0-94.0) fL MCH (27.0-31.0) pg MCHC (33.0-37.0) g/dL RDW (11.5-14.5) % Plt Count (130-400) K/uL MPV (7.2-11.7) fL Neut % (Auto) (50.0-75.0) % Lymph % (Auto) (20.0-40.0) % Harding % (Auto) (0.0-10.0) % Eos % (Auto) (0.0-4.0) % Baso % (Auto) (0.0-2.0) % Neut # (1.8-7.0) K/uL Lymph # (1.0-4.3) K/uL Harding # (0.0-0.8) K/uL Eos # (0.0-0.7) K/uL Baso # (0.0-0.2) K/uL Neutrophils % (Manual) (50-75) % Band Neutrophils % (0-2) % Lymphocytes % (Manual) (20-40) % Monocytes % (Manual) (0-10) % Myelocytes % (0-0) % Platelet Estimate (NORMAL) Large Platelets Giant Platelets Polychromasia Hypochromasia (manual) Poikilocytosis (manual Anisocytosis (manual) Ovalocytes Carroll Cells Puncture Site pCO2 (35-45) mm/Hg pO2 (30-55) mm/Hg HCO3 (21-28) mmol/L ABG pH (7.35-7.45) ABG Total CO2 (22-28) mmol/L ABG O2 Saturation (95-98) % ABG Base Excess (-2.0-3.0) mmol/L Kenneth Test ABG Potassium (3.6-5.2) mmol/L VBG pH (7.32-7.43) VBG pCO2 (40-60) mmHg VBG HCO3 mmol/L VBG Total CO2 (22-28) mmol/L VBG O2 Sat (Calc) (40-65) % VBG Base Excess (0.0-2.0) mmol/L VBG Potassium (3.6-5.2) mmol/L A-a O2 Difference mm/Hg Respiratory Index Glucose (75-110) mg/dl Lactate (0.7-2.1) mmol/L Mechanical Rate FiO2 % Tidal Volume PEEP Crit Value Called To Crit Value Called By Crit Value Read Back Blood Gas Notified Time Sodium 132 (132-148) mmol/L Potassium 4.5 (3.6-5.2) mmol/L Chloride 102 (98-107) mmol/L Carbon Dioxide 14 L (22-30) mmol/L Anion Gap 21 H (10-20) BUN 11 (9-20) mg/dL Creatinine 0.7 L (0.8-1.5) MG/DL Est GFR ( Amer) > 60 Est GFR (Non-Af Amer) > 60 POC Glucose (mg/dL) 316 H (65-110) mg/dL Random Glucose 257 H (75-110) mg/dL Calcium 8.0 L (8.6-10.4) mg/dl Phosphorus (2.5-4.5) mg/dL Magnesium 2.1 (1.6-2.3) mg/dL Total Bilirubin (0.2-1.3) mg/dL AST (17-59) U/L ALT (21-72) U/L Alkaline Phosphatase (38-126) U/L Total Protein (6.3-8.3) g/dL Albumin (3.5-5.0) g/dL Globulin (2.2-3.9) gm/dL Albumin/Globulin Ratio (1.0-2.1) Arterial Blood Potassium (3.6-5.2) mmol/L Venous Blood Potassium (3.6-5.2) mmol/L Laboratory Results - last 24 hr 09/23/16 09/24/16 09/24/16 20:50 00:37 05:11 WBC RBC Hgb Hct MCV MCH MCHC RDW Plt Count MPV Neut % (Auto) Lymph % (Auto) Harding % (Auto) Eos % (Auto) Baso % (Auto) Neut # Lymph # Harding # Eos # Baso # Neutrophils % (Manual) Band Neutrophils % Lymphocytes % (Manual) Monocytes % (Manual) Myelocytes % Platelet Estimate Large Platelets Giant Platelets Polychromasia Hypochromasia (manual) Poikilocytosis (manual Anisocytosis (manual) Ovalocytes Carroll Cells Puncture Site pCO2 pO2 28 L HCO3 ABG pH ABG Total CO2 ABG O2 Saturation ABG Base Excess Kenneth Test ABG Potassium VBG pH 7.31 L VBG pCO2 36 L VBG HCO3 17.7 VBG Total CO2 19.2 L VBG O2 Sat (Calc) 57.7 VBG Base Excess -7.4 L VBG Potassium 4.3 A-a O2 Difference Respiratory Index Glucose 214 H Lactate 3.2 H Mechanical Rate FiO2 Tidal Volume PEEP Crit Value Called To Crit Value Called By Crit Value Read Back Blood Gas Notified Time Sodium 132 131.0 L Potassium 4.5 Chloride 102 105.0 Carbon Dioxide 14 L Anion Gap 21 H BUN 11 Creatinine 0.7 L Est GFR ( Amer) > 60 Est GFR (Non-Af Amer) > 60 POC Glucose (mg/dL) 316 H Random Glucose 257 H Calcium 8.0 L Phosphorus Magnesium 2.1 Total Bilirubin AST ALT Alkaline Phosphatase Total Protein Albumin Globulin Albumin/Globulin Ratio Arterial Blood Potassium Venous Blood Potassium 4.3 09/24/16 09/24/16 09/24/16 06:29 06:29 07:48 WBC 18.8 H D RBC 3.97 L Hgb 10.1 L Hct 31.4 L MCV 79.1 L MCH 25.4 L MCHC 32.2 L RDW 16.8 H Plt Count 95 L MPV 9.6 Neut % (Auto) 89.1 H Lymph % (Auto) 3.3 L Harding % (Auto) 7.4 Eos % (Auto) 0.1 Baso % (Auto) 0.1 Neut # 16.8 H Lymph # 0.6 L Harding # 1.4 H Eos # 0.0 Baso # 0.0 Neutrophils % (Manual) 78 H Band Neutrophils % 15 H* Lymphocytes % (Manual) 1 L Monocytes % (Manual) 6 Myelocytes % Platelet Estimate Decreased L Large Platelets Present Giant Platelets Polychromasia Hypochromasia (manual) Slight Poikilocytosis (manual Slight Anisocytosis (manual) Slight Ovalocytes Slight Carroll Cells Slight Puncture Site pCO2 pO2 HCO3 ABG pH ABG Total CO2 ABG O2 Saturation ABG Base Excess Kenneth Test ABG Potassium VBG pH VBG pCO2 VBG HCO3 VBG Total CO2 VBG O2 Sat (Calc) VBG Base Excess VBG Potassium A-a O2 Difference Respiratory Index Glucose Lactate Mechanical Rate FiO2 Tidal Volume PEEP Crit Value Called To Crit Value Called By Crit Value Read Back Blood Gas Notified Time Sodium 129 L Potassium 4.5 Chloride 99 Carbon Dioxide 19 L Anion Gap 16 BUN 12 Creatinine 0.7 L Est GFR ( Amer) > 60 Est GFR (Non-Af Amer) > 60 POC Glucose (mg/dL) 231 H Random Glucose 206 H Calcium 7.9 L Phosphorus 2.3 L Magnesium 2.0 Total Bilirubin 0.5 AST 26 ALT 20 L Alkaline Phosphatase 53 Total Protein 6.2 L Albumin 3.1 L Globulin 3.1 Albumin/Globulin Ratio 1.0 Arterial Blood Potassium Venous Blood Potassium 09/24/16 09/24/16 09/24/16 11:26 14:07 14:07 WBC 19.2 H RBC 3.89 L Hgb 9.8 L Hct 30.8 L MCV 79.3 L MCH 25.2 L MCHC 31.8 L RDW 16.7 H Plt Count 100 L MPV 9.4 Neut % (Auto) 87.8 H Lymph % (Auto) 4.6 L Harding % (Auto) 7.3 Eos % (Auto) 0.1 Baso % (Auto) 0.2 Neut # 16.9 H Lymph # 0.9 L Harding # 1.4 H Eos # 0.0 Baso # 0.0 Neutrophils % (Manual) 76 H Band Neutrophils % 14 H* Lymphocytes % (Manual) 2 L Monocytes % (Manual) 7 Myelocytes % 1 H Platelet Estimate Decreased L Large Platelets Giant Platelets Present Polychromasia Slight Hypochromasia (manual) Slight Poikilocytosis (manual Anisocytosis (manual) Slight Ovalocytes Slight Carroll Cells Slight Puncture Site pCO2 pO2 HCO3 ABG pH ABG Total CO2 ABG O2 Saturation ABG Base Excess Kenneth Test ABG Potassium VBG pH VBG pCO2 VBG HCO3 VBG Total CO2 VBG O2 Sat (Calc) VBG Base Excess VBG Potassium A-a O2 Difference Respiratory Index Glucose Lactate Mechanical Rate FiO2 Tidal Volume PEEP Crit Value Called To Crit Value Called By Crit Value Read Back Blood Gas Notified Time Sodium 128 L Potassium 4.4 Chloride 98 Carbon Dioxide 21 L Anion Gap 13 BUN 12 Creatinine 0.7 L Est GFR ( Amer) > 60 Est GFR (Non-Af Amer) > 60 POC Glucose (mg/dL) 292 H Random Glucose 228 H Calcium 8.3 L Phosphorus 2.2 L Magnesium 2.0 Total Bilirubin 0.4 AST 22 ALT 12 L D Alkaline Phosphatase 53 Total Protein 6.1 L Albumin 3.2 L Globulin 3.0 Albumin/Globulin Ratio 1.1 Arterial Blood Potassium Venous Blood Potassium 09/24/16 09/24/16 16:25 20:20 WBC RBC Hgb Hct MCV MCH MCHC RDW Plt Count MPV Neut % (Auto) Lymph % (Auto) Harding % (Auto) Eos % (Auto) Baso % (Auto) Neut # Lymph # Harding # Eos # Baso # Neutrophils % (Manual) Band Neutrophils % Lymphocytes % (Manual) Monocytes % (Manual) Myelocytes % Platelet Estimate Large Platelets Giant Platelets Polychromasia Hypochromasia (manual) Poikilocytosis (manual Anisocytosis (manual) Ovalocytes Epifanio Cells Puncture Site Lra pCO2 20 L pO2 388 H HCO3 16.2 L ABG pH 7.37 ABG Total CO2 12.2 L ABG O2 Saturation 99.4 H ABG Base Excess -11.3 L Kenneth Test Pos ABG Potassium 1.8 L* VBG pH VBG pCO2 VBG HCO3 VBG Total CO2 VBG O2 Sat (Calc) VBG Base Excess VBG Potassium A-a O2 Difference 300.0 Respiratory Index 0.8 Glucose 49 L Lactate 1.0 Mechanical Rate 18 FiO2 100.0 Tidal Volume 450 PEEP 5 Crit Value Called To Dr winston Crit Value Called By [facility] Crit Value Read Back Y Blood Gas Notified Time 2024 Sodium 148.0 Potassium Chloride 128.0 H Carbon Dioxide Anion Gap BUN Creatinine Est GFR ( Amer) Est GFR (Non-Af Amer) POC Glucose (mg/dL) 276 H Random Glucose Calcium Phosphorus Magnesium Total Bilirubin AST ALT Alkaline Phosphatase Total Protein Albumin Globulin Albumin/Globulin Ratio Arterial Blood Potassium 1.8 L* Venous Blood Potassium Fingerstick Blood Sugar Results: 231 Critical Care Progress Note - Nutrition Nutrition: Nutrition Category Date Time Status Diabetic [Consistent Carbohydrate] [DIET] Diets 09/23/16 Breakfast Active
--- NOTE | 2016-09-24 22:03 | CP.PCM.PN ---
Subjective - Date & Time of Evaluation Date of Evaluation: 09/24/16 Time of Evaluation: 22:03 Objective - Vital Signs/Intake and Output Vital Signs (last 24 hours): Temp Pulse Resp BP Pulse Ox 98 F 122 H 33 H 157/85 H 98 09/24/16 12:00 09/24/16 19:00 09/24/16 18:02 09/24/16 18:02 09/24/16 15:02 Intake and Output: 09/24/16 09/25/16 18:59 06:59 Intake Total 3160 Output Total 1051 Balance 2109 - Medications Medications: Current Medications Albuterol/Ipratropium (Duoneb 3 Mg/0.5 Mg (3 Ml) Ud) 3 ml INH RQ6 [facility] Last Admin: 09/24/16 19:50 Dose: 3 ml Enoxaparin Sodium (Lovenox) 40 mg SC DAILY [facility] Last Admin: 09/24/16 09:00 Dose: 40 mg Famotidine (Pepcid) 20 mg PO BID [facility] Last Admin: 09/24/16 17:10 Dose: 20 mg Imipenem/Cilastatin Sodium 500 (mg/ Sodium Chloride) 100 mls @ 100 mls/hr IVPB Q6H [facility] Last Admin: 09/24/16 17:11 Dose: 100 mls/hr Amikacin Sulfate 500 mg/ (Sodium Chloride) 252 mls @ 250 mls/hr IVPB Q24H [facility] Stop: 09/26/16 13:01 Last Admin: 09/24/16 15:05 Dose: 250 mls/hr Propofol (Diprivan) 1,000 mg in 100 mls @ 3.565 mls/hr IV .Q24H PRN; Protocol; 10 MCG/KG/MIN PRN Reason: TITRATE PER MD ORDER Insulin Glargine (Lantus) 10 unit SC HS TISH Insulin Human Regular (Novolin R) 0 unit SC ACHS TISH PRN Reason: Protocol Last Admin: 09/24/16 17:10 Dose: 4 unit Methylprednisolone (Solu-Medrol) 60 mg IVP Q8H [facility] Potassium Phos/Sodium Phos (Neutra-Phos) 1 pkt PO Q8H [facility] Last Admin: 09/24/16 15:05 Dose: 1 pkt Promethazine HCl (Phenergan Syrup) 12.5 mg PO Q6 PRN PRN Reason: Cough Last Admin: 09/24/16 17:21 Dose: 12.5 mg Rosuvastatin Calcium (Crestor) 5 mg PO HS TISH Tamsulosin HCl (Flomax) 0.4 mg PO DAILY TISH Last Admin: 09/24/16 09:00 Dose: 0.4 mg - Labs Labs: 09/24/16 14:07 09/24/16 14:07 PT 15.6 SECONDS (9.7-12.2) H 09/22/16 23:14 INR 1.4 09/22/16 23:14 APTT 26 SECONDS (21-34) 09/22/16 23:14 Assessment and Plan (1) Sepsis Status: Acute (2) Fever Status: Acute (3) UTI (urinary tract infection) Status: Acute (4) Hyponatremia Status: Acute (5) Diabetes mellitus Status: Acute (6) Rheumatoid arthritis Status: Acute
[2016-09-24 22:43] LABS: CHLORIDE 100 mmol/L (98-107); POTASSIUM 3.7 mmol/L (3.6-5.2); SODIUM 131 mmol/L (132-148)
[2016-09-24 22:46] LABS: BLOOD UREA NITROGEN 10 mg/dL (9-20); CARBON DIOXIDE 21 mmol/L (22-30); GFR AFRICAN-AMERICAN > 60
[2016-09-24 22:47] LABS: CALCIUM 8.7 mg/dl (8.6-10.4); GLUCOSE,RANDOM 72 mg/dL (75-110); MAGNESIUM 1.7 mg/dL (1.6-2.3); PHOSPHOROUS 2.5 mg/dL (2.5-4.5)
[2016-09-24] MEDS: (Lantus) Insulin Glargine, Recombinant SC SCH (22:56)
[2016-09-25] MEDS: Albuterol-Ipratrop 3 mg / 0.5 (3 ml) UD INH SCH ×4 (01:11→19:22)
[2016-09-25 04:21] LABS: ABG MECHANICAL RATE 12; ARTERIAL BLOOD HGB O2 SAT 96.6 % (95.0-98.0); ATERIAL BLOOD GAS PEEP 5; CARBOXYHEMOGLOBIN 0.9 % (0.5-1.5); DRAW SITE LB; HHB 1.5 % (0.0-5.0)
[2016-09-25] MEDS: Potassium & Sodium Phosphate PO SCH ×3 (05:04→22:10)
[2016-09-25] MEDS ORDERED: Potassium Chloride 20 mEq/15 ml LIQ UD PO ONE ×2 (05:38→07:45)
[2016-09-25 06:46] LABS: BASO # 0.1 K/uL (0.0-0.2); BASO % 0.4 % (0.0-2.0); EOS % 0.2 % (0.0-4.0); HEMATOCRIT 27.2 % (35.0-51.0); LYMPH # 0.7 K/uL (1.0-4.3); LYMPH % 5.6 % (20.0-40.0); MEAN CELL VOLUME 78.2 fL (80.0-94.0); MEAN CORPUSCULAR HEMOGLOBIN 26.9 pg (27.0-31.0); MEAN CORPUSCULAR HGB CONC 34.4 g/dL (33.0-37.0); MEAN PLATELET VOLUME 11.1 fL (7.2-11.7); MONO % 7.9 % (0.0-10.0); NRBC % 0.5 % (0.0-2.0); PLATELET COUNT 111 K/uL (130-400); RED CELL DISTRIBUTION WIDTH 16.4 % (11.5-14.5); WHITE BLOOD COUNT 12.6 K/uL (4.8-10.8)
[2016-09-25] MEDS: Propofol 10 mg/ml 1,000 MG/100 ML VIAL IV PRN (07:00)
[2016-09-25] MEDS ORDERED: Magnesium Sulfate 1 gm in D5W 1 GM/100 ML BAG IVPB ONE (07:38)
--- NOTE | 2016-09-25 07:48 | CP.CCUPN ---
<Eliseo Lucas - Last Filed: 09/25/16 10:02> CCU Subjective - Physician Review Subjective (Free Text): 09/25/16 07:42 Pt seen and examined at bedside. 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 Pt desaturated into the low 80s, and became hypotensive, so pt was intubated. ROS unavailable due to pt clinical condition. Critical Care Time Spent (in minutes): 45 CCU Objective - Vital Signs / Intake & Output Vital Signs (Last 4 hours): Vital Signs Pulse Resp BP Pulse Ox 09/25/16 07:01 72 17 127/60 99 09/25/16 07:00 71 18 99 09/25/16 06:01 74 16 134/65 99 09/25/16 06:00 75 15 99 09/25/16 05:01 82 13 140/73 100 09/25/16 05:00 82 17 100 09/25/16 04:01 80 17 147/74 100 09/25/16 04:00 86 18 100 Intake and Output (Last 8hrs): Intake & Output 09/24/16 09/25/16 09/25/16 22:59 06:59 14:59 Intake Total 1941.6 516.4 15.8 Output Total 3201 2650 700 Balance -1259.4 -2133.6 -684.2 Weight 145 lb 8.081 oz Intake: IV 10 190 Intake, IV Amount 1331.6 326.4 15.8 Right Forearm 1331.6 326.4 15.8 Oral 600 0 0 Output: Urine 3200 2650 700 Urine, Voided 3200 2650 700 Urine/Stool Mix 1 Other: # Voids Urine, Voided 1 # Bowel Movements 0 - Physical Exam Head: Positive for: Atraumatic, Normocephalic Pupils: Positive for: PERRL Extroacular Muscles: Positive for: EOMI Conjunctiva: Positive for: Normal Mouth: Positive for: Moist Mucous Membranes Neck: Negative for: JVD Respiratory/Chest: Positive for: Good Air Exchange, Other (Pt intubated; MV sounds transmitted). Negative for: Respiratory Distress, Rhonchi Cardiovascular: Positive for: Regular Rate and Rhythm Abdomen: Positive for: Normal Bowel Sounds. Negative for: Distention Upper Extremity: Positive for: Normal Inspection. Negative for: Cyanosis Lower Extremity: Positive for: Normal Inspection, NORMAL PULSES. Negative for: Edema Neurological: Positive for: Other (pt intubated). Negative for: GCS=15, CN II- XII Intact, Speech Normal Skin: Positive for: Warm, Dry Psychiatric: Positive for: Alert. Negative for: Oriented x 3, Normal Insight, Normal Concentration, Anxious - Medications Active Medications: Active Medications Generic Name Dose Route Start Last Admin Trade Name Freq PRN Reason Stop Dose Admin Albuterol/Ipratropium 3 ml 09/24/16 14:00 09/25/16 01:11 Duoneb 3 Mg/0.5 Mg (3 Ml) Ud INH 3 ml RQ6 TISH Administration Enoxaparin Sodium 40 mg 09/23/16 10:00 09/24/16 09:00 Lovenox SC 40 mg DAILY TISH Administration Famotidine 20 mg 09/23/16 10:00 09/24/16 17:10 Pepcid PO 20 mg BID TISH Administration Imipenem/Cilastatin Sodium 500 100 mls @ 100 mls/hr 09/23/16 10:30 09/25/16 04:00 mg/ Sodium Chloride IVPB 100 mls/hr Q6H TISH Administration Amikacin Sulfate 500 mg/ 252 mls @ 250 mls/hr 09/24/16 13:00 09/24/16 15:05 Sodium Chloride IVPB 09/26/16 13:01 250 mls/hr Q24H TISH Administration Propofol 1,000 mg in 100 mls @ 3.565 mls/hr 09/24/16 19:45 09/25/16 07:00 Diprivan IV 40 mcg/kg/min .Q24H PRN 14.261 mls/hr TITRATE PER MD ORDER Administration Protocol 10 MCG/KG/MIN Potassium Chloride 10 meq in 100 mls @ 100 mls/hr 09/25/16 07:37 Potassium Chloride 10 Meq/100 Ml IVPB 09/25/16 08:36 ONCE ONE Magnesium Sulfate/Dextrose 1 gm in 100 mls @ 100 mls/hr 09/25/16 07:38 Magnesium Sulfate 1 Gm/100 Ml D5w IVPB 09/25/16 08:37 ONCE ONE Insulin Glargine 10 unit 09/24/16 22:00 09/24/16 22:56 Lantus SC Not Given HS TISH Insulin Human Regular 0 unit 09/23/16 16:19 09/24/16 22:56 Novolin R SC Not Given ACHS TISH Protocol Methylprednisolone 60 mg 09/24/16 20:00 09/25/16 04:14 Solu-Medrol IVP 60 mg Q8H TISH Administration Potassium Chloride 40 meq 09/25/16 07:45 09/25/16 07:37 Potassium Chloride Oral Soln PO 09/25/16 07:46 Not Given ONCE ONE Potassium Phos/Sodium Phos 1 pkt 09/23/16 21:00 09/25/16 05:04 Neutra-Phos PO Not Given Q8H TISH Promethazine HCl 12.5 mg 09/24/16 17:04 09/24/16 17:21 Phenergan Syrup PO 12.5 mg Q6 PRN Administration Cough Rosuvastatin Calcium 5 mg 09/24/16 22:00 09/24/16 22:55 Crestor PO Not Given HS TISH Tamsulosin HCl 0.4 mg 09/23/16 10:00 09/24/16 09:00 Flomax PO 0.4 mg DAILY TISH Administration - Patient Studies Lab Studies: Microbiology Studies 09/23/16 01:56 MRSA Culture (Admit) - Final Nose MRSA NOT DETECTED Lab Studies 09/25/16 09/25/16 09/25/16 Range/Units 07:20 06:24 04:15 WBC 12.6 H (4.8-10.8) K/uL RBC 3.47 L (4.40-5.90) Mil/uL Hgb 9.4 L (12.0-18.0) g/dL Hct 27.2 L (35.0-51.0) % MCV 78.2 L (80.0-94.0) fL MCH 26.9 L (27.0-31.0) pg MCHC 34.4 (33.0-37.0) g/dL RDW 16.4 H (11.5-14.5) % Plt Count 111 L (130-400) K/uL MPV 11.1 (7.2-11.7) fL Neut % (Auto) 85.9 H (50.0-75.0) % Lymph % (Auto) 5.6 L (20.0-40.0) % [place] % (Auto) 7.9 (0.0-10.0) % Eos % (Auto) 0.2 (0.0-4.0) % Baso % (Auto) 0.4 (0.0-2.0) % Neut # 10.8 H (1.8-7.0) K/uL Lymph # 0.7 L (1.0-4.3) K/uL [place] # 1.0 H (0.0-0.8) K/uL Eos # 0.0 (0.0-0.7) K/uL Baso # 0.1 (0.0-0.2) K/uL Neutrophils % (Manual) (50-75) % Band Neutrophils % (0-2) % Lymphocytes % (Manual) (20-40) % Monocytes % (Manual) (0-10) % Myelocytes % (0-0) % Platelet Estimate (NORMAL) Large Platelets Giant Platelets Polychromasia Hypochromasia (manual) Poikilocytosis (manual Anisocytosis (manual) Ovalocytes [place] Cells Puncture Site Lb pCO2 34 L (35-45) mm/Hg pO2 121 H (80-100) mm/Hg HCO3 24.9 (21-28) mmol/L ABG pH 7.45 (7.35-7.45) ABG Total CO2 24.6 (22-28) mmol/L ABG O2 Saturation 98.5 H (95-98) % ABG Base Excess -0.1 (-2.0-3.0) mmol/L ABG Hemoglobin 9.9 L (11.7-17.4) g/dL ABG Carboxyhemoglobin 0.9 (0.5-1.5) % POC ABG HHb (Measured) 1.5 (0.0-5.0) % ABG Methemoglobin 1.0 (0.0-3.0) % Kenneth Test Na ABG Potassium (3.6-5.2) mmol/L A-a O2 Difference 50.0 mm/Hg Respiratory Index 0.4 Hgb O2 Saturation 96.6 (95.0-98.0) % Glucose (75-110) mg/dl Lactate (0.7-2.1) mmol/L Mechanical Rate 12 FiO2 30.0 % Tidal Volume 450 PEEP 5 Crit Value Called To Crit Value Called By Crit Value Read Back Blood Gas Notified Time Sodium (132-148) mmol/L Potassium (3.6-5.2) mmol/L Chloride (98-107) mmol/L Carbon Dioxide (22-30) mmol/L Anion Gap (10-20) BUN (9-20) mg/dL Creatinine (0.8-1.5) MG/DL Est GFR ( Amer) Est GFR (Non-Af Amer) POC Glucose (mg/dL) 166 H (65-110) mg/dL Random Glucose (75-110) mg/dL Calcium (8.6-10.4) mg/dl Phosphorus (2.5-4.5) mg/dL Magnesium (1.6-2.3) mg/dL Total Bilirubin (0.2-1.3) mg/dL AST (17-59) U/L ALT (21-72) U/L Alkaline Phosphatase (38-126) U/L Total Protein (6.3-8.3) g/dL Albumin (3.5-5.0) g/dL Globulin (2.2-3.9) gm/dL Albumin/Globulin Ratio (1.0-2.1) Arterial Blood Potassium (3.6-5.2) mmol/L 09/24/16 09/24/16 09/24/16 Range/Units 22:33 21:29 20:20 WBC (4.8-10.8) K/uL RBC (4.40-5.90) Mil/uL Hgb (12.0-18.0) g/dL Hct (35.0-51.0) % MCV (80.0-94.0) fL MCH (27.0-31.0) pg MCHC (33.0-37.0) g/dL RDW (11.5-14.5) % Plt Count (130-400) K/uL MPV (7.2-11.7) fL Neut % (Auto) (50.0-75.0) % Lymph % (Auto) (20.0-40.0) % [place] % (Auto) (0.0-10.0) % Eos % (Auto) (0.0-4.0) % Baso % (Auto) (0.0-2.0) % Neut # (1.8-7.0) K/uL Lymph # (1.0-4.3) K/uL [place] # (0.0-0.8) K/uL Eos # (0.0-0.7) K/uL Baso # (0.0-0.2) K/uL Neutrophils % (Manual) (50-75) % Band Neutrophils % (0-2) % Lymphocytes % (Manual) (20-40) % Monocytes % (Manual) (0-10) % Myelocytes % (0-0) % Platelet Estimate (NORMAL) Large Platelets Giant Platelets Polychromasia Hypochromasia (manual) Poikilocytosis (manual Anisocytosis (manual) Ovalocytes Epifanio Cells Puncture Site Lra pCO2 20 L (35-45) mm/Hg pO2 388 H (80-100) mm/Hg HCO3 16.2 L (21-28) mmol/L ABG pH 7.37 (7.35-7.45) ABG Total CO2 12.2 L (22-28) mmol/L ABG O2 Saturation 99.4 H (95-98) % ABG Base Excess -11.3 L (-2.0-3.0) mmol/L ABG Hemoglobin (11.7-17.4) g/dL ABG Carboxyhemoglobin (0.5-1.5) % POC ABG HHb (Measured) (0.0-5.0) % ABG Methemoglobin (0.0-3.0) % Kenneth Test Pos ABG Potassium 1.8 L* (3.6-5.2) mmol/L A-a O2 Difference 300.0 mm/Hg Respiratory Index 0.8 Hgb O2 Saturation (95.0-98.0) % Glucose 49 L (75-110) mg/dl Lactate 1.0 (0.7-2.1) mmol/L Mechanical Rate 18 FiO2 100.0 % Tidal Volume 450 PEEP 5 Crit Value Called To Dr winston Crit Value Called By [facility] Crit Value Read Back Y Blood Gas Notified Time 2024 Sodium 131 L 148.0 (132-148) mmol/L Potassium 3.7 (3.6-5.2) mmol/L Chloride 100 128.0 H (98-107) mmol/L Carbon Dioxide 21 L (22-30) mmol/L Anion Gap 14 (10-20) BUN 10 (9-20) mg/dL Creatinine 0.7 L (0.8-1.5) MG/DL Est GFR ( Amer) > 60 Est GFR (Non-Af Amer) > 60 POC Glucose (mg/dL) 84 (65-110) mg/dL Random Glucose 72 L (75-110) mg/dL Calcium 8.7 (8.6-10.4) mg/dl Phosphorus 2.5 (2.5-4.5) mg/dL Magnesium 1.7 (1.6-2.3) mg/dL Total Bilirubin (0.2-1.3) mg/dL AST (17-59) U/L ALT (21-72) U/L Alkaline Phosphatase (38-126) U/L Total Protein (6.3-8.3) g/dL Albumin (3.5-5.0) g/dL Globulin (2.2-3.9) gm/dL Albumin/Globulin Ratio (1.0-2.1) Arterial Blood Potassium 1.8 L* (3.6-5.2) mmol/L 09/24/16 09/24/16 09/24/16 Range/Units 16:25 14:07 14:07 WBC 19.2 H (4.8-10.8) K/uL RBC 3.89 L (4.40-5.90) Mil/uL Hgb 9.8 L (12.0-18.0) g/dL Hct 30.8 L (35.0-51.0) % MCV 79.3 L (80.0-94.0) fL MCH 25.2 L (27.0-31.0) pg MCHC 31.8 L (33.0-37.0) g/dL RDW 16.7 H (11.5-14.5) % Plt Count 100 L (130-400) K/uL MPV 9.4 (7.2-11.7) fL Neut % (Auto) 87.8 H (50.0-75.0) % Lymph % (Auto) 4.6 L (20.0-40.0) % [place] % (Auto) 7.3 (0.0-10.0) % Eos % (Auto) 0.1 (0.0-4.0) % Baso % (Auto) 0.2 (0.0-2.0) % Neut # 16.9 H (1.8-7.0) K/uL Lymph # 0.9 L (1.0-4.3) K/uL [place] # 1.4 H (0.0-0.8) K/uL Eos # 0.0 (0.0-0.7) K/uL Baso # 0.0 (0.0-0.2) K/uL Neutrophils % (Manual) 76 H (50-75) % Band Neutrophils % 14 H* (0-2) % Lymphocytes % (Manual) 2 L (20-40) % Monocytes % (Manual) 7 (0-10) % Myelocytes % 1 H (0-0) % Platelet Estimate Decreased L (NORMAL) Large Platelets Giant Platelets Present Polychromasia Slight Hypochromasia (manual) Slight Poikilocytosis (manual Anisocytosis (manual) Slight Ovalocytes Slight Epifanio Cells Slight Puncture Site pCO2 (35-45) mm/Hg pO2 (80-100) mm/Hg HCO3 (21-28) mmol/L ABG pH (7.35-7.45) ABG Total CO2 (22-28) mmol/L ABG O2 Saturation (95-98) % ABG Base Excess (-2.0-3.0) mmol/L ABG Hemoglobin (11.7-17.4) g/dL ABG Carboxyhemoglobin (0.5-1.5) % POC ABG HHb (Measured) (0.0-5.0) % ABG Methemoglobin (0.0-3.0) % Kenneth Test ABG Potassium (3.6-5.2) mmol/L A-a O2 Difference mm/Hg Respiratory Index Hgb O2 Saturation (95.0-98.0) % Glucose (75-110) mg/dl Lactate (0.7-2.1) mmol/L Mechanical Rate FiO2 % Tidal Volume PEEP Crit Value Called To Crit Value Called By Crit Value Read Back Blood Gas Notified Time Sodium 128 L (132-148) mmol/L Potassium 4.4 (3.6-5.2) mmol/L Chloride 98 (98-107) mmol/L Carbon Dioxide 21 L (22-30) mmol/L Anion Gap 13 (10-20) BUN 12 (9-20) mg/dL Creatinine 0.7 L (0.8-1.5) MG/DL Est GFR ( Amer) > 60 Est GFR (Non-Af Amer) > 60 POC Glucose (mg/dL) 276 H (65-110) mg/dL Random Glucose 228 H (75-110) mg/dL Calcium 8.3 L (8.6-10.4) mg/dl Phosphorus 2.2 L (2.5-4.5) mg/dL Magnesium 2.0 (1.6-2.3) mg/dL Total Bilirubin 0.4 (0.2-1.3) mg/dL AST 22 (17-59) U/L ALT 12 L D (21-72) U/L Alkaline Phosphatase 53 (38-126) U/L Total Protein 6.1 L (6.3-8.3) g/dL Albumin 3.2 L (3.5-5.0) g/dL Globulin 3.0 (2.2-3.9) gm/dL Albumin/Globulin Ratio 1.1 (1.0-2.1) Arterial Blood Potassium (3.6-5.2) mmol/L 09/24/16 09/24/16 09/24/16 Range/Units 11:26 07:48 06:29 WBC 18.8 H D (4.8-10.8) K/uL RBC 3.97 L (4.40-5.90) Mil/uL Hgb 10.1 L (12.0-18.0) g/dL Hct 31.4 L (35.0-51.0) % MCV 79.1 L (80.0-94.0) fL MCH 25.4 L (27.0-31.0) pg MCHC 32.2 L (33.0-37.0) g/dL RDW 16.8 H (11.5-14.5) % Plt Count 95 L (130-400) K/uL MPV 9.6 (7.2-11.7) fL Neut % (Auto) 89.1 H (50.0-75.0) % Lymph % (Auto) 3.3 L (20.0-40.0) % [place] % (Auto) 7.4 (0.0-10.0) % Eos % (Auto) 0.1 (0.0-4.0) % Baso % (Auto) 0.1 (0.0-2.0) % Neut # 16.8 H (1.8-7.0) K/uL Lymph # 0.6 L (1.0-4.3) K/uL [place] # 1.4 H (0.0-0.8) K/uL Eos # 0.0 (0.0-0.7) K/uL Baso # 0.0 (0.0-0.2) K/uL Neutrophils % (Manual) 78 H (50-75) % Band Neutrophils % 15 H* (0-2) % Lymphocytes % (Manual) 1 L (20-40) % Monocytes % (Manual) 6 (0-10) % Myelocytes % (0-0) % Platelet Estimate Decreased L (NORMAL) Large Platelets Present Giant Platelets Polychromasia Hypochromasia (manual) Slight Poikilocytosis (manual Slight Anisocytosis (manual) Slight Ovalocytes Slight [place] Cells Slight Puncture Site pCO2 (35-45) mm/Hg pO2 (80-100) mm/Hg HCO3 (21-28) mmol/L ABG pH (7.35-7.45) ABG Total CO2 (22-28) mmol/L ABG O2 Saturation (95-98) % ABG Base Excess (-2.0-3.0) mmol/L ABG Hemoglobin (11.7-17.4) g/dL ABG Carboxyhemoglobin (0.5-1.5) % POC ABG HHb (Measured) (0.0-5.0) % ABG Methemoglobin (0.0-3.0) % Kenneth Test ABG Potassium (3.6-5.2) mmol/L A-a O2 Difference mm/Hg Respiratory Index Hgb O2 Saturation (95.0-98.0) % Glucose (75-110) mg/dl Lactate (0.7-2.1) mmol/L Mechanical Rate FiO2 % Tidal Volume PEEP Crit Value Called To Crit Value Called By Crit Value Read Back Blood Gas Notified Time Sodium (132-148) mmol/L Potassium (3.6-5.2) mmol/L Chloride (98-107) mmol/L Carbon Dioxide (22-30) mmol/L Anion Gap (10-20) BUN (9-20) mg/dL Creatinine (0.8-1.5) MG/DL Est GFR ( Amer) Est GFR (Non-Af Amer) POC Glucose (mg/dL) 292 H 231 H (65-110) mg/dL Random Glucose (75-110) mg/dL Calcium (8.6-10.4) mg/dl Phosphorus (2.5-4.5) mg/dL Magnesium (1.6-2.3) mg/dL Total Bilirubin (0.2-1.3) mg/dL AST (17-59) U/L ALT (21-72) U/L Alkaline Phosphatase (38-126) U/L Total Protein (6.3-8.3) g/dL Albumin (3.5-5.0) g/dL Globulin (2.2-3.9) gm/dL Albumin/Globulin Ratio (1.0-2.1) Arterial Blood Potassium (3.6-5.2) mmol/L Laboratory Results - last 24 hr 09/24/16 09/24/16 09/24/16 06:29 07:48 11:26 WBC 18.8 H D RBC 3.97 L Hgb 10.1 L Hct 31.4 L MCV 79.1 L MCH 25.4 L MCHC 32.2 L RDW 16.8 H Plt Count 95 L MPV 9.6 Neut % (Auto) 89.1 H Lymph % (Auto) 3.3 L [place] % (Auto) 7.4 Eos % (Auto) 0.1 Baso % (Auto) 0.1 Neut # 16.8 H Lymph # 0.6 L [place] # 1.4 H Eos # 0.0 Baso # 0.0 Neutrophils % (Manual) 78 H Band Neutrophils % 15 H* Lymphocytes % (Manual) 1 L Monocytes % (Manual) 6 Myelocytes % Platelet Estimate Decreased L Large Platelets Present Giant Platelets Polychromasia Hypochromasia (manual) Slight Poikilocytosis (manual Slight Anisocytosis (manual) Slight Ovalocytes Slight [place] Cells Slight Puncture Site pCO2 pO2 HCO3 ABG pH ABG Total CO2 ABG O2 Saturation ABG Base Excess ABG Hemoglobin ABG Carboxyhemoglobin POC ABG HHb (Measured) ABG Methemoglobin Kenneth Test ABG Potassium A-a O2 Difference Respiratory Index Hgb O2 Saturation Glucose Lactate Mechanical Rate FiO2 Tidal Volume PEEP Crit Value Called To Crit Value Called By Crit Value Read Back Blood Gas Notified Time Sodium Potassium Chloride Carbon Dioxide Anion Gap BUN Creatinine Est GFR ( Amer) Est GFR (Non-Af Amer) POC Glucose (mg/dL) 231 H 292 H Random Glucose Calcium Phosphorus Magnesium Total Bilirubin AST ALT Alkaline Phosphatase Total Protein Albumin Globulin Albumin/Globulin Ratio Arterial Blood Potassium 09/24/16 09/24/16 09/24/16 14:07 14:07 16:25 WBC 19.2 H RBC 3.89 L Hgb 9.8 L Hct 30.8 L MCV 79.3 L MCH 25.2 L MCHC 31.8 L RDW 16.7 H Plt Count 100 L MPV 9.4 Neut % (Auto) 87.8 H Lymph % (Auto) 4.6 L [place] % (Auto) 7.3 Eos % (Auto) 0.1 Baso % (Auto) 0.2 Neut # 16.9 H Lymph # 0.9 L [place] # 1.4 H Eos # 0.0 Baso # 0.0 Neutrophils % (Manual) 76 H Band Neutrophils % 14 H* Lymphocytes % (Manual) 2 L Monocytes % (Manual) 7 Myelocytes % 1 H Platelet Estimate Decreased L Large Platelets Giant Platelets Present Polychromasia Slight Hypochromasia (manual) Slight Poikilocytosis (manual Anisocytosis (manual) Slight Ovalocytes Slight Epifanio Cells Slight Puncture Site pCO2 pO2 HCO3 ABG pH ABG Total CO2 ABG O2 Saturation ABG Base Excess ABG Hemoglobin ABG Carboxyhemoglobin POC ABG HHb (Measured) ABG Methemoglobin Kenneth Test ABG Potassium A-a O2 Difference Respiratory Index Hgb O2 Saturation Glucose Lactate Mechanical Rate FiO2 Tidal Volume PEEP Crit Value Called To Crit Value Called By Crit Value Read Back Blood Gas Notified Time Sodium 128 L Potassium 4.4 Chloride 98 Carbon Dioxide 21 L Anion Gap 13 BUN 12 Creatinine 0.7 L Est GFR ( Amer) > 60 Est GFR (Non-Af Amer) > 60 POC Glucose (mg/dL) 276 H Random Glucose 228 H Calcium 8.3 L Phosphorus 2.2 L Magnesium 2.0 Total Bilirubin 0.4 AST 22 ALT 12 L D Alkaline Phosphatase 53 Total Protein 6.1 L Albumin 3.2 L Globulin 3.0 Albumin/Globulin Ratio 1.1 Arterial Blood Potassium 09/24/16 09/24/16 09/24/16 20:20 21:29 22:33 WBC RBC Hgb Hct MCV MCH MCHC RDW Plt Count MPV Neut % (Auto) Lymph % (Auto) [place] % (Auto) Eos % (Auto) Baso % (Auto) Neut # Lymph # [place] # Eos # Baso # Neutrophils % (Manual) Band Neutrophils % Lymphocytes % (Manual) Monocytes % (Manual) Myelocytes % Platelet Estimate Large Platelets Giant Platelets Polychromasia Hypochromasia (manual) Poikilocytosis (manual Anisocytosis (manual) Ovalocytes Epifanio Cells Puncture Site Lra pCO2 20 L pO2 388 H HCO3 16.2 L ABG pH 7.37 ABG Total CO2 12.2 L ABG O2 Saturation 99.4 H ABG Base Excess -11.3 L ABG Hemoglobin ABG Carboxyhemoglobin POC ABG HHb (Measured) ABG Methemoglobin Kenneth Test Pos ABG Potassium 1.8 L* A-a O2 Difference 300.0 Respiratory Index 0.8 Hgb O2 Saturation Glucose 49 L Lactate 1.0 Mechanical Rate 18 FiO2 100.0 Tidal Volume 450 PEEP 5 Crit Value Called To Dr winston Crit Value Called By [facility] Crit Value Read Back Y Blood Gas Notified Time 2024 Sodium 148.0 131 L Potassium 3.7 Chloride 128.0 H 100 Carbon Dioxide 21 L Anion Gap 14 BUN 10 Creatinine 0.7 L Est GFR ( Amer) > 60 Est GFR (Non-Af Amer) > 60 POC Glucose (mg/dL) 84 Random Glucose 72 L Calcium 8.7 Phosphorus 2.5 Magnesium 1.7 Total Bilirubin AST ALT Alkaline Phosphatase Total Protein Albumin Globulin Albumin/Globulin Ratio Arterial Blood Potassium 1.8 L* 09/25/16 09/25/16 09/25/16 04:15 06:24 07:20 WBC 12.6 H RBC 3.47 L Hgb 9.4 L Hct 27.2 L MCV 78.2 L MCH 26.9 L MCHC 34.4 RDW 16.4 H Plt Count 111 L MPV 11.1 Neut % (Auto) 85.9 H Lymph % (Auto) 5.6 L [place] % (Auto) 7.9 Eos % (Auto) 0.2 Baso % (Auto) 0.4 Neut # 10.8 H Lymph # 0.7 L [place] # 1.0 H Eos # 0.0 Baso # 0.1 Neutrophils % (Manual) Band Neutrophils % Lymphocytes % (Manual) Monocytes % (Manual) Myelocytes % Platelet Estimate Large Platelets Giant Platelets Polychromasia Hypochromasia (manual) Poikilocytosis (manual Anisocytosis (manual) Ovalocytes [place] Cells Puncture Site Lb pCO2 34 L pO2 121 H HCO3 24.9 ABG pH 7.45 ABG Total CO2 24.6 ABG O2 Saturation 98.5 H ABG Base Excess -0.1 ABG Hemoglobin 9.9 L ABG Carboxyhemoglobin 0.9 POC ABG HHb (Measured) 1.5 ABG Methemoglobin 1.0 Kenneth Test Na ABG Potassium A-a O2 Difference 50.0 Respiratory Index 0.4 Hgb O2 Saturation 96.6 Glucose Lactate Mechanical Rate 12 FiO2 30.0 Tidal Volume 450 PEEP 5 Crit Value Called To Crit Value Called By Crit Value Read Back Blood Gas Notified Time Sodium Potassium Chloride Carbon Dioxide Anion Gap BUN Creatinine Est GFR ( Amer) Est GFR (Non-Af Amer) POC Glucose (mg/dL) 166 H Random Glucose Calcium Phosphorus Magnesium Total Bilirubin AST ALT Alkaline Phosphatase Total Protein Albumin Globulin Albumin/Globulin Ratio Arterial Blood Potassium Fingerstick Blood Sugar Results: 231 Review of Systems - Review of Systems Systems not reviewed;Unavailable: Intubated Critical Care Progress Note - Nutrition Nutrition: Nutrition Category Date Time Status Diabetic [Consistent Carbohydrate] [DIET] Diets 09/23/16 Breakfast Active Assessment/Plan - Assessment and Plan (Free Text) Assessment: 71 year old male, with PMHx of urinary retention and hematuria, with recent discharge from [facility] for similar symptoms. Positive urine and blood cultures. Acute respiratory failure on 09/24, and pt intubated. Plan: Pt status: Transferred to [facility], but acute respiratory failure overnight led to readmission to ICU Neuro: Pt intubated - Propofol Drip - will attempt to wean today Pulm: Acute respiratory failure Pt intubated, on MV Vent settings: FiO2: 30%, TV 450, RR 12, PEEP 5 CXR (09/25/16): Lungs clear. No evidence of Pulm Edema, infiltrate (wet read, f/u official) - f/u ECHO, pro-BNP, pro-calcitonin, D-dimer Asthma - Duoneb Q6H TISH - Solu-medrol 60mg IV Q8H Cough - Phenergan 12.5mg PO Q6H CV: Hyperlipidemia Simvastatin 20mg PO HS /Renal Sepsis believed secondary to skilled nursing indwelling catheter (pt had shields, on d/c but did not f/u for removal w urology) - Shields catheter discontinued in ER - During previous admission patient had Beta hemolytic group B strep in Urine culture UA (09/23/16): Protein 2+, Blood 2+, LE 3+, WBC 515, RBC 67, Bacteria Occasional Urine culture (09/22/16): Gram negative Raimundo, awaiting sensitivities Received zosyn and Vancomycin in Er Urology consult: Dr. Sanz, help appreciated - IV antibiotics - eventually d/c on oral antibiotics, Flomax - f/u in office in 2 weeks Hx of BPH continue home Flomax 0.4mg PO Daily Hypernatremia - resolved, 133 this AM Hypokalemia - resolved, 3.9 on AM lab Hypomagnesemia - 1.4 on AM labs, repleted Hypophosphatemia - HOLD neutra-phos, pt intubated Monitor I/Os - 6L of urine output yesterday MSKLTL: Rheumatoid arthritis on meds - pt will bring home Xeljanz XR to verify ENDO: T2DM BG elevated but downtrending Lantus 10 units SC HS ISS - medium HOLD home Metformin 1000mg PO BID, and Glipizide 5mg PO Daily GI: Diabetic Diet AST/ALT/Alk Phos: WNL ID: Sepsis (Criteria: Febrile, Tachy, Tachynpeic on admission) believed secondary to 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 bandemia improving UA (09/23/16): Protein 2+, Blood 2+, LE 3+, WBC 515, RBC 67, Bacteria Occasional Urine culture (09/22/16): Gram negative Raimundo, awaiting sensitivities Blood Culture (09/22/16): E. coli x1 (Anaerobic bottle only), most sensitive to Primaxin ID consult: Dr. Gallardo, help appreciated - Primaxin 500mg IV Q6H (start 09/23/16) - Amikacin 500mg IV Q24H (start 09/24/16, 3 doses, end date of 09/26/16) - Vancomycin Discontinued NS @ 150cc/hr Discontinued Prophylaxis: Pepcid 20mg PO BID Lovenox 40mg SC Daily SCDs <Anh Saeedudhry S - Last Filed: 09/25/16 18:44> CCU Objective - Vital Signs / Intake & Output Vital Signs (Last 4 hours): Vital Signs Temp Pulse Resp BP Pulse Ox 09/25/16 18:00 95 H 22 70 L 09/25/16 17:01 64 18 137/72 100 09/25/16 17:00 62 23 100 09/25/16 16:01 70 14 153/75 H 99 09/25/16 16:00 973.4 F H 68 15 139/79 99 09/25/16 15:01 75 22 139/79 98 09/25/16 15:00 72 20 99 09/25/16 14:59 69 21 99 Intake and Output (Last 8hrs): Intake & Output 09/25/16 09/25/16 09/25/16 06:59 14:59 22:59 Intake Total 516.4 26.7 685 Output Total 2650 1855 700 Balance -2133.6 -1828.3 -15 Intake: IV 190 0 Intake, IV Amount 326.4 26.7 Right Forearm 326.4 26.7 Oral 0 0 685 Output: Urine 2650 1855 700 Urine, Voided 2650 1855 700 Other: # Bowel Movements 1 - Medications Active Medications: Active Medications Generic Name Dose Route Start Last Admin Trade Name Freq PRN Reason Stop Dose Admin Albuterol/Ipratropium 3 ml 09/24/16 14:00 09/25/16 13:12 Duoneb 3 Mg/0.5 Mg (3 Ml) Ud INH 3 ml RQ6 TISH Administration Enoxaparin Sodium 40 mg 09/23/16 10:00 09/25/16 10:00 Lovenox SC 40 mg DAILY TISH Administration Famotidine 20 mg 09/23/16 10:00 09/25/16 17:10 Pepcid PO 20 mg BID TISH Administration Imipenem/Cilastatin Sodium 500 100 mls @ 100 mls/hr 09/23/16 10:30 09/25/16 15:48 mg/ Sodium Chloride IVPB 100 mls/hr Q6H TISH Administration Amikacin Sulfate 500 mg/ 252 mls @ 250 mls/hr 09/24/16 13:00 09/25/16 12:34 Sodium Chloride IVPB 09/26/16 13:01 250 mls/hr Q24H TISH Administration Propofol 1,000 mg in 100 mls @ 3.565 mls/hr 09/24/16 19:45 09/25/16 10:30 Diprivan IV 0 mcg/kg/min .Q24H PRN 0 mls/hr TITRATE PER MD ORDER Titration Protocol 10 MCG/KG/MIN Insulin Glargine 10 unit 09/24/16 22:00 09/24/16 22:56 Lantus SC Not Given HS TISH Insulin Human Regular 0 unit 09/23/16 16:19 09/25/16 16:33 Novolin R SC 4 unit ACHS TISH Administration Protocol Methylprednisolone 60 mg 09/24/16 20:00 09/25/16 11:30 Solu-Medrol IVP 60 mg Q8H TISH Administration Potassium Phos/Sodium Phos 1 pkt 09/23/16 21:00 09/25/16 12:40 Neutra-Phos PO 1 pkt Q8H TISH Administration Promethazine HCl 12.5 mg 09/24/16 17:04 09/24/16 17:21 Phenergan Syrup PO 12.5 mg Q6 PRN Administration Cough Rosuvastatin Calcium 5 mg 09/24/16 22:00 09/24/16 22:55 Crestor PO Not Given HS TISH Tamsulosin HCl 0.4 mg 09/23/16 10:00 09/25/16 10:00 Flomax PO 0.4 mg DAILY TISH Administration - Patient Studies Lab Studies: Lab Studies 09/25/16 09/25/16 09/25/16 Range/Units 15:42 11:37 09:32 WBC (4.8-10.8) K/uL RBC (4.40-5.90) Mil/uL Hgb (12.0-18.0) g/dL Hct (35.0-51.0) % MCV (80.0-94.0) fL MCH (27.0-31.0) pg MCHC (33.0-37.0) g/dL RDW (11.5-14.5) % Plt Count (130-400) K/uL MPV (7.2-11.7) fL Neut % (Auto) (50.0-75.0) % Lymph % (Auto) (20.0-40.0) % [place] % (Auto) (0.0-10.0) % Eos % (Auto) (0.0-4.0) % Baso % (Auto) (0.0-2.0) % Neut # (1.8-7.0) K/uL Lymph # (1.0-4.3) K/uL [place] # (0.0-0.8) K/uL Eos # (0.0-0.7) K/uL Baso # (0.0-0.2) K/uL Neutrophils % (Manual) (50-75) % Band Neutrophils % (0-2) % Lymphocytes % (Manual) (20-40) % Monocytes % (Manual) (0-10) % Nucleated RBC % (0-0) % Platelet Estimate (NORMAL) Hypochromasia (manual) Poikilocytosis (manual Anisocytosis (manual) Microcytosis (manual) [place] Cells D-Dimer, Quantitative 991 H (0-243) ng/mlDDU Puncture Site pCO2 (35-45) mm/Hg pO2 (80-100) mm/Hg HCO3 (21-28) mmol/L ABG pH (7.35-7.45) ABG Total CO2 (22-28) mmol/L ABG O2 Saturation (95-98) % ABG Base Excess (-2.0-3.0) mmol/L ABG Hemoglobin (11.7-17.4) g/dL ABG Carboxyhemoglobin (0.5-1.5) % POC ABG HHb (Measured) (0.0-5.0) % ABG Methemoglobin (0.0-3.0) % Kenneth Test ABG Potassium (3.6-5.2) mmol/L A-a O2 Difference mm/Hg Respiratory Index Hgb O2 Saturation (95.0-98.0) % Sodium (132-148) mmol/l Chloride (98-107) mmol/L Glucose (75-110) mg/dl Lactate (0.7-2.1) mmol/L Mechanical Rate FiO2 % Tidal Volume PEEP Crit Value Called To Crit Value Called By Crit Value Read Back Blood Gas Notified Time Potassium (3.6-5.2) mmol/L Carbon Dioxide (22-30) mmol/L Anion Gap (10-20) BUN (9-20) mg/dL Creatinine (0.8-1.5) MG/DL Est GFR ( Amer) Est GFR (Non-Af Amer) POC Glucose (mg/dL) 265 H 317 H (65-110) mg/dL Random Glucose (75-110) mg/dL Calcium (8.6-10.4) mg/dl Phosphorus (2.5-4.5) mg/dL Magnesium (1.6-2.3) mg/dL Total Bilirubin (0.2-1.3) mg/dL AST (17-59) U/L ALT (21-72) U/L Alkaline Phosphatase (38-126) U/L NT-Pro-B Natriuret Pep (0-900) pg/mL Total Protein (6.3-8.3) g/dL Albumin (3.5-5.0) g/dL Globulin (2.2-3.9) gm/dL Albumin/Globulin Ratio (1.0-2.1) Procalcitonin (0.19-0.49) NG/ML Arterial Blood Potassium (3.6-5.2) mmol/L 09/25/16 09/25/16 09/25/16 Range/Units 09:32 07:57 07:20 WBC (4.8-10.8) K/uL RBC (4.40-5.90) Mil/uL Hgb (12.0-18.0) g/dL Hct (35.0-51.0) % MCV (80.0-94.0) fL MCH (27.0-31.0) pg MCHC (33.0-37.0) g/dL RDW (11.5-14.5) % Plt Count (130-400) K/uL MPV (7.2-11.7) fL Neut % (Auto) (50.0-75.0) % Lymph % (Auto) (20.0-40.0) % [place] % (Auto) (0.0-10.0) % Eos % (Auto) (0.0-4.0) % Baso % (Auto) (0.0-2.0) % Neut # (1.8-7.0) K/uL Lymph # (1.0-4.3) K/uL [place] # (0.0-0.8) K/uL Eos # (0.0-0.7) K/uL Baso # (0.0-0.2) K/uL Neutrophils % (Manual) (50-75) % Band Neutrophils % (0-2) % Lymphocytes % (Manual) (20-40) % Monocytes % (Manual) (0-10) % Nucleated RBC % (0-0) % Platelet Estimate (NORMAL) Hypochromasia (manual) Poikilocytosis (manual Anisocytosis (manual) Microcytosis (manual) Epifanio Cells D-Dimer, Quantitative (0-243) ng/mlDDU Puncture Site pCO2 (35-45) mm/Hg pO2 (80-100) mm/Hg HCO3 (21-28) mmol/L ABG pH (7.35-7.45) ABG Total CO2 (22-28) mmol/L ABG O2 Saturation (95-98) % ABG Base Excess (-2.0-3.0) mmol/L ABG Hemoglobin (11.7-17.4) g/dL ABG Carboxyhemoglobin (0.5-1.5) % POC ABG HHb (Measured) (0.0-5.0) % ABG Methemoglobin (0.0-3.0) % Kenneth Test ABG Potassium (3.6-5.2) mmol/L A-a O2 Difference mm/Hg Respiratory Index Hgb O2 Saturation (95.0-98.0) % Sodium 133 (132-148) mmol/l Chloride 99 (98-107) mmol/L Glucose (75-110) mg/dl Lactate (0.7-2.1) mmol/L Mechanical Rate FiO2 % Tidal Volume PEEP Crit Value Called To Crit Value Called By Crit Value Read Back Blood Gas Notified Time Potassium 3.9 (3.6-5.2) mmol/L Carbon Dioxide 24 (22-30) mmol/L Anion Gap 13 (10-20) BUN 10 (9-20) mg/dL Creatinine 0.7 L (0.8-1.5) MG/DL Est GFR ( Amer) > 60 Est GFR (Non-Af Amer) > 60 POC Glucose (mg/dL) 166 H (65-110) mg/dL Random Glucose 151 H (75-110) mg/dL Calcium 8.9 (8.6-10.4) mg/dl Phosphorus 3.0 (2.5-4.5) mg/dL Magnesium 1.4 L (1.6-2.3) mg/dL Total Bilirubin 0.5 (0.2-1.3) mg/dL AST 25 (17-59) U/L ALT 28 (21-72) U/L Alkaline Phosphatase 52 (38-126) U/L NT-Pro-B Natriuret Pep 1580 H (0-900) pg/mL Total Protein 6.5 (6.3-8.3) g/dL Albumin 3.3 L (3.5-5.0) g/dL Globulin 3.2 (2.2-3.9) gm/dL Albumin/Globulin Ratio 1.0 (1.0-2.1) Procalcitonin 3.91 H (0.19-0.49) NG/ML Arterial Blood Potassium (3.6-5.2) mmol/L 09/25/16 09/25/16 09/24/16 Range/Units 06:24 04:15 22:33 WBC 12.6 H (4.8-10.8) K/uL RBC 3.47 L (4.40-5.90) Mil/uL Hgb 9.4 L (12.0-18.0) g/dL Hct 27.2 L (35.0-51.0) % MCV 78.2 L (80.0-94.0) fL MCH 26.9 L (27.0-31.0) pg MCHC 34.4 (33.0-37.0) g/dL RDW 16.4 H (11.5-14.5) % Plt Count 111 L (130-400) K/uL MPV 11.1 (7.2-11.7) fL Neut % (Auto) 85.9 H (50.0-75.0) % Lymph % (Auto) 5.6 L (20.0-40.0) % [place] % (Auto) 7.9 (0.0-10.0) % Eos % (Auto) 0.2 (0.0-4.0) % Baso % (Auto) 0.4 (0.0-2.0) % Neut # 10.8 H (1.8-7.0) K/uL Lymph # 0.7 L (1.0-4.3) K/uL [place] # 1.0 H (0.0-0.8) K/uL Eos # 0.0 (0.0-0.7) K/uL Baso # 0.1 (0.0-0.2) K/uL Neutrophils % (Manual) 82 H (50-75) % Band Neutrophils % 8 H (0-2) % Lymphocytes % (Manual) 9 L (20-40) % Monocytes % (Manual) 1 (0-10) % Nucleated RBC % 1 H (0-0) % Platelet Estimate Slightly decreased L (NORMAL) Hypochromasia (manual) Slight Poikilocytosis (manual Slight Anisocytosis (manual) Slight Microcytosis (manual) Slight Epifanio Cells Slight D-Dimer, Quantitative (0-243) ng/mlDDU Puncture Site Lb pCO2 34 L (35-45) mm/Hg pO2 121 H (80-100) mm/Hg HCO3 24.9 (21-28) mmol/L ABG pH 7.45 (7.35-7.45) ABG Total CO2 24.6 (22-28) mmol/L ABG O2 Saturation 98.5 H (95-98) % ABG Base Excess -0.1 (-2.0-3.0) mmol/L ABG Hemoglobin 9.9 L (11.7-17.4) g/dL ABG Carboxyhemoglobin 0.9 (0.5-1.5) % POC ABG HHb (Measured) 1.5 (0.0-5.0) % ABG Methemoglobin 1.0 (0.0-3.0) % Kenneth Test Na ABG Potassium (3.6-5.2) mmol/L A-a O2 Difference 50.0 mm/Hg Respiratory Index 0.4 Hgb O2 Saturation 96.6 (95.0-98.0) % Sodium 131 L (132-148) mmol/l Chloride 100 (98-107) mmol/L Glucose (75-110) mg/dl Lactate (0.7-2.1) mmol/L Mechanical Rate 12 FiO2 30.0 % Tidal Volume 450 PEEP 5 Crit Value Called To Crit Value Called By Crit Value Read Back Blood Gas Notified Time Potassium 3.7 (3.6-5.2) mmol/L Carbon Dioxide 21 L (22-30) mmol/L Anion Gap 14 (10-20) BUN 10 (9-20) mg/dL Creatinine 0.7 L (0.8-1.5) MG/DL Est GFR ( Amer) > 60 Est GFR (Non-Af Amer) > 60 POC Glucose (mg/dL) (65-110) mg/dL Random Glucose 72 L (75-110) mg/dL Calcium 8.7 (8.6-10.4) mg/dl Phosphorus 2.5 (2.5-4.5) mg/dL Magnesium 1.7 (1.6-2.3) mg/dL Total Bilirubin (0.2-1.3) mg/dL AST (17-59) U/L ALT (21-72) U/L Alkaline Phosphatase (38-126) U/L NT-Pro-B Natriuret Pep (0-900) pg/mL Total Protein (6.3-8.3) g/dL Albumin (3.5-5.0) g/dL Globulin (2.2-3.9) gm/dL Albumin/Globulin Ratio (1.0-2.1) Procalcitonin (0.19-0.49) NG/ML Arterial Blood Potassium (3.6-5.2) mmol/L 09/24/16 09/24/16 Range/Units 21:29 20:20 WBC (4.8-10.8) K/uL RBC (4.40-5.90) Mil/uL Hgb (12.0-18.0) g/dL Hct (35.0-51.0) % MCV (80.0-94.0) fL MCH (27.0-31.0) pg MCHC (33.0-37.0) g/dL RDW (11.5-14.5) % Plt Count (130-400) K/uL MPV (7.2-11.7) fL Neut % (Auto) (50.0-75.0) % Lymph % (Auto) (20.0-40.0) % [place] % (Auto) (0.0-10.0) % Eos % (Auto) (0.0-4.0) % Baso % (Auto) (0.0-2.0) % Neut # (1.8-7.0) K/uL Lymph # (1.0-4.3) K/uL [place] # (0.0-0.8) K/uL Eos # (0.0-0.7) K/uL Baso # (0.0-0.2) K/uL Neutrophils % (Manual) (50-75) % Band Neutrophils % (0-2) % Lymphocytes % (Manual) (20-40) % Monocytes % (Manual) (0-10) % Nucleated RBC % (0-0) % Platelet Estimate (NORMAL) Hypochromasia (manual) Poikilocytosis (manual Anisocytosis (manual) Microcytosis (manual) [place] Cells D-Dimer, Quantitative (0-243) ng/mlDDU Puncture Site Lra pCO2 20 L (35-45) mm/Hg pO2 388 H (80-100) mm/Hg HCO3 16.2 L (21-28) mmol/L ABG pH 7.37 (7.35-7.45) ABG Total CO2 12.2 L (22-28) mmol/L ABG O2 Saturation 99.4 H (95-98) % ABG Base Excess -11.3 L (-2.0-3.0) mmol/L ABG Hemoglobin (11.7-17.4) g/dL ABG Carboxyhemoglobin (0.5-1.5) % POC ABG HHb (Measured) (0.0-5.0) % ABG Methemoglobin (0.0-3.0) % Kenneth Test Pos ABG Potassium 1.8 L* (3.6-5.2) mmol/L A-a O2 Difference 300.0 mm/Hg Respiratory Index 0.8 Hgb O2 Saturation (95.0-98.0) % Sodium 148.0 (132-148) mmol/l Chloride 128.0 H (98-107) mmol/L Glucose 49 L (75-110) mg/dl Lactate 1.0 (0.7-2.1) mmol/L Mechanical Rate 18 FiO2 100.0 % Tidal Volume 450 PEEP 5 Crit Value Called To Dr winston Crit Value Called By [facility] Crit Value Read Back Y Blood Gas Notified Time 2024 Potassium (3.6-5.2) mmol/L Carbon Dioxide (22-30) mmol/L Anion Gap (10-20) BUN (9-20) mg/dL Creatinine (0.8-1.5) MG/DL Est GFR ( Amer) Est GFR (Non-Af Amer) POC Glucose (mg/dL) 84 (65-110) mg/dL Random Glucose (75-110) mg/dL Calcium (8.6-10.4) mg/dl Phosphorus (2.5-4.5) mg/dL Magnesium (1.6-2.3) mg/dL Total Bilirubin (0.2-1.3) mg/dL AST (17-59) U/L ALT (21-72) U/L Alkaline Phosphatase (38-126) U/L NT-Pro-B Natriuret Pep (0-900) pg/mL Total Protein (6.3-8.3) g/dL Albumin (3.5-5.0) g/dL Globulin (2.2-3.9) gm/dL Albumin/Globulin Ratio (1.0-2.1) Procalcitonin (0.19-0.49) NG/ML Arterial Blood Potassium 1.8 L* (3.6-5.2) mmol/L Laboratory Results - last 24 hr 09/24/16 09/24/16 09/24/16 20:20 21:29 22:33 WBC RBC Hgb Hct MCV MCH MCHC RDW Plt Count MPV Neut % (Auto) Lymph % (Auto) [place] % (Auto) Eos % (Auto) Baso % (Auto) Neut # Lymph # [place] # Eos # Baso # Neutrophils % (Manual) Band Neutrophils % Lymphocytes % (Manual) Monocytes % (Manual) Nucleated RBC % Platelet Estimate Hypochromasia (manual) Poikilocytosis (manual Anisocytosis (manual) Microcytosis (manual) Epifanio Cells D-Dimer, Quantitative Puncture Site Lra pCO2 20 L pO2 388 H HCO3 16.2 L ABG pH 7.37 ABG Total CO2 12.2 L ABG O2 Saturation 99.4 H ABG Base Excess -11.3 L ABG Hemoglobin ABG Carboxyhemoglobin POC ABG HHb (Measured) ABG Methemoglobin Kenneth Test Pos ABG Potassium 1.8 L* A-a O2 Difference 300.0 Respiratory Index 0.8 Hgb O2 Saturation Sodium 148.0 131 L Chloride 128.0 H 100 Glucose 49 L Lactate 1.0 Mechanical Rate 18 FiO2 100.0 Tidal Volume 450 PEEP 5 Crit Value Called To Dr winston Crit Value Called By [facility] Crit Value Read Back Y Blood Gas Notified Time 2024 Potassium 3.7 Carbon Dioxide 21 L Anion Gap 14 BUN 10 Creatinine 0.7 L Est GFR ( Amer) > 60 Est GFR (Non-Af Amer) > 60 POC Glucose (mg/dL) 84 Random Glucose 72 L Calcium 8.7 Phosphorus 2.5 Magnesium 1.7 Total Bilirubin AST ALT Alkaline Phosphatase NT-Pro-B Natriuret Pep Total Protein Albumin Globulin Albumin/Globulin Ratio Procalcitonin Arterial Blood Potassium 1.8 L* 09/25/16 09/25/16 09/25/16 04:15 06:24 07:20 WBC 12.6 H RBC 3.47 L Hgb 9.4 L Hct 27.2 L MCV 78.2 L MCH 26.9 L MCHC 34.4 RDW 16.4 H Plt Count 111 L MPV 11.1 Neut % (Auto) 85.9 H Lymph % (Auto) 5.6 L [place] % (Auto) 7.9 Eos % (Auto) 0.2 Baso % (Auto) 0.4 Neut # 10.8 H Lymph # 0.7 L [place] # 1.0 H Eos # 0.0 Baso # 0.1 Neutrophils % (Manual) 82 H Band Neutrophils % 8 H Lymphocytes % (Manual) 9 L Monocytes % (Manual) 1 Nucleated RBC % 1 H Platelet Estimate Slightly decreased L Hypochromasia (manual) Slight Poikilocytosis (manual Slight Anisocytosis (manual) Slight Microcytosis (manual) Slight [place] Cells Slight D-Dimer, Quantitative Puncture Site Lb pCO2 34 L pO2 121 H HCO3 24.9 ABG pH 7.45 ABG Total CO2 24.6 ABG O2 Saturation 98.5 H ABG Base Excess -0.1 ABG Hemoglobin 9.9 L ABG Carboxyhemoglobin 0.9 POC ABG HHb (Measured) 1.5 ABG Methemoglobin 1.0 Kenneth Test Na ABG Potassium A-a O2 Difference 50.0 Respiratory Index 0.4 Hgb O2 Saturation 96.6 Sodium Chloride Glucose Lactate Mechanical Rate 12 FiO2 30.0 Tidal Volume 450 PEEP 5 Crit Value Called To Crit Value Called By Crit Value Read Back Blood Gas Notified Time Potassium Carbon Dioxide Anion Gap BUN Creatinine Est GFR ( Amer) Est GFR (Non-Af Amer) POC Glucose (mg/dL) 166 H Random Glucose Calcium Phosphorus Magnesium Total Bilirubin AST ALT Alkaline Phosphatase NT-Pro-B Natriuret Pep Total Protein Albumin Globulin Albumin/Globulin Ratio Procalcitonin Arterial Blood Potassium 09/25/16 09/25/16 09/25/16 07:57 09:32 09:32 WBC RBC Hgb Hct MCV MCH MCHC RDW Plt Count MPV Neut % (Auto) Lymph % (Auto) [place] % (Auto) Eos % (Auto) Baso % (Auto) Neut # Lymph # [place] # Eos # Baso # Neutrophils % (Manual) Band Neutrophils % Lymphocytes % (Manual) Monocytes % (Manual) Nucleated RBC % Platelet Estimate Hypochromasia (manual) Poikilocytosis (manual Anisocytosis (manual) Microcytosis (manual) Epifanio Cells D-Dimer, Quantitative 991 H Puncture Site pCO2 pO2 HCO3 ABG pH ABG Total CO2 ABG O2 Saturation ABG Base Excess ABG Hemoglobin ABG Carboxyhemoglobin POC ABG HHb (Measured) ABG Methemoglobin Kenneth Test ABG Potassium A-a O2 Difference Respiratory Index Hgb O2 Saturation Sodium 133 Chloride 99 Glucose Lactate Mechanical Rate FiO2 Tidal Volume PEEP Crit Value Called To Crit Value Called By Crit Value Read Back Blood Gas Notified Time Potassium 3.9 Carbon Dioxide 24 Anion Gap 13 BUN 10 Creatinine 0.7 L Est GFR ( Amer) > 60 Est GFR (Non-Af Amer) > 60 POC Glucose (mg/dL) Random Glucose 151 H Calcium 8.9 Phosphorus 3.0 Magnesium 1.4 L Total Bilirubin 0.5 AST 25 ALT 28 Alkaline Phosphatase 52 NT-Pro-B Natriuret Pep 1580 H Total Protein 6.5 Albumin 3.3 L Globulin 3.2 Albumin/Globulin Ratio 1.0 Procalcitonin 3.91 H Arterial Blood Potassium 09/25/16 09/25/16 11:37 15:42 WBC RBC Hgb Hct MCV MCH MCHC RDW Plt Count MPV Neut % (Auto) Lymph % (Auto) [place] % (Auto) Eos % (Auto) Baso % (Auto) Neut # Lymph # [place] # Eos # Baso # Neutrophils % (Manual) Band Neutrophils % Lymphocytes % (Manual) Monocytes % (Manual) Nucleated RBC % Platelet Estimate Hypochromasia (manual) Poikilocytosis (manual Anisocytosis (manual) Microcytosis (manual) [place] Cells D-Dimer, Quantitative Puncture Site pCO2 pO2 HCO3 ABG pH ABG Total CO2 ABG O2 Saturation ABG Base Excess ABG Hemoglobin ABG Carboxyhemoglobin POC ABG HHb (Measured) ABG Methemoglobin Kenneth Test ABG Potassium A-a O2 Difference Respiratory Index Hgb O2 Saturation Sodium Chloride Glucose Lactate Mechanical Rate FiO2 Tidal Volume PEEP Crit Value Called To Crit Value Called By Crit Value Read Back Blood Gas Notified Time Potassium Carbon Dioxide Anion Gap BUN Creatinine Est GFR ( Amer) Est GFR (Non-Af Amer) POC Glucose (mg/dL) 317 H 265 H Random Glucose Calcium Phosphorus Magnesium Total Bilirubin AST ALT Alkaline Phosphatase NT-Pro-B Natriuret Pep Total Protein Albumin Globulin Albumin/Globulin Ratio Procalcitonin Arterial Blood Potassium Critical Care Progress Note - Nutrition Nutrition: Nutrition Category Date Time Status Liquid Diet [DIET] Diets 09/25/16 Dinner Active Attending/Attestation - Attestation I have personally seen and examined this patient.: Yes I have fully participated in the care of the patient.: Yes I have reviewed all pertinent clinical information: Yes Notes (Text): 09/25/16 18:44 Patient seen and examined in the intensive care unit. Case discussed with staff in the morning rounds. Extubated after weaning trial Started on IV steroids, nebulizer treatment For CT angiogram to rule out pulmonary embolism Echocardiogram showed normal LV function Continue present treatment
[2016-09-25 08:20] LABS: CHLORIDE 99 mmol/L (98-107); SODIUM 133 mmol/L (132-148)
[2016-09-25 08:21] LABS: POTASSIUM 3.9 mmol/L (3.6-5.2)
[2016-09-25 08:22] LABS: GFR AFRICAN-AMERICAN > 60
[2016-09-25 08:23] LABS: ALKALINE PHOSPHATASE 52 U/L (38-126); ALT/SGPT 28 U/L (21-72); AST/SGOT 25 U/L (17-59); BILIRUBIN,TOTAL 0.5 mg/dL (0.2-1.3); BLOOD UREA NITROGEN 10 mg/dL (9-20); CARBON DIOXIDE 24 mmol/L (22-30); GLUCOSE,RANDOM 151 mg/dL (75-110); TOTAL PROTEIN 6.5 g/dL (6.3-8.3)
[2016-09-25 08:24] LABS: CALCIUM 8.9 mg/dl (8.6-10.4); MAGNESIUM 1.4 mg/dL (1.6-2.3)
[2016-09-25 08:42] LABS: NEUTROPHIL 82 % (50-75); NUCLEATED RED BLOOD CELL 1 % (0-0); TOTAL CELLS COUNTED 100
[2016-09-25] MEDS: (Novolin R) Insulin Human Regular 100 units/ml vial SC SCH ×4 (08:49→22:11)
--- NOTE | 2016-09-25 09:56 | RAD ---
HISTORY: intubation COMPARISON: 09/23/2016 FINDINGS: LUNGS: No active pulmonary disease. PLEURA: No significant pleural effusion identified, no pneumothorax apparent. CARDIOVASCULAR: Normal. OSSEOUS STRUCTURES: No significant abnormalities. VISUALIZED UPPER ABDOMEN: Normal. OTHER FINDINGS: None. IMPRESSION: Endotracheal tube and nasogastric tube in satisfactory position
[2016-09-25] MEDS ORDERED: Pneumococcal 23-Valent Vaccine IM ONE (10:00)
[2016-09-25] MEDS: Enoxaparin 40 mg Syringe SC SCH (10:00)
[2016-09-25] MEDS: Amikacin Sulfate 500 MG in Sodium Chloride 0.9% 250 ML IVPB SCH (12:34)
--- NOTE | 2016-09-25 13:26 | CP.PCM.PN ---
Subjective - Date & Time of Evaluation Date of Evaluation: 09/25/16 Time of Evaluation: 13:25 - Subjective Subjective: OVERNITE GOT DESATURATED AND ULTIMATELY GOT INTUBATED D.DIMER HIGH MILD ELEVATION OF BNP CXR PEND CHECK ECHO WILL NEED CT ANGIO FOR PE Objective - Vital Signs/Intake and Output Vital Signs (last 24 hours): Temp Pulse Resp BP Pulse Ox 97.6 F 81 15 136/72 99 09/25/16 08:00 09/25/16 08:00 09/25/16 08:00 09/25/16 08:00 09/25/16 08:00 Intake and Output: 09/25/16 09/25/16 11:59 23:59 Intake Total 337.3 Output Total 4080 Balance -3742.7 - Medications Medications: Current Medications Albuterol/Ipratropium (Duoneb 3 Mg/0.5 Mg (3 Ml) Ud) 3 ml INH RQ6 [facility] Last Admin: 09/25/16 13:12 Dose: 3 ml Enoxaparin Sodium (Lovenox) 40 mg SC DAILY [facility] Last Admin: 09/25/16 10:00 Dose: 40 mg Famotidine (Pepcid) 20 mg PO BID [facility] Last Admin: 09/25/16 10:00 Dose: 20 mg Imipenem/Cilastatin Sodium 500 (mg/ Sodium Chloride) 100 mls @ 100 mls/hr IVPB Q6H [facility] Last Admin: 09/25/16 10:32 Dose: 100 mls/hr Amikacin Sulfate 500 mg/ (Sodium Chloride) 252 mls @ 250 mls/hr IVPB Q24H [facility] Stop: 09/26/16 13:01 Last Admin: 09/25/16 12:34 Dose: 250 mls/hr Propofol (Diprivan) 1,000 mg in 100 mls @ 3.565 mls/hr IV .Q24H PRN; Protocol; 10 MCG/KG/MIN PRN Reason: TITRATE PER MD ORDER Last Titration: 09/25/16 10:30 Dose: 0 mcg/kg/min, 0 mls/hr Insulin Glargine (Lantus) 10 unit SC HS [facility] Last Admin: 09/24/16 22:56 Dose: Not Given Insulin Human Regular (Novolin R) 0 unit SC [facility] PRN Reason: Protocol Last Admin: 09/25/16 12:36 Dose: 6 unit Methylprednisolone (Solu-Medrol) 60 mg IVP Q8H [facility] Last Admin: 09/25/16 11:30 Dose: 60 mg Potassium Phos/Sodium Phos (Neutra-Phos) 1 pkt PO Q8H [facility] Last Admin: 09/25/16 12:40 Dose: 1 pkt Promethazine HCl (Phenergan Syrup) 12.5 mg PO Q6 PRN PRN Reason: Cough Last Admin: 09/24/16 17:21 Dose: 12.5 mg Rosuvastatin Calcium (Crestor) 5 mg PO HS [facility] Last Admin: 09/24/16 22:55 Dose: Not Given Tamsulosin HCl (Flomax) 0.4 mg PO DAILY [facility] Last Admin: 09/25/16 10:00 Dose: 0.4 mg - Labs Labs: 09/25/16 06:24 09/25/16 07:57 PT 15.6 SECONDS (9.7-12.2) H 09/22/16 23:14 INR 1.4 09/22/16 23:14 APTT 26 SECONDS (21-34) 09/22/16 23:14
--- NOTE | 2016-09-25 14:21 | RAD ---
HISTORY: intubated COMPARISON: Chest x-ray performed 09/24/16 TECHNIQUE: Chest, one view. FINDINGS: Endotracheal tube and nasogastric tube re-identified in satisfactory position. LUNGS: No focal consolidation. Please note that chest x-ray has limited sensitivity for the detection of pulmonary masses. PLEURA: No significant pleural effusion identified. No definite pneumothorax . CARDIOVASCULAR: The cardiomediastinal silhouette appears within normal limits of size. OSSEOUS STRUCTURES: No acute osseous abnormality identified. VISUALIZED UPPER ABDOMEN: Unremarkable. OTHER FINDINGS: None. IMPRESSION: Endotracheal tube. Nasogastric tube.
[2016-09-25] MEDS ORDERED: Iodixanol 320 MG/ML 100 ML BOTTLE IV ONE (16:52)
--- NOTE | 2016-09-25 21:05 | CT ---
EXAM: CT Angiography Chest With Intravenous Contrast CLINICAL HISTORY: 71 years old, male; Condition or disease; Lung condition and disease; Airway obstruction and pulmonary embolism; Attributes not specified; Type not specified; Additional info: R/O pe TECHNIQUE: Axial computed tomographic angiography images of the chest with intravenous contrast using pulmonary embolism protocol. This CT exam was performed using one or more of the following dose reduction techniques: automated exposure control, adjustment of the mA and/or kV according to patient size, and/or use of iterative reconstruction technique. MIP reconstructed images were created and reviewed. Coronal and sagittal reformatted images were created and reviewed. CONTRAST: 100 mL of VISIPAQUE 320 administered intravenously. EXAM DATE/TIME: 09/25/2016 4:13 PM COMPARISON: There are no prior studies for comparison. FINDINGS: Heart, aorta and Pulmonary arteries: Heart size is normal. There are coronary calcifications. There is minimal pericardial fluid. There is no aneurysm or dissection. There is perfusion of the 3 arch vessels.There are vascular calcifications. There are no pulmonary emboli. Lungs and pleural spaces: Trachea and main bronchi are patent.. You small blebs at the right apex. There is minimal dependent atelectasis in the upper lobes. There are small bilateral pleural effusions. There is airspace disease in the lung bases right greater than left. Mediastinum: Esophagus is unremarkable. There is no mediastinal or hilar adenopathy Thyroid: Thyroid is unremarkable Bones/joints: There are no acute osseous abnormalities Soft tissues: unremarkable Upper abdomen: There are no acute abnormalities in the visualized portion of the abdomen. There is a left renal cyst IMPRESSION: Bilateral pleural effusions with basilar airspace disease atelectasis and/or infiltrate; atherosclerotic disease, no aneurysm, dissection or pulmonary embolus Additional findings as described above.
--- NOTE | 2016-09-25 21:46 | CP.PCM.PN ---
Subjective - Date & Time of Evaluation Date of Evaluation: 09/25/16 Time of Evaluation: 21:46 - Subjective Subjective: CHIEF COMPLAINTS TODAY : EVENTS NOTED. Patient intubated and then extubated this a.m. AFEBRILE, VS NOTED +++ Wheezing. PATIENT VOIDING ON HIS OWN. Denies dysuria, or hematuria. Less suprapubic discomfort. ROS. HEENT : N. Resp : No cough,pleuritic CP ,or hemoptysis Cardio : No anginal CP, PND, orthopnea, palpitation GI : +VE SUPRAPUBIC abd.pain, NO n/v ,diarrhea or GI bleeding . TRAFFIC OBSERVER : No headache, vertigo, focal deficit. Musculoskel : No joint swelling , Derm : No rash Psych : Normal affect. Ext : No swelling ,calf pain PE. Pt. is alert awake in no distress. V.S As noted in the chart Head ,ear nose,throat and eyes : Normal. Neck : Supple with normal carotids. Lungs: BILATERAL WHEEZING. Heart : S1 & S2 normal with S4. No murmur. Abd : Soft non tender with normal bowel sounds. TENDER SUPRAPUBIC Neuro : Moves all ext. with no localized deficit. Ext : No edema with intact pulses.Non tender calves Derm : No rashes or decubitus ulcer. LABS/RADIOLOGY: blood cultures +VE E. COLI- pansensitive. Urine culture e. coli. wbc improving. cREATININE 0.7/bun 12 Objective - Vital Signs/Intake and Output Vital Signs (last 24 hours): Temp Pulse Resp BP Pulse Ox 973.4 F H 93 H 19 134/73 99 09/25/16 16:00 09/25/16 18:59 09/25/16 18:59 09/25/16 19:01 09/25/16 18:59 Intake and Output: 09/25/16 09/26/16 18:59 06:59 Intake Total 711.7 Output Total 2555 100 Balance -1843.3 -100 - Medications Medications: Current Medications Albuterol/Ipratropium (Duoneb 3 Mg/0.5 Mg (3 Ml) Ud) 3 ml INH RQ6 [facility] Last Admin: 09/25/16 19:22 Dose: 3 ml Enoxaparin Sodium (Lovenox) 40 mg SC DAILY [facility] Last Admin: 09/25/16 10:00 Dose: 40 mg Famotidine (Pepcid) 20 mg PO BID [facility] Last Admin: 09/25/16 17:10 Dose: 20 mg Imipenem/Cilastatin Sodium 500 (mg/ Sodium Chloride) 100 mls @ 100 mls/hr IVPB Q6H [facility] Last Admin: 09/25/16 15:48 Dose: 100 mls/hr Amikacin Sulfate 500 mg/ (Sodium Chloride) 252 mls @ 250 mls/hr IVPB Q24H [facility] Stop: 09/26/16 13:01 Last Admin: 09/25/16 12:34 Dose: 250 mls/hr Propofol (Diprivan) 1,000 mg in 100 mls @ 3.565 mls/hr IV .Q24H PRN; Protocol; 10 MCG/KG/MIN PRN Reason: TITRATE PER MD ORDER Last Titration: 09/25/16 10:30 Dose: 0 mcg/kg/min, 0 mls/hr Insulin Glargine (Lantus) 10 unit SC [facility] Last Admin: 09/24/16 22:56 Dose: Not Given Insulin Human Regular (Novolin R) 0 unit SC [facility] PRN Reason: Protocol Last Admin: 09/25/16 16:33 Dose: 4 unit Methylprednisolone (Solu-Medrol) 60 mg IVP Q8H [facility] Last Admin: 09/25/16 11:30 Dose: 60 mg Potassium Phos/Sodium Phos (Neutra-Phos) 1 pkt PO Q8H [facility] Last Admin: 09/25/16 12:40 Dose: 1 pkt Promethazine HCl (Phenergan Syrup) 12.5 mg PO Q6 PRN PRN Reason: Cough Last Admin: 09/24/16 17:21 Dose: 12.5 mg Rosuvastatin Calcium (Crestor) 5 mg PO [facility] Last Admin: 09/24/16 22:55 Dose: Not Given Tamsulosin HCl (Flomax) 0.4 mg PO DAILY [facility] Last Admin: 09/25/16 10:00 Dose: 0.4 mg - Labs Labs: 09/25/16 06:24 09/25/16 07:57 PT 15.6 SECONDS (9.7-12.2) H 09/22/16 23:14 INR 1.4 09/22/16 23:14 APTT 26 SECONDS (21-34) 09/22/16 23:14 Assessment and Plan (1) Sepsis Status: Acute (2) Fever Status: Acute (3) UTI (urinary tract infection) Status: Acute (4) Hyponatremia Status: Acute (5) Diabetes mellitus Status: Acute (6) Rheumatoid arthritis Status: Acute - Assessment and Plan (Free Text) Assessment: IMPRESSION; -GRAM-NEGATIVE SEPSIS-E. COLI -UROSEPSIS -HYPONATREMIA. -DIABETES MELLITUS-2 -RHEUMATOID ARTHRITIS. PLAN ; cONTINUE iv PRIMAXIN 500 MG EVERY 6 HOURLY. 09/23/16 START iv AMIKACIN 500 MG EVERY 24 HOURLY 09/24/16 X 2 DAYS FOLLOW-UP CULTURES TO ADJUST ANTIBIOTICS. REPEAT BLOOD CULTURES IN A.M. 2 SETS TO SEE IF BACTEREMIA CLEARED. F/U RENAL FUNCTIONS CLOSELY. iv FLUIDS PER [employer]GAGE AGENT/PMD. CASE DISCUSSED WITH THE STAFF/PMD.
[2016-09-25] MEDS: (Lantus) Insulin Glargine, Recombinant SC SCH (22:11)
[2016-09-26] MEDS: Albuterol-Ipratrop 3 mg / 0.5 (3 ml) UD INH SCH ×4 (01:55→19:33)
[2016-09-26 06:41] LABS: BASO % 0.1 % (0.0-2.0); CHLORIDE 98 mmol/L (98-107); HEMATOCRIT 29.9 % (35.0-51.0); LYMPH # 0.7 K/uL (1.0-4.3); LYMPH % 6.6 % (20.0-40.0); MEAN CELL VOLUME 77.4 fL (80.0-94.0); MEAN CORPUSCULAR HEMOGLOBIN 25.5 pg (27.0-31.0); MEAN PLATELET VOLUME 9.7 fL (7.2-11.7); MONO # 0.8 K/uL (0.0-0.8); MONO % 7.5 % (0.0-10.0); PLATELET COUNT 167 K/uL (130-400); POTASSIUM 3.5 mmol/L (3.6-5.2); RED CELL DISTRIBUTION WIDTH 16.7 % (11.5-14.5); SODIUM 136 mmol/L (132-148); WHITE BLOOD COUNT 10.6 K/uL (4.8-10.8)
[2016-09-26 06:43] LABS: AST/SGOT 18 U/L (17-59); BILIRUBIN,TOTAL 0.5 mg/dL (0.2-1.3); CARBON DIOXIDE 29 mmol/L (22-30); GFR AFRICAN-AMERICAN > 60
[2016-09-26 06:44] LABS: ALKALINE PHOSPHATASE 42 U/L (38-126); ALT/SGPT 26 U/L (21-72); BLOOD UREA NITROGEN 12 mg/dL (9-20); CALCIUM 8.9 mg/dl (8.6-10.4); GLUCOSE,RANDOM 289 mg/dL (75-110); MAGNESIUM 1.6 mg/dL (1.6-2.3)
[2016-09-26] MEDS: Potassium & Sodium Phosphate PO SCH ×3 (07:11→21:55)
[2016-09-26] MEDS: (Novolin R) Insulin Human Regular 100 units/ml vial SC SCH ×4 (08:00→21:56)
[2016-09-26] MEDS ORDERED: Potassium Chloride 20 mEq ER Tab PO ONE (08:15)
[2016-09-26 08:38] LABS: NEUTROPHIL 83 % (50-75); TOTAL CELLS COUNTED 100
--- NOTE | 2016-09-26 08:43 | CP.CCUPN ---
<Eliseo Lucas - Last Filed: 09/26/16 12:43> CCU Subjective - Physician Review Subjective (Free Text): 09/26/16 08:40 Pt seen and examined at bedside. Nursing reports NAEO. Pt was extubated yesterday and has been saturating 99% on 3L NC. He reports breathing well and denies chest pain, palpitations, SOB, abdominal pain, N/V/D/C. Shields was removed this AM and will monitor urine output. Spoke with Dr. Sanz, who recommended starting Finasteride, and continuing Flomax. Critical Care Time Spent (in minutes): 40 CCU Objective - Vital Signs / Intake & Output Vital Signs (Last 4 hours): Vital Signs Pulse Resp BP Pulse Ox 09/26/16 06:02 56 L 16 129/54 L 99 09/26/16 06:00 62 17 99 09/26/16 05:01 54 L 14 130/58 L 99 09/26/16 05:00 55 L 15 99 Intake and Output (Last 8hrs): Intake & Output 09/25/16 09/26/16 09/26/16 22:59 06:59 14:59 Intake Total 1083 100 Output Total 800 1974 Balance 283 -1875 Weight 145 lb 8.081 oz Intake: Intake, IV Amount 100 100 Right Forearm 100 100 Oral 983 0 Output: Urine 800 1975 Urine, Voided 800 1975 Other: # Bowel Movements 1 - Physical Exam Head: Positive for: Atraumatic, Normocephalic Pupils: Positive for: PERRL Extroacular Muscles: Positive for: EOMI Conjunctiva: Positive for: Normal Mouth: Positive for: Moist Mucous Membranes Neck: Negative for: JVD Respiratory/Chest: Positive for: Clear to Auscultation, Good Air Exchange. Negative for: Respiratory Distress, Rhonchi Cardiovascular: Positive for: Regular Rate and Rhythm Abdomen: Positive for: Normal Bowel Sounds. Negative for: Distention Genitourinary Male: Positive for: Other (shields catheter) Upper Extremity: Positive for: Normal Inspection. Negative for: Cyanosis Lower Extremity: Positive for: Normal Inspection, NORMAL PULSES. Negative for: Edema Neurological: Positive for: GCS=15, CN II-XII Intact, Speech Normal Skin: Positive for: Warm, Dry Psychiatric: Positive for: Alert, Oriented x 3, Normal Insight, Normal Concentration. Negative for: Anxious - Medications Active Medications: Active Medications Generic Name Dose Route Start Last Admin Trade Name Freq PRN Reason Stop Dose Admin Albuterol/Ipratropium 3 ml 09/24/16 14:00 09/26/16 07:45 Duoneb 3 Mg/0.5 Mg (3 Ml) Ud INH 3 ml RQ6 TISH Administration Enoxaparin Sodium 40 mg 09/23/16 10:00 09/25/16 10:00 Lovenox SC 40 mg DAILY TISH Administration Famotidine 20 mg 09/23/16 10:00 09/25/16 17:10 Pepcid PO 20 mg BID TISH Administration Glipizide 5 mg 09/26/16 10:00 Glucotrol PO DAILY TISH Imipenem/Cilastatin Sodium 500 100 mls @ 100 mls/hr 09/23/16 10:30 09/26/16 05:04 mg/ Sodium Chloride IVPB 100 mls/hr Q6H TISH Administration Amikacin Sulfate 500 mg/ 252 mls @ 250 mls/hr 09/24/16 13:00 09/25/16 12:34 Sodium Chloride IVPB 09/26/16 13:01 250 mls/hr Q24H TISH Administration Propofol 1,000 mg in 100 mls @ 3.565 mls/hr 09/24/16 19:45 09/25/16 10:30 Diprivan IV 0 mcg/kg/min .Q24H PRN 0 mls/hr TITRATE PER MD ORDER Titration Protocol 10 MCG/KG/MIN Magnesium Sulfate/Dextrose 1 gm in 100 mls @ 100 mls/hr 09/26/16 09:00 Magnesium Sulfate 1 Gm/100 Ml D5w IVPB 09/26/16 09:59 ONCE ONE Insulin Glargine 10 unit 09/24/16 22:00 09/25/16 22:11 Lantus SC 10 units HS TISH Administration Insulin Human Regular 0 unit 09/23/16 16:19 09/26/16 08:00 Novolin R SC 6 unit ACHS TISH Administration Protocol Metformin HCl 1,000 mg 09/26/16 08:15 Glucophage PO BIDCC TISH Methylprednisolone 60 mg 09/24/16 20:00 09/26/16 06:03 Solu-Medrol IVP 60 mg Q8H TISH Administration Potassium Phos/Sodium Phos 1 pkt 09/23/16 21:00 09/26/16 07:11 Neutra-Phos PO 1 pkt Q8H TISH Administration Promethazine HCl 12.5 mg 09/24/16 17:04 09/24/16 17:21 Phenergan Syrup PO 12.5 mg Q6 PRN Administration Cough Rosuvastatin Calcium 5 mg 09/24/16 22:00 09/25/16 22:09 Crestor PO 5 mg HS TISH Administration Tamsulosin HCl 0.4 mg 09/23/16 10:00 09/25/16 10:00 Flomax PO 0.4 mg DAILY TISH Administration - Patient Studies Lab Studies: Lab Studies 09/26/16 09/26/16 09/26/16 Range/Units 07:47 06:24 06:24 WBC 10.6 (4.8-10.8) K/uL RBC 3.86 L (4.40-5.90) Mil/uL Hgb 9.9 L (12.0-18.0) g/dL Hct 29.9 L (35.0-51.0) % MCV 77.4 L (80.0-94.0) fL MCH 25.5 L (27.0-31.0) pg MCHC 33.0 (33.0-37.0) g/dL RDW 16.7 H (11.5-14.5) % Plt Count 167 (130-400) K/uL MPV 9.7 (7.2-11.7) fL Neut % (Auto) 85.8 H (50.0-75.0) % Lymph % (Auto) 6.6 L (20.0-40.0) % [place] % (Auto) 7.5 (0.0-10.0) % Eos % (Auto) 0.0 (0.0-4.0) % Baso % (Auto) 0.1 (0.0-2.0) % Neut # 9.1 H (1.8-7.0) K/uL Lymph # 0.7 L (1.0-4.3) K/uL [place] # 0.8 (0.0-0.8) K/uL Eos # 0.0 (0.0-0.7) K/uL Baso # 0.0 (0.0-0.2) K/uL Neutrophils % (Manual) (50-75) % Band Neutrophils % (0-2) % Lymphocytes % (Manual) (20-40) % Monocytes % (Manual) (0-10) % Nucleated RBC % (0-0) % Platelet Estimate (NORMAL) Hypochromasia (manual) Poikilocytosis (manual Anisocytosis (manual) Microcytosis (manual) [place] Cells D-Dimer, Quantitative (0-243) ng/mlDDU Sodium 136 (132-148) mmol/L Potassium 3.5 L (3.6-5.2) mmol/L Chloride 98 (98-107) mmol/L Carbon Dioxide 29 (22-30) mmol/L Anion Gap 13 (10-20) BUN 12 (9-20) mg/dL Creatinine 0.7 L (0.8-1.5) MG/DL Est GFR ( Amer) > 60 Est GFR (Non-Af Amer) > 60 POC Glucose (mg/dL) 336 H (65-110) mg/dL Random Glucose 289 H (75-110) mg/dL Calcium 8.9 (8.6-10.4) mg/dl Phosphorus 4.0 (2.5-4.5) mg/dL Magnesium 1.6 (1.6-2.3) mg/dL Total Bilirubin 0.5 (0.2-1.3) mg/dL AST 18 (17-59) U/L ALT 26 (21-72) U/L Alkaline Phosphatase 42 (38-126) U/L NT-Pro-B Natriuret Pep (0-900) pg/mL Total Protein 6.0 L (6.3-8.3) g/dL Albumin 3.0 L (3.5-5.0) g/dL Globulin 2.9 (2.2-3.9) gm/dL Albumin/Globulin Ratio 1.0 (1.0-2.1) Procalcitonin (0.19-0.49) NG/ML 09/25/16 09/25/16 09/25/16 Range/Units 21:22 15:42 11:37 WBC (4.8-10.8) K/uL RBC (4.40-5.90) Mil/uL Hgb (12.0-18.0) g/dL Hct (35.0-51.0) % MCV (80.0-94.0) fL MCH (27.0-31.0) pg MCHC (33.0-37.0) g/dL RDW (11.5-14.5) % Plt Count (130-400) K/uL MPV (7.2-11.7) fL Neut % (Auto) (50.0-75.0) % Lymph % (Auto) (20.0-40.0) % [place] % (Auto) (0.0-10.0) % Eos % (Auto) (0.0-4.0) % Baso % (Auto) (0.0-2.0) % Neut # (1.8-7.0) K/uL Lymph # (1.0-4.3) K/uL [place] # (0.0-0.8) K/uL Eos # (0.0-0.7) K/uL Baso # (0.0-0.2) K/uL Neutrophils % (Manual) (50-75) % Band Neutrophils % (0-2) % Lymphocytes % (Manual) (20-40) % Monocytes % (Manual) (0-10) % Nucleated RBC % (0-0) % Platelet Estimate (NORMAL) Hypochromasia (manual) Poikilocytosis (manual Anisocytosis (manual) Microcytosis (manual) [place] Cells D-Dimer, Quantitative (0-243) ng/mlDDU Sodium (132-148) mmol/L Potassium (3.6-5.2) mmol/L Chloride (98-107) mmol/L Carbon Dioxide (22-30) mmol/L Anion Gap (10-20) BUN (9-20) mg/dL Creatinine (0.8-1.5) MG/DL Est GFR ( Amer) Est GFR (Non-Af Amer) POC Glucose (mg/dL) 395 H 265 H 317 H (65-110) mg/dL Random Glucose (75-110) mg/dL Calcium (8.6-10.4) mg/dl Phosphorus (2.5-4.5) mg/dL Magnesium (1.6-2.3) mg/dL Total Bilirubin (0.2-1.3) mg/dL AST (17-59) U/L ALT (21-72) U/L Alkaline Phosphatase (38-126) U/L NT-Pro-B Natriuret Pep (0-900) pg/mL Total Protein (6.3-8.3) g/dL Albumin (3.5-5.0) g/dL Globulin (2.2-3.9) gm/dL Albumin/Globulin Ratio (1.0-2.1) Procalcitonin (0.19-0.49) NG/ML 09/25/16 09/25/16 09/25/16 Range/Units 09:32 09:32 07:57 WBC (4.8-10.8) K/uL RBC (4.40-5.90) Mil/uL Hgb (12.0-18.0) g/dL Hct (35.0-51.0) % MCV (80.0-94.0) fL MCH (27.0-31.0) pg MCHC (33.0-37.0) g/dL RDW (11.5-14.5) % Plt Count (130-400) K/uL MPV (7.2-11.7) fL Neut % (Auto) (50.0-75.0) % Lymph % (Auto) (20.0-40.0) % [place] % (Auto) (0.0-10.0) % Eos % (Auto) (0.0-4.0) % Baso % (Auto) (0.0-2.0) % Neut # (1.8-7.0) K/uL Lymph # (1.0-4.3) K/uL [place] # (0.0-0.8) K/uL Eos # (0.0-0.7) K/uL Baso # (0.0-0.2) K/uL Neutrophils % (Manual) (50-75) % Band Neutrophils % (0-2) % Lymphocytes % (Manual) (20-40) % Monocytes % (Manual) (0-10) % Nucleated RBC % (0-0) % Platelet Estimate (NORMAL) Hypochromasia (manual) Poikilocytosis (manual Anisocytosis (manual) Microcytosis (manual) [place] Cells D-Dimer, Quantitative 991 H (0-243) ng/mlDDU Sodium 133 (132-148) mmol/L Potassium 3.9 (3.6-5.2) mmol/L Chloride 99 (98-107) mmol/L Carbon Dioxide 24 (22-30) mmol/L Anion Gap 13 (10-20) BUN 10 (9-20) mg/dL Creatinine 0.7 L (0.8-1.5) MG/DL Est GFR ( Amer) > 60 Est GFR (Non-Af Amer) > 60 POC Glucose (mg/dL) (65-110) mg/dL Random Glucose 151 H (75-110) mg/dL Calcium 8.9 (8.6-10.4) mg/dl Phosphorus 3.0 (2.5-4.5) mg/dL Magnesium 1.4 L (1.6-2.3) mg/dL Total Bilirubin 0.5 (0.2-1.3) mg/dL AST 25 (17-59) U/L ALT 28 (21-72) U/L Alkaline Phosphatase 52 (38-126) U/L NT-Pro-B Natriuret Pep 1580 H (0-900) pg/mL Total Protein 6.5 (6.3-8.3) g/dL Albumin 3.3 L (3.5-5.0) g/dL Globulin 3.2 (2.2-3.9) gm/dL Albumin/Globulin Ratio 1.0 (1.0-2.1) Procalcitonin 3.91 H (0.19-0.49) NG/ML 09/25/16 Range/Units 06:24 WBC (4.8-10.8) K/uL RBC (4.40-5.90) Mil/uL Hgb (12.0-18.0) g/dL Hct (35.0-51.0) % MCV (80.0-94.0) fL MCH (27.0-31.0) pg MCHC (33.0-37.0) g/dL RDW (11.5-14.5) % Plt Count (130-400) K/uL MPV (7.2-11.7) fL Neut % (Auto) (50.0-75.0) % Lymph % (Auto) (20.0-40.0) % [place] % (Auto) (0.0-10.0) % Eos % (Auto) (0.0-4.0) % Baso % (Auto) (0.0-2.0) % Neut # (1.8-7.0) K/uL Lymph # (1.0-4.3) K/uL [place] # (0.0-0.8) K/uL Eos # (0.0-0.7) K/uL Baso # (0.0-0.2) K/uL Neutrophils % (Manual) 82 H (50-75) % Band Neutrophils % 8 H (0-2) % Lymphocytes % (Manual) 9 L (20-40) % Monocytes % (Manual) 1 (0-10) % Nucleated RBC % 1 H (0-0) % Platelet Estimate Slightly decreased L (NORMAL) Hypochromasia (manual) Slight Poikilocytosis (manual Slight Anisocytosis (manual) Slight Microcytosis (manual) Slight [place] Cells Slight D-Dimer, Quantitative (0-243) ng/mlDDU Sodium (132-148) mmol/L Potassium (3.6-5.2) mmol/L Chloride (98-107) mmol/L Carbon Dioxide (22-30) mmol/L Anion Gap (10-20) BUN (9-20) mg/dL Creatinine (0.8-1.5) MG/DL Est GFR ( Amer) Est GFR (Non-Af Amer) POC Glucose (mg/dL) (65-110) mg/dL Random Glucose (75-110) mg/dL Calcium (8.6-10.4) mg/dl Phosphorus (2.5-4.5) mg/dL Magnesium (1.6-2.3) mg/dL Total Bilirubin (0.2-1.3) mg/dL AST (17-59) U/L ALT (21-72) U/L Alkaline Phosphatase (38-126) U/L NT-Pro-B Natriuret Pep (0-900) pg/mL Total Protein (6.3-8.3) g/dL Albumin (3.5-5.0) g/dL Globulin (2.2-3.9) gm/dL Albumin/Globulin Ratio (1.0-2.1) Procalcitonin (0.19-0.49) NG/ML Laboratory Results - last 24 hr 09/25/16 09/25/16 09/25/16 06:24 07:57 09:32 WBC RBC Hgb Hct MCV MCH MCHC RDW Plt Count MPV Neut % (Auto) Lymph % (Auto) [place] % (Auto) Eos % (Auto) Baso % (Auto) Neut # Lymph # [place] # Eos # Baso # Neutrophils % (Manual) 82 H Band Neutrophils % 8 H Lymphocytes % (Manual) 9 L Monocytes % (Manual) 1 Nucleated RBC % 1 H Platelet Estimate Slightly decreased L Hypochromasia (manual) Slight Poikilocytosis (manual Slight Anisocytosis (manual) Slight Microcytosis (manual) Slight [place] Cells Slight D-Dimer, Quantitative Sodium 133 Potassium 3.9 Chloride 99 Carbon Dioxide 24 Anion Gap 13 BUN 10 Creatinine 0.7 L Est GFR ( Amer) > 60 Est GFR (Non-Af Amer) > 60 POC Glucose (mg/dL) Random Glucose 151 H Calcium 8.9 Phosphorus 3.0 Magnesium 1.4 L Total Bilirubin 0.5 AST 25 ALT 28 Alkaline Phosphatase 52 NT-Pro-B Natriuret Pep 1580 H Total Protein 6.5 Albumin 3.3 L Globulin 3.2 Albumin/Globulin Ratio 1.0 Procalcitonin 3.91 H 09/25/16 09/25/16 09/25/16 09:32 11:37 15:42 WBC RBC Hgb Hct MCV MCH MCHC RDW Plt Count MPV Neut % (Auto) Lymph % (Auto) [place] % (Auto) Eos % (Auto) Baso % (Auto) Neut # Lymph # [place] # Eos # Baso # Neutrophils % (Manual) Band Neutrophils % Lymphocytes % (Manual) Monocytes % (Manual) Nucleated RBC % Platelet Estimate Hypochromasia (manual) Poikilocytosis (manual Anisocytosis (manual) Microcytosis (manual) [place] Cells D-Dimer, Quantitative 991 H Sodium Potassium Chloride Carbon Dioxide Anion Gap BUN Creatinine Est GFR ( Amer) Est GFR (Non-Af Amer) POC Glucose (mg/dL) 317 H 265 H Random Glucose Calcium Phosphorus Magnesium Total Bilirubin AST ALT Alkaline Phosphatase NT-Pro-B Natriuret Pep Total Protein Albumin Globulin Albumin/Globulin Ratio Procalcitonin 09/25/16 09/26/16 09/26/16 21:22 06:24 06:24 WBC 10.6 RBC 3.86 L Hgb 9.9 L Hct 29.9 L MCV 77.4 L MCH 25.5 L MCHC 33.0 RDW 16.7 H Plt Count 167 MPV 9.7 Neut % (Auto) 85.8 H Lymph % (Auto) 6.6 L [place] % (Auto) 7.5 Eos % (Auto) 0.0 Baso % (Auto) 0.1 Neut # 9.1 H Lymph # 0.7 L [place] # 0.8 Eos # 0.0 Baso # 0.0 Neutrophils % (Manual) Band Neutrophils % Lymphocytes % (Manual) Monocytes % (Manual) Nucleated RBC % Platelet Estimate Hypochromasia (manual) Poikilocytosis (manual Anisocytosis (manual) Microcytosis (manual) [place]ifan[place] Cells D-Dimer, Quantitative Sodium 136 Potassium 3.5 L Chloride 98 Carbon Dioxide 29 Anion Gap 13 BUN 12 Creatinine 0.7 L Est GFR ( Amer) > 60 Est GFR (Non-Af Amer) > 60 POC Glucose (mg/dL) 395 H Random Glucose 289 H Calcium 8.9 Phosphorus 4.0 Magnesium 1.6 Total Bilirubin 0.5 AST 18 ALT 26 Alkaline Phosphatase 42 NT-Pro-B Natriuret Pep Total Protein 6.0 L Albumin 3.0 L Globulin 2.9 Albumin/Globulin Ratio 1.0 Procalcitonin 09/26/16 07:47 WBC RBC Hgb Hct MCV MCH MCHC RDW Plt Count MPV Neut % (Auto) Lymph % (Auto) [place] % (Auto) Eos % (Auto) Baso % (Auto) Neut # Lymph # [place] # Eos # Baso # Neutrophils % (Manual) Band Neutrophils % Lymphocytes % (Manual) Monocytes % (Manual) Nucleated RBC % Platelet Estimate Hypochromasia (manual) Poikilocytosis (manual Anisocytosis (manual) Microcytosis (manual) [place] Cells D-Dimer, Quantitative Sodium Potassium Chloride Carbon Dioxide Anion Gap BUN Creatinine Est GFR ( Amer) Est GFR (Non-Af Amer) POC Glucose (mg/dL) 336 H Random Glucose Calcium Phosphorus Magnesium Total Bilirubin AST ALT Alkaline Phosphatase NT-Pro-B Natriuret Pep Total Protein Albumin Globulin Albumin/Globulin Ratio Procalcitonin Fingerstick Blood Sugar Results: 336 Review of Systems - Constitutional Constitutional: absent: Fever, Chills - EENT Eyes: absent: Change in Vision Ears: absent: Decreased Hearing - Cardiovascular Cardiovascular: absent: Chest Pain, Chest Pain at Rest, Dyspnea, Dyspnea on Exertion - Respiratory Respiratory: absent: Cough, Dyspnea, Dyspnea on Exertion - Gastrointestinal Gastrointestinal: absent: Abdominal Pain, Nausea, Vomiting - Genitourinary Genitourinary: absent: Dysuria - Musculoskeletal Musculoskeletal: absent: Numbness, Tingling - Integumentary Integumentary: absent: Wounds - Neurological Neurological: absent: Abnormal Hearing, Tingling, Weakness Critical Care Progress Note - Nutrition Nutrition: Nutrition Category Date Time Status Liquid Diet [DIET] Diets 09/25/16 Dinner Active Assessment/Plan - Assessment and Plan (Free Text) Assessment: 71 year old male, with PMHx of urinary retention and hematuria, with recent discharge from [facility] for similar symptoms. Positive urine and blood cultures. Acute respiratory failure on 09/24, and pt intubated. Pt extubated on 09/25. Plan: Pt status: Transferred to [facility], but acute respiratory failure overnight led to readmission to ICU Neuro: AA)x3 Pt extubated Pulm: Acute respiratory failure CXR (09/25/16): Lungs clear. No evidence of Pulm Edema, infiltrate (wet read, f/u official) CT Chest PE: negative for PE. B/l pleural effusions with basilar airspace disease. Atelectasis vs infiltrate. 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 Sanz, help appreciated - eventually d/c on oral antibiotics, Flomax - f/u in office 1 week after d/c Hx of BPH continue home Flomax 0.4mg PO Daily Hypernatremia - resolved, 136 this AM Hypokalemia - 3.5 on AM labs, repleted Hypomagnesemia - 1.6 on AM labs, repleted Hypophosphatemia - HOLD neutra-phos Monitor I/Os - 10L of urine output in 48 hrs MSKLTL: Rheumatoid arthritis on meds - pt will bring home Xeljanz XR to verify ENDO: T2DM BG elevated due to steroids Lantus 10 units SC HS ISS - increased to HIGH hold home Metformin 1000mg PO BID, and Glipizide 5mg PO Daily due to 48hr window post CT IV contrast GI: Diabetic Diet AST/ALT/Alk Phos: WNL ID: Sepsis (Criteria: Febrile, Tachy, Tachynpeic on admission) believed secondary to [facility] indwelling catheter (pt had shields on discharge, but did not f/u for removal w urology) - Shields catheter removed in ED this admission Lactate: 1.0 (09/25), 3.2 on admission Leukocytosis 10.6 from 12.6 yesterday - Left shift w. bandemia greatly improved pro-BNP: 1580, pro-calcitonin: 3.91 UA (09/23/16): Protein 2+, Blood 2+, LE 3+, WBC 515, RBC 67, Bacteria Occasional Urine culture (09/22/16): Gram negative Raimundo, awaiting sensitivities Blood Culture (09/22/16): E. coli x1 (Anaerobic bottle only), most sensitive to Primaxin ID consult: Dr. Gallardo, help appreciated - Primaxin 500mg IV Q6H (start 09/23/16) - Amikacin 500mg IV Q24H (start 09/24/16, 3 doses, end date of 09/26/16) Prophylaxis: Pepcid 20mg PO BID Lovenox 40mg SC Daily SCDs <Fadi Grossman - Last Filed: 09/26/16 13:37> CCU Objective - Vital Signs / Intake & Output Vital Signs (Last 4 hours): Vital Signs Pulse Resp BP Pulse Ox 09/26/16 12:01 68 11 L 151/72 H 100 09/26/16 11:01 79 17 149/71 100 09/26/16 11:00 76 23 100 09/26/16 10:01 89 20 142/74 100 09/26/16 10:00 82 23 99 Intake and Output (Last 8hrs): Intake & Output 09/25/16 09/26/16 09/26/16 22:59 06:59 14:59 Intake Total 3281 809 5551 Output Total 800 1974 745 Balance 283 -1875 605 Weight 145 lb 8.081 oz Intake: Intake, IV Amount 100 100 200 Right Forearm 100 100 200 Oral 983 0 1150 Output: Urine 800 1974 74 Urine, Voided 800 1974 745 Other: # Voids Urine, Voided 1 # Bowel Movements 1 1 - Medications Active Medications: Active Medications Generic Name Dose Route Start Last Admin Trade Name Freq PRN Reason Stop Dose Admin Albuterol/Ipratropium 3 ml 09/24/16 14:00 09/26/16 13:20 Duoneb 3 Mg/0.5 Mg (3 Ml) Ud INH 3 ml RQ6 TISH Administration Enoxaparin Sodium 40 mg 09/23/16 10:00 09/26/16 09:39 Lovenox SC 40 mg DAILY TISH Administration Famotidine 20 mg 09/23/16 10:00 09/26/16 09:39 Pepcid PO 20 mg BID TISH Administration Finasteride 5 mg 09/26/16 11:30 09/26/16 11:46 Proscar PO 5 mg DAILY TISH Administration Glipizide 5 mg 09/26/16 10:00 09/26/16 09:39 Glucotrol PO 5 mg DAILY TISH Administration Imipenem/Cilastatin Sodium 500 100 mls @ 100 mls/hr 09/23/16 10:30 09/26/16 09:55 mg/ Sodium Chloride IVPB 100 mls/hr Q6H TISH Administration Insulin Glargine 10 unit 09/24/16 22:00 09/25/16 22:11 Lantus SC 10 units HS TISH Administration Insulin Human Regular 0 unit 09/26/16 09:18 09/26/16 11:39 Novolin R SC 10 unit ACHS TISH Administration Protocol Metformin HCl 1,000 mg 09/27/16 08:15 Glucophage PO BIDCC TISH Methylprednisolone 20 mg 09/26/16 10:00 09/26/16 09:41 Solu-Medrol IVP 20 mg Q8 TISH Administration Potassium Phos/Sodium Phos 1 pkt 09/23/16 21:00 09/26/16 12:30 Neutra-Phos PO 1 pkt Q8H TISH Administration Promethazine HCl 12.5 mg 09/24/16 17:04 09/24/16 17:21 Phenergan Syrup PO 12.5 mg Q6 PRN Administration Cough Rosuvastatin Calcium 5 mg 09/24/16 22:00 09/25/16 22:09 Crestor PO 5 mg HS TISH Administration Tamsulosin HCl 0.4 mg 09/23/16 10:00 09/26/16 09:40 Flomax PO 0.4 mg DAILY TISH Administration - Patient Studies Lab Studies: Lab Studies 09/26/16 09/26/16 09/26/16 Range/Units 11:28 07:47 06:24 WBC (4.8-10.8) K/uL RBC (4.40-5.90) Mil/uL Hgb (12.0-18.0) g/dL Hct (35.0-51.0) % MCV (80.0-94.0) fL MCH (27.0-31.0) pg MCHC (33.0-37.0) g/dL RDW (11.5-14.5) % Plt Count (130-400) K/uL MPV (7.2-11.7) fL Neut % (Auto) (50.0-75.0) % Lymph % (Auto) (20.0-40.0) % [place] % (Auto) (0.0-10.0) % Eos % (Auto) (0.0-4.0) % Baso % (Auto) (0.0-2.0) % Neut # (1.8-7.0) K/uL Lymph # (1.0-4.3) K/uL [place] # (0.0-0.8) K/uL Eos # (0.0-0.7) K/uL Baso # (0.0-0.2) K/uL Neutrophils % (Manual) (50-75) % Band Neutrophils % (0-2) % Lymphocytes % (Manual) (20-40) % Monocytes % (Manual) (0-10) % Platelet Estimate (NORMAL) Hypochromasia (manual) Poikilocytosis (manual Anisocytosis (manual) Ovalocytes Sodium 136 (132-148) mmol/L Potassium 3.5 L (3.6-5.2) mmol/L Chloride 98 (98-107) mmol/L Carbon Dioxide 29 (22-30) mmol/L Anion Gap 13 (10-20) BUN 12 (9-20) mg/dL Creatinine 0.7 L (0.8-1.5) MG/DL Est GFR ( Amer) > 60 Est GFR (Non-Af Amer) > 60 POC Glucose (mg/dL) 378 H 336 H (65-110) mg/dL Random Glucose 289 H (75-110) mg/dL Calcium 8.9 (8.6-10.4) mg/dl Phosphorus 4.0 (2.5-4.5) mg/dL Magnesium 1.6 (1.6-2.3) mg/dL Total Bilirubin 0.5 (0.2-1.3) mg/dL AST 18 (17-59) U/L ALT 26 (21-72) U/L Alkaline Phosphatase 42 (38-126) U/L Total Protein 6.0 L (6.3-8.3) g/dL Albumin 3.0 L (3.5-5.0) g/dL Globulin 2.9 (2.2-3.9) gm/dL Albumin/Globulin Ratio 1.0 (1.0-2.1) Procalcitonin (0.19-0.49) NG/ML 09/26/16 09/25/16 09/25/16 Range/Units 06:24 21:22 15:42 WBC 10.6 (4.8-10.8) K/uL RBC 3.86 L (4.40-5.90) Mil/uL Hgb 9.9 L (12.0-18.0) g/dL Hct 29.9 L (35.0-51.0) % MCV 77.4 L (80.0-94.0) fL MCH 25.5 L (27.0-31.0) pg MCHC 33.0 (33.0-37.0) g/dL RDW 16.7 H (11.5-14.5) % Plt Count 167 (130-400) K/uL MPV 9.7 (7.2-11.7) fL Neut % (Auto) 85.8 H (50.0-75.0) % Lymph % (Auto) 6.6 L (20.0-40.0) % [place] % (Auto) 7.5 (0.0-10.0) % Eos % (Auto) 0.0 (0.0-4.0) % Baso % (Auto) 0.1 (0.0-2.0) % Neut # 9.1 H (1.8-7.0) K/uL Lymph # 0.7 L (1.0-4.3) K/uL [place] # 0.8 (0.0-0.8) K/uL Eos # 0.0 (0.0-0.7) K/uL Baso # 0.0 (0.0-0.2) K/uL Neutrophils % (Manual) 83 H (50-75) % Band Neutrophils % 3 H (0-2) % Lymphocytes % (Manual) 8 L (20-40) % Monocytes % (Manual) 6 (0-10) % Platelet Estimate Normal (NORMAL) Hypochromasia (manual) Slight Poikilocytosis (manual Slight Anisocytosis (manual) Slight Ovalocytes Slight Sodium (132-148) mmol/L Potassium (3.6-5.2) mmol/L Chloride (98-107) mmol/L Carbon Dioxide (22-30) mmol/L Anion Gap (10-20) BUN (9-20) mg/dL Creatinine (0.8-1.5) MG/DL Est GFR ( Amer) Est GFR (Non-Af Amer) POC Glucose (mg/dL) 395 H 265 H (65-110) mg/dL Random Glucose (75-110) mg/dL Calcium (8.6-10.4) mg/dl Phosphorus (2.5-4.5) mg/dL Magnesium (1.6-2.3) mg/dL Total Bilirubin (0.2-1.3) mg/dL AST (17-59) U/L ALT (21-72) U/L Alkaline Phosphatase (38-126) U/L Total Protein (6.3-8.3) g/dL Albumin (3.5-5.0) g/dL Globulin (2.2-3.9) gm/dL Albumin/Globulin Ratio (1.0-2.1) Procalcitonin (0.19-0.49) NG/ML 09/25/16 Range/Units 09:32 WBC (4.8-10.8) K/uL RBC (4.40-5.90) Mil/uL Hgb (12.0-18.0) g/dL Hct (35.0-51.0) % MCV (80.0-94.0) fL MCH (27.0-31.0) pg MCHC (33.0-37.0) g/dL RDW (11.5-14.5) % Plt Count (130-400) K/uL MPV (7.2-11.7) fL Neut % (Auto) (50.0-75.0) % Lymph % (Auto) (20.0-40.0) % [place] % (Auto) (0.0-10.0) % Eos % (Auto) (0.0-4.0) % Baso % (Auto) (0.0-2.0) % Neut # (1.8-7.0) K/uL Lymph # (1.0-4.3) K/uL [place] # (0.0-0.8) K/uL Eos # (0.0-0.7) K/uL Baso # (0.0-0.2) K/uL Neutrophils % (Manual) (50-75) % Band Neutrophils % (0-2) % Lymphocytes % (Manual) (20-40) % Monocytes % (Manual) (0-10) % Platelet Estimate (NORMAL) Hypochromasia (manual) Poikilocytosis (manual Anisocytosis (manual) Ovalocytes Sodium (132-148) mmol/L Potassium (3.6-5.2) mmol/L Chloride (98-107) mmol/L Carbon Dioxide (22-30) mmol/L Anion Gap (10-20) BUN (9-20) mg/dL Creatinine (0.8-1.5) MG/DL Est GFR ( Amer) Est GFR (Non-Af Amer) POC Glucose (mg/dL) (65-110) mg/dL Random Glucose (75-110) mg/dL Calcium (8.6-10.4) mg/dl Phosphorus (2.5-4.5) mg/dL Magnesium (1.6-2.3) mg/dL Total Bilirubin (0.2-1.3) mg/dL AST (17-59) U/L ALT (21-72) U/L Alkaline Phosphatase (38-126) U/L Total Protein (6.3-8.3) g/dL Albumin (3.5-5.0) g/dL Globulin (2.2-3.9) gm/dL Albumin/Globulin Ratio (1.0-2.1) Procalcitonin 3.91 H (0.19-0.49) NG/ML Laboratory Results - last 24 hr 09/25/16 09/25/16 09/25/16 09:32 15:42 21:22 WBC RBC Hgb Hct MCV MCH MCHC RDW Plt Count MPV Neut % (Auto) Lymph % (Auto) [place] % (Auto) Eos % (Auto) Baso % (Auto) Neut # Lymph # [place] # Eos # Baso # Neutrophils % (Manual) Band Neutrophils % Lymphocytes % (Manual) Monocytes % (Manual) Platelet Estimate Hypochromasia (manual) Poikilocytosis (manual Anisocytosis (manual) Ovalocytes Sodium Potassium Chloride Carbon Dioxide Anion Gap BUN Creatinine Est GFR ( Amer) Est GFR (Non-Af Amer) POC Glucose (mg/dL) 265 H 395 H Random Glucose Calcium Phosphorus Magnesium Total Bilirubin AST ALT Alkaline Phosphatase Total Protein Albumin Globulin Albumin/Globulin Ratio Procalcitonin 3.91 H 09/26/16 09/26/16 09/26/16 06:24 06:24 07:47 WBC 10.6 RBC 3.86 L Hgb 9.9 L Hct 29.9 L MCV 77.4 L MCH 25.5 L MCHC 33.0 RDW 16.7 H Plt Count 167 MPV 9.7 Neut % (Auto) 85.8 H Lymph % (Auto) 6.6 L [place] % (Auto) 7.5 Eos % (Auto) 0.0 Baso % (Auto) 0.1 Neut # 9.1 H Lymph # 0.7 L [place] # 0.8 Eos # 0.0 Baso # 0.0 Neutrophils % (Manual) 83 H Band Neutrophils % 3 H Lymphocytes % (Manual) 8 L Monocytes % (Manual) 6 Platelet Estimate Normal Hypochromasia (manual) Slight Poikilocytosis (manual Slight Anisocytosis (manual) Slight Ovalocytes Slight Sodium 136 Potassium 3.5 L Chloride 98 Carbon Dioxide 29 Anion Gap 13 BUN 12 Creatinine 0.7 L Est GFR ( Amer) > 60 Est GFR (Non-Af Amer) > 60 POC Glucose (mg/dL) 336 H Random Glucose 289 H Calcium 8.9 Phosphorus 4.0 Magnesium 1.6 Total Bilirubin 0.5 AST 18 ALT 26 Alkaline Phosphatase 42 Total Protein 6.0 L Albumin 3.0 L Globulin 2.9 Albumin/Globulin Ratio 1.0 Procalcitonin 09/26/16 11:28 WBC RBC Hgb Hct MCV MCH MCHC RDW Plt Count MPV Neut % (Auto) Lymph % (Auto) [place] % (Auto) Eos % (Auto) Baso % (Auto) Neut # Lymph # [place] # Eos # Baso # Neutrophils % (Manual) Band Neutrophils % Lymphocytes % (Manual) Monocytes % (Manual) Platelet Estimate Hypochromasia (manual) Poikilocytosis (manual Anisocytosis (manual) Ovalocytes Sodium Potassium Chloride Carbon Dioxide Anion Gap BUN Creatinine Est GFR ( Amer) Est GFR (Non-Af Amer) POC Glucose (mg/dL) 378 H Random Glucose Calcium Phosphorus Magnesium Total Bilirubin AST ALT Alkaline Phosphatase Total Protein Albumin Globulin Albumin/Globulin Ratio Procalcitonin Critical Care Progress Note - Nutrition Nutrition: Nutrition Category Date Time Status Diabetic [Consistent Carbohydrate] [DIET] Diets 09/26/16 Lunch Active Attending/Attestation - Attestation I have personally seen and examined this patient.: Yes I have fully participated in the care of the patient.: Yes I have reviewed all pertinent clinical information: Yes Notes (Text): 09/26/16 13:35 I have seen and examined the patient. Medical records, lab studies, and imaging were reviewed by me and a management plan was formulated on multidisciplinary rounds with resident . I agree with their above documented assessment and plan. Adding Finasteride to Flomax. D/c shields and watch for voiding. Would advise not to send patient home with shields again, as he may have another septc episode. Critical Care Time 35 minutes. Multi-disciplinary rounds were performed with house staff, nursing, speech therapy, respiratory therapy, pharmacy and nutrition with integrated input from the primary team/attending and other consulting services. The documented time is cumulative and includes review of patient data/exams/labs/chart review and examination of the patient on rounds and throughout the day; time is exclusive of any procedures or teaching time.
[2016-09-26] MEDS ORDERED: Magnesium Sulfate 1 gm in D5W 1 GM/100 ML BAG IVPB ONE (09:00)
[2016-09-26] MEDS: Enoxaparin 40 mg Syringe SC SCH (09:39)
[2016-09-26] MEDS: MethylPREDNISolone 40 mg Vial IVP SCH ×3 (09:41→21:58)
--- NOTE | 2016-09-26 12:00 | PN ---
DATE: 09/26/2016 TIME OF FOLLOWUP: Roughly around 11:30 a.m. The patient recently had to be intubated secondary to his pulmonary pathology and at that time, a Fol ey catheter was reinserted into the bladder. The patient, however, now is much improved. He is extu bated and they removed his Garrett catheter this morning for a repeat voiding trial. This was discusse d with the attendings. The patient was on Flomax, which he will continue to take 0.4 mg daily for tr eatment of his BPH and we will also start the patient on finasteride 5 mg daily, also for treatment o f BPH and to prevent any further episodes of urinary retention. It does take approximately 3 months for finasteride to take effect. The patient's blood cultures on 09/22/2016 showed E. coli and his uri ne cultures were positive for gram-negative rods, but only 10-50,000 colonies. VITAL SIGNS: Today, his pulse rate is 79 and his respiratory rate was 17 and his O2 sat with nasal c annula is 100%. His blood pressure was 149/71. LABORATORY DATA: Results today, 09/26/2016, showed a CBC with a WBC count of 10.6, hemoglobin of 9.9 a nd hematocrit of 29.9 with a platelet count of 167,000. His chem profile shows a sodium of 136, pota ssium 3.5, chloride 98, CO2 29, BUN and creatinine of 12 and 0.7 with a GFR greater than 60, which is excellent. However, his glucoses still run high, the most recent 378. His calcium is 8.9. DIAGNOSTIC IMPRESSION: 1. Originally urinary retention. 2. Benign prostatic hypertrophy. 3. Urosepsis. PLAN: To just sterilize his urine with IV antibiotics and the patient can eventually be discharged h ome on oral antibiotics with Flomax 0.4 mg daily and finasteride 5 mg daily for treatment of BPH. Th e patient to be seen in office followup a week after his discharge from [facility]. Hubert Sanz MD cc: [phone] TT: 09/26/2016 11:59:43 Confirmation # [id number] Dictation # [id number]
[2016-09-26] MEDS: Amikacin Sulfate 500 MG in Sodium Chloride 0.9% 250 ML IVPB SCH (12:30)
--- NOTE | 2016-09-26 13:19 | CARD ---
APPROVED REPORT EXAM: Two-dimensional and M-mode echocardiogram with Doppler and color Doppler. Other Information Quality : Technically LimitedRhythm : NSR Technically limited study due to VENT,SUPINE INDICATION Congestive Heart Failure COPD RISK FACTORS Hypertension Hyperlipidemia M-Mode DIMENSIONS RVDd2.02 (2.1-3.2cm)Left Atrium (MM)2.51 (2.5-4.0cm) IVSd0.62 (0.7-1.1cm)Aortic Root2.21 (2.2-3.7cm) LVDd4.49 (4.0-5.6cm)Aortic Cusp Exc.1.63 (1.5-2.0cm) PWd0.75 (0.7-1.1cm)FS (%) 29 % LVDs3.19 (2.0-3.8cm)LVEF (%)56 (>50%) Mitral Valve MV E Ouhmorfw95.8cm/sMV A Bycuqfjb14.8cm/sE/A ratio0.8 TDI E/Lateral E'0.0E/Medial E'0.0 <Conclusion> tds. la,lv & ra rv size appears normal. normal lv wall motion,thickness,systolic & diastolic funciton with lvef of 55-60%. mitral & tv appears normal. aortic valve not well seen but is probably normal. pv not seen. mild mr. no pericardial effusion.
--- NOTE | 2016-09-26 13:40 | CP.PCM.PN ---
Subjective - Date & Time of Evaluation Date of Evaluation: 09/26/16 Time of Evaluation: 13:40 - Subjective Subjective: EXTUBATED CT CHEST NO PE CONT PRESENT ICU MANAGEMENT Objective - Vital Signs/Intake and Output Vital Signs (last 24 hours): Temp Pulse Resp BP Pulse Ox 98 F 68 11 L 151/72 H 100 09/26/16 04:00 09/26/16 12:01 09/26/16 12:01 09/26/16 12:01 09/26/16 12:01 Intake and Output: 09/26/16 09/26/16 11:59 23:59 Intake Total 900 550 Output Total 1345 Balance -445 550 - Medications Medications: Current Medications Albuterol/Ipratropium (Duoneb 3 Mg/0.5 Mg (3 Ml) Ud) 3 ml INH RQ6 [facility] Last Admin: 09/26/16 13:20 Dose: 3 ml Enoxaparin Sodium (Lovenox) 40 mg SC DAILY [facility] Last Admin: 09/26/16 09:39 Dose: 40 mg Famotidine (Pepcid) 20 mg PO BID [facility] Last Admin: 09/26/16 09:39 Dose: 20 mg Finasteride (Proscar) 5 mg PO DAILY [facility] Last Admin: 09/26/16 11:46 Dose: 5 mg Glipizide (Glucotrol) 5 mg PO DAILY [facility] Last Admin: 09/26/16 09:39 Dose: 5 mg Imipenem/Cilastatin Sodium 500 (mg/ Sodium Chloride) 100 mls @ 100 mls/hr IVPB Q6H [facility] Last Admin: 09/26/16 09:55 Dose: 100 mls/hr Insulin Glargine (Lantus) 10 unit SC HS [facility] Last Admin: 09/25/16 22:11 Dose: 10 units Insulin Human Regular (Novolin R) 0 unit SC ACHS [facility] PRN Reason: Protocol Last Admin: 09/26/16 11:39 Dose: 10 unit Metformin HCl (Glucophage) 1,000 mg PO BIDCC [facility] Methylprednisolone (Solu-Medrol) 20 mg IVP Q8 [facility] Last Admin: 09/26/16 09:41 Dose: 20 mg Potassium Phos/Sodium Phos (Neutra-Phos) 1 pkt PO Q8H [facility] Last Admin: 09/26/16 12:30 Dose: 1 pkt Promethazine HCl (Phenergan Syrup) 12.5 mg PO Q6 PRN PRN Reason: Cough Last Admin: 09/24/16 17:21 Dose: 12.5 mg Rosuvastatin Calcium (Crestor) 5 mg PO HS [facility] Last Admin: 09/25/16 22:09 Dose: 5 mg Tamsulosin HCl (Flomax) 0.4 mg PO DAILY [facility] Last Admin: 09/26/16 09:40 Dose: 0.4 mg - Labs Labs: 09/26/16 06:24 09/26/16 06:24 PT 15.6 SECONDS (9.7-12.2) H 09/22/16 23:14 INR 1.4 09/22/16 23:14 APTT 26 SECONDS (21-34) 09/22/16 23:14
[2016-09-26] MEDS: (Lantus) Insulin Glargine, Recombinant SC SCH (21:56)
--- NOTE | 2016-09-26 22:44 | CP.PCM.PN ---
Subjective - Date & Time of Evaluation Date of Evaluation: 09/26/16 Time of Evaluation: 22:44 - Subjective Subjective: CHIEF COMPLAINTS TODAY : EVENTS NOTED. AFEBRILE, VS NOTED REMAINS EXTUBATED LESS Wheezing. PATIENT VOIDING ON HIS OWN. Denies dysuria, or hematuria. ROS. HEENT : N. Resp : No cough,pleuritic CP ,or hemoptysis Cardio : No anginal CP, PND, orthopnea, palpitation GI : +VE SUPRAPUBIC abd.pain, NO n/v ,diarrhea or GI bleeding . ACID CORRECTION HAND : No headache, vertigo, focal deficit. Musculoskel : No joint swelling , Derm : No rash Psych : Normal affect. Ext : No swelling ,calf pain PE. Pt. is alert awake in no distress. V.S As noted in the chart Head ,ear nose,throat and eyes : Normal. Neck : Supple with normal carotids. Lungs: BILATERAL LESS WHEEZING Heart : S1 & S2 normal with S4. No murmur. Abd : Soft non tender with normal bowel sounds. TENDER SUPRAPUBIC Neuro : Moves all ext. with no localized deficit. Ext : No edema with intact pulses.Non tender calves Derm : No rashes or decubitus ulcer. LABS/RADIOLOGY: blood cultures +VE E. COLI- pansensitive. Urine culture -P wbc improving. cREATININE 0.7/bun 12 Objective - Vital Signs/Intake and Output Vital Signs (last 24 hours): Temp Pulse Resp BP Pulse Ox 97.2 F L 93 H 22 151/81 H 100 09/26/16 20:00 09/26/16 20:00 09/26/16 19:30 09/26/16 20:00 09/26/16 20:00 Intake and Output: 09/26/16 09/27/16 18:59 06:59 Intake Total 2200 50 Output Total 1195 150 Balance 1005 -100 - Medications Medications: Current Medications Albuterol/Ipratropium (Duoneb 3 Mg/0.5 Mg (3 Ml) Ud) 3 ml INH RQ6 [facility] Last Admin: 09/26/16 19:33 Dose: 3 ml Enoxaparin Sodium (Lovenox) 40 mg SC DAILY [facility] Last Admin: 09/26/16 09:39 Dose: 40 mg Famotidine (Pepcid) 20 mg PO BID [facility] Last Admin: 09/26/16 17:30 Dose: 20 mg Finasteride (Proscar) 5 mg PO DAILY [facility] Last Admin: 09/26/16 11:46 Dose: 5 mg Glipizide (Glucotrol) 5 mg PO DAILY [facility] Last Admin: 09/26/16 09:39 Dose: 5 mg Imipenem/Cilastatin Sodium 500 (mg/ Sodium Chloride) 100 mls @ 100 mls/hr IVPB Q6H [facility] Last Admin: 09/26/16 21:57 Dose: 100 mls/hr Insulin Glargine (Lantus) 10 unit SC [facility] Last Admin: 09/26/16 21:56 Dose: 10 units Insulin Human Regular (Novolin R) 0 unit SC ACHS [facility] PRN Reason: Protocol Last Admin: 09/26/16 21:56 Dose: 3 unit Metformin HCl (Glucophage) 1,000 mg PO BIDCC [facility] Methylprednisolone (Solu-Medrol) 20 mg IVP Q8 [facility] Last Admin: 09/26/16 21:58 Dose: 20 mg Potassium Phos/Sodium Phos (Neutra-Phos) 1 pkt PO Q8H [facility] Last Admin: 09/26/16 21:55 Dose: 1 pkt Promethazine HCl (Phenergan Syrup) 12.5 mg PO Q6 [facility] PRN Reason: Cough Last Admin: 09/24/16 17:21 Dose: 12.5 mg Rosuvastatin Calcium (Crestor) 5 mg PO [facility] Last Admin: 09/26/16 21:56 Dose: 5 mg Tamsulosin HCl (Flomax) 0.4 mg PO DAILY [facility] Last Admin: 09/26/16 09:40 Dose: 0.4 mg - Labs Labs: 09/26/16 06:24 09/26/16 06:24 PT 15.6 SECONDS (9.7-12.2) H 09/22/16 23:14 INR 1.4 09/22/16 23:14 APTT 26 SECONDS (21-34) 09/22/16 23:14 Assessment and Plan (1) Sepsis Status: Acute (2) Fever Status: Acute (3) UTI (urinary tract infection) Status: Acute (4) Hyponatremia Status: Acute (5) Diabetes mellitus Status: Acute (6) Rheumatoid arthritis Status: Acute - Assessment and Plan (Free Text) Plan: IMPRESSION; -GRAM-NEGATIVE SEPSIS- E.COLI SEPSIS -UROSEPSIS -HYPONATREMIA. -DIABETES MELLITUS-2 -RHEUMATOID ARTHRITIS. PLAN ; cONTINUE iv PRIMAXIN 500 MG EVERY 6 HOURLY. 09/23/16 START iv AMIKACIN 500 MG EVERY 24 HOURLY 09/24/16 ,09/25/16. FOLLOW-UP CULTURES TO ADJUST ANTIBIOTICS. F/U RENAL FUNCTIONS CLOSELY. iv FLUIDS PER ENGRAVED ROLLER INSPECTOR/PMD. CASE DISCUSSED WITH THE STAFF/PMD.
[2016-09-27] MEDS: Albuterol-Ipratrop 3 mg / 0.5 (3 ml) UD INH SCH ×4 (01:02→19:30)
[2016-09-27] MEDS: Potassium & Sodium Phosphate PO SCH ×3 (04:10→21:44)
[2016-09-27] MEDS: MethylPREDNISolone 40 mg Vial IVP SCH ×3 (05:54→21:37)
[2016-09-27 06:19] LABS: BASO % 0.1 % (0.0-2.0); HEMATOCRIT 29.8 % (35.0-51.0); LYMPH # 0.6 K/uL (1.0-4.3); LYMPH % 5.4 % (20.0-40.0); MEAN CELL VOLUME 78.4 fL (80.0-94.0); MEAN CORPUSCULAR HEMOGLOBIN 24.8 pg (27.0-31.0); MEAN CORPUSCULAR HGB CONC 31.7 g/dL (33.0-37.0); MEAN PLATELET VOLUME 9.5 fL (7.2-11.7); MONO # 1.1 K/uL (0.0-0.8); MONO % 9.9 % (0.0-10.0); PLATELET COUNT 180 K/uL (130-400); RED CELL DISTRIBUTION WIDTH 16.3 % (11.5-14.5); WHITE BLOOD COUNT 11.2 K/uL (4.8-10.8)
[2016-09-27 06:32] LABS: CHLORIDE 95 mmol/L (98-107)
[2016-09-27 06:33] LABS: POTASSIUM 3.5 mmol/L (3.6-5.2); SODIUM 132 mmol/L (132-148)
[2016-09-27 06:35] LABS: ALB/GLOB RATIO 1.1 (1.0-2.1); ALKALINE PHOSPHATASE 45 U/L (38-126); AST/SGOT 15 U/L (17-59); BILIRUBIN,TOTAL 0.4 mg/dL (0.2-1.3); BLOOD UREA NITROGEN 14 mg/dL (9-20); CARBON DIOXIDE 26 mmol/L (22-30); GFR AFRICAN-AMERICAN > 60; TOTAL PROTEIN 5.9 g/dL (6.3-8.3)
[2016-09-27 06:36] LABS: ALT/SGPT 22 U/L (21-72); CALCIUM 8.6 mg/dl (8.6-10.4); GLUCOSE,RANDOM 289 mg/dL (75-110); MAGNESIUM 1.5 mg/dL (1.6-2.3); PHOSPHOROUS 3.6 mg/dL (2.5-4.5)
[2016-09-27] MEDS: (Novolin R) Insulin Human Regular 100 units/ml vial SC SCH ×4 (08:00→21:39)
[2016-09-27 08:46] LABS: NEUTROPHIL 84 % (50-75); TOTAL CELLS COUNTED 100
[2016-09-27 08:47] LABS: LARGE PLATELETS PRESENT
[2016-09-27] MEDS: Enoxaparin 40 mg Syringe SC SCH (10:04)
--- NOTE | 2016-09-27 13:38 | CP.PCM.PN ---
Subjective - Date & Time of Evaluation Date of Evaluation: 09/27/16 Time of Evaluation: 13:36 - Subjective Subjective: CHIEF COMPLAINTS TODAY : LOWER ABD. PAIN SOB LESS /WHEEZING ROS. HEENT : N. Resp : No cough,pleuritic CP ,or hemoptysis Cardio : No anginal CP, PND, orthopnea, palpitation GI : No abd.pain, n/v ,diarrhea or GI bleeding . URBAN SOCIOLOGIST : No headache, vertigo, focal deficit. Musculoskel : No joint swelling , Derm : No rash Psych : Normal affect. Ext : No swelling ,calf pain PE. Pt. is alert awake in no distress. V.S As noted in the chart Head ,ear nose,throat and eyes : Normal. Neck : Supple with normal carotids. Lungs: JEREMY RONCHI Heart : S1 & S2 normal with S4. No murmur. Abd : Soft non tender with normal bowel sounds. TENDER SUPRAPUBIC Neuro : Moves all ext. with no localized deficit. Ext : No edema with intact pulses.Non tender calves Derm : No rashes or decubitus ulcer. LABS/RADIOLOGY: BC POS GRM. NEG RODS ASSESSMENT/PLAN : IV AB MAY NEED JULIA Objective - Vital Signs/Intake and Output Vital Signs (last 24 hours): Temp Pulse Resp BP Pulse Ox 98.6 F 59 L 20 139/63 100 09/27/16 08:00 09/27/16 08:00 09/27/16 08:00 09/27/16 08:00 09/27/16 08:00 Intake and Output: 09/27/16 09/27/16 11:59 23:59 Intake Total 1540 Output Total 1450 Balance 90 - Medications Medications: Current Medications Albuterol/Ipratropium (Duoneb 3 Mg/0.5 Mg (3 Ml) Ud) 3 ml INH RQ6 [facility] Last Admin: 09/27/16 13:19 Dose: 3 ml Enoxaparin Sodium (Lovenox) 40 mg SC DAILY [facility] Last Admin: 09/27/16 10:04 Dose: 40 mg Famotidine (Pepcid) 20 mg PO BID [facility] Last Admin: 09/27/16 10:03 Dose: 20 mg Finasteride (Proscar) 5 mg PO DAILY [facility] Last Admin: 09/27/16 10:03 Dose: 5 mg Glipizide (Glucotrol) 5 mg PO DAILY [facility] Last Admin: 09/27/16 10:03 Dose: 5 mg Imipenem/Cilastatin Sodium 500 (mg/ Sodium Chloride) 100 mls @ 100 mls/hr IVPB Q6H [facility] Last Admin: 09/27/16 10:04 Dose: 100 mls/hr Insulin Glargine (Lantus) 10 unit SC HS [facility] Last Admin: 09/26/16 21:56 Dose: 10 units Insulin Human Regular (Novolin R) 0 unit SC ACHS [facility] PRN Reason: Protocol Last Admin: 09/27/16 12:26 Dose: 6 unit Metformin HCl (Glucophage) 1,000 mg PO BIDCC [facility] Last Admin: 09/27/16 07:48 Dose: 1,000 mg Methylprednisolone (Solu-Medrol) 20 mg IVP Q8 [facility] Last Admin: 09/27/16 13:20 Dose: 20 mg Potassium Phos/Sodium Phos (Neutra-Phos) 1 pkt PO Q8H [facility] Last Admin: 09/27/16 13:20 Dose: 1 pkt Promethazine HCl (Phenergan Syrup) 12.5 mg PO Q6 [facility]N PRN Reason: Cough Last Admin: 09/24/16 17:21 Dose: 12.5 mg Rosuvastatin Calcium (Crestor) 5 mg PO HS [facility] Last Admin: 09/26/16 21:56 Dose: 5 mg Tamsulosin HCl (Flomax) 0.4 mg PO DAILY [facility] Last Admin: 09/27/16 10:03 Dose: 0.4 mg - Labs Labs: 09/27/16 06:15 09/27/16 06:15 PT 15.6 SECONDS (9.7-12.2) H 09/22/16 23:14 INR 1.4 09/22/16 23:14 APTT 26 SECONDS (21-34) 09/22/16 23:14
--- NOTE | 2016-09-27 21:11 | CP.PCM.PN ---
Subjective - Date & Time of Evaluation Date of Evaluation: 09/27/16 Time of Evaluation: 21:11 - Subjective Subjective: AFEBRILE, VS NOTED REMAINS EXTUBATED -VE SOB PATIENT VOIDING ON HIS OWN. Denies dysuria, or hematuria. C/O LOOSE BOWEL MOVEMENTS ROS. HEENT : N. Resp : No cough,pleuritic CP ,or hemoptysis Cardio : No anginal CP, PND, orthopnea, palpitation GI : +VE SUPRAPUBIC abd.pain, NO n/v ,diarrhea or GI bleeding . OUTSIDE PRODUCTION INSPECTOR : No headache, vertigo, focal deficit. Musculoskel : No joint swelling , Derm : No rash Psych : Normal affect. Ext : No swelling ,calf pain PE. Pt. is alert awake in no distress. V.S As noted in the chart Head ,ear nose,throat and eyes : Normal. Neck : Supple with normal carotids. Lungs: BILATERAL LESS WHEEZING Heart : S1 & S2 normal with S4. No murmur. Abd : Soft non tender with normal bowel sounds. TENDER SUPRAPUBIC Neuro : Moves all ext. with no localized deficit. Ext : No edema with intact pulses.Non tender calves Derm : No rashes or decubitus ulcer. LABS/RADIOLOGY: blood cultures +VE E. COLI- pansensitive. Urine culture -GNR Objective - Vital Signs/Intake and Output Vital Signs (last 24 hours): Temp Pulse Resp BP Pulse Ox 97.7 F 79 22 159/63 H 100 09/27/16 20:00 09/27/16 20:00 09/27/16 20:00 09/27/16 20:00 09/27/16 16:00 Intake and Output: 09/27/16 09/28/16 18:59 06:59 Intake Total 240 Output Total 300 Balance -60 - Medications Medications: Current Medications Albuterol/Ipratropium (Duoneb 3 Mg/0.5 Mg (3 Ml) Ud) 3 ml INH RQ6 [facility] Last Admin: 09/27/16 19:30 Dose: 3 ml Enoxaparin Sodium (Lovenox) 40 mg SC DAILY [facility] Last Admin: 09/27/16 10:04 Dose: 40 mg Famotidine (Pepcid) 20 mg PO BID [facility] Last Admin: 09/27/16 17:30 Dose: 20 mg Finasteride (Proscar) 5 mg PO DAILY [facility] Last Admin: 09/27/16 10:03 Dose: 5 mg Glipizide (Glucotrol) 5 mg PO DAILY [facility] Last Admin: 09/27/16 10:03 Dose: 5 mg Imipenem/Cilastatin Sodium 500 (mg/ Sodium Chloride) 100 mls @ 100 mls/hr IVPB Q6H [facility] Last Admin: 09/27/16 16:29 Dose: 100 mls/hr Insulin Glargine (Lantus) 10 unit SC [facility] Last Admin: 09/26/16 21:56 Dose: 10 units Insulin Human Regular (Novolin R) 0 unit SC ACHS [facility] PRN Reason: Protocol Last Admin: 09/27/16 16:27 Dose: Not Given Metformin HCl (Glucophage) 1,000 mg PO BIDCC [facility] Last Admin: 09/27/16 16:29 Dose: 1,000 mg Methylprednisolone (Solu-Medrol) 20 mg IVP Q8 [facility] Last Admin: 09/27/16 13:20 Dose: 20 mg Potassium Phos/Sodium Phos (Neutra-Phos) 1 pkt PO Q8H [facility] Last Admin: 09/27/16 13:20 Dose: 1 pkt Promethazine HCl (Phenergan Syrup) 12.5 mg PO Q6 PRN PRN Reason: Cough Last Admin: 09/24/16 17:21 Dose: 12.5 mg Rosuvastatin Calcium (Crestor) 5 mg PO [facility] Last Admin: 09/26/16 21:56 Dose: 5 mg Tamsulosin HCl (Flomax) 0.4 mg PO DAILY [facility] Last Admin: 09/27/16 10:03 Dose: 0.4 mg - Labs Labs: 09/27/16 06:15 09/27/16 06:15 PT 15.6 SECONDS (9.7-12.2) H 09/22/16 23:14 INR 1.4 09/22/16 23:14 APTT 26 SECONDS (21-34) 09/22/16 23:14 Assessment and Plan (1) Sepsis Status: Acute (2) Fever Status: Acute (3) UTI (urinary tract infection) Status: Acute (4) Hyponatremia Status: Acute (5) Diabetes mellitus Status: Acute (6) Rheumatoid arthritis Status: Acute - Assessment and Plan (Free Text) Assessment: IMPRESSION; -GRAM-NEGATIVE SEPSIS- E.COLI SEPSIS -UROSEPSIS-GNR 10-50,000-no identification done. -HYPONATREMIA. -DIABETES MELLITUS-2 -RHEUMATOID ARTHRITIS. -DIARRHEA NEW ONSET R/O PMC PLAN ; cONTINUE iv PRIMAXIN 500 MG EVERY 6 HOURLY. 09/23/16 OFF iv AMIKACIN 500 MG EVERY 24 HOURLY 09/24/16 ,09/25/16. FOLLOW-UP repeat blood cultures and urine cultures 09/26/16. F/U RENAL FUNCTIONS CLOSELY. CHECK STOOL FOR c. DIFFICILE. iv FLUIDS PER COOKING TEACHER/PMD. CASE DISCUSSED WITH THE STAFF/PMD.
[2016-09-27] MEDS: (Lantus) Insulin Glargine, Recombinant SC SCH (21:37)
[2016-09-28] MEDS: Albuterol-Ipratrop 3 mg / 0.5 (3 ml) UD INH SCH ×4 (01:09→19:52)
[2016-09-28 03:38] VITALS: RESP 20
[2016-09-28] MEDS: MethylPREDNISolone 40 mg Vial IVP SCH ×4 (05:06→21:39)
[2016-09-28] MEDS: Potassium & Sodium Phosphate PO SCH ×3 (05:06→21:38)
[2016-09-28] MEDS: (Novolin R) Insulin Human Regular 100 units/ml vial SC SCH ×4 (08:13→21:55)
[2016-09-28] MEDS: Enoxaparin 40 mg Syringe SC SCH (09:48)
[2016-09-28] MEDS: Promethazine 12.5 mg/10 ml Syrup PO PRN (09:49)
--- NOTE | 2016-09-28 13:52 | CP.PCM.PN ---
Subjective - Date & Time of Evaluation Date of Evaluation: 09/28/16 Time of Evaluation: 13:51 - Subjective Subjective: CHIEF COMPLAINTS TODAY : LOOSE BM ROS. HEENT : N. Resp : No cough,pleuritic CP ,or hemoptysis Cardio : No anginal CP, PND, orthopnea, palpitation GI : No abd.pain, n/v ,diarrhea or GI bleeding . MOTOR POLARIZER : No headache, vertigo, focal deficit. Musculoskel : No joint swelling , Derm : No rash Psych : Normal affect. Ext : No swelling ,calf pain PE. Pt. is alert awake in no distress. V.S As noted in the chart Head ,ear nose,throat and eyes : Normal. Neck : Supple with normal carotids. Lungs: JEREMY RONCHI Heart : S1 & S2 normal with S4. No murmur. Abd : Soft non tender with normal bowel sounds. TENDER SUPRAPUBIC Neuro : Moves all ext. with no localized deficit. Ext : No edema with intact pulses.Non tender calves Derm : No rashes or decubitus ulcer. LABS/RADIOLOGY: BC POS GRM. NEG RODS ASSESSMENT/PLAN : IV AB MAY NEED JULIA CHECK C. DIFF Objective - Vital Signs/Intake and Output Vital Signs (last 24 hours): Temp Pulse Resp BP Pulse Ox 97.6 F 95 H 20 123/72 95 09/28/16 08:24 09/28/16 08:24 09/28/16 08:24 09/28/16 08:24 09/28/16 08:24 Intake and Output: 09/28/16 09/28/16 11:59 23:59 Intake Total 100 Balance 100 - Medications Medications: Current Medications Albuterol/Ipratropium (Duoneb 3 Mg/0.5 Mg (3 Ml) Ud) 3 ml INH RQ6 [facility] Last Admin: 09/28/16 13:47 Dose: 3 ml Enoxaparin Sodium (Lovenox) 40 mg SC DAILY [facility] Last Admin: 09/28/16 09:48 Dose: 40 mg Famotidine (Pepcid) 20 mg PO BID [facility] Last Admin: 09/28/16 09:49 Dose: 20 mg Finasteride (Proscar) 5 mg PO DAILY [facility] Last Admin: 09/28/16 10:17 Dose: 5 mg Glipizide (Glucotrol) 5 mg PO DAILY [facility] Last Admin: 09/28/16 09:49 Dose: 5 mg Imipenem/Cilastatin Sodium 500 (mg/ Sodium Chloride) 100 mls @ 100 mls/hr IVPB Q6H [facility] Last Admin: 09/28/16 09:48 Dose: 100 mls/hr Insulin Glargine (Lantus) 10 unit SC HS [facility] Last Admin: 09/27/16 21:37 Dose: 10 units Insulin Human Regular (Novolin R) 0 unit SC ACHS [facility] PRN Reason: Protocol Last Admin: 09/28/16 12:18 Dose: 6 unit Metformin HCl (Glucophage) 1,000 mg PO BIDCC [facility] Last Admin: 09/28/16 08:13 Dose: 1,000 mg Methylprednisolone (Solu-Medrol) 20 mg IVP Q8 [facility] Last Admin: 09/28/16 12:57 Dose: 20 mg Potassium Phos/Sodium Phos (Neutra-Phos) 1 pkt PO Q8H [facility] Last Admin: 09/28/16 12:56 Dose: 1 pkt Promethazine HCl (Phenergan Syrup) 12.5 mg PO Q6 PRN PRN Reason: Cough Last Admin: 09/28/16 09:49 Dose: 12.5 mg Rosuvastatin Calcium (Crestor) 5 mg PO HS [facility] Last Admin: 09/27/16 21:36 Dose: 5 mg Tamsulosin HCl (Flomax) 0.4 mg PO DAILY [facility] Last Admin: 09/28/16 09:49 Dose: 0.4 mg - Labs Labs: 09/27/16 06:15 09/27/16 06:15 PT 15.6 SECONDS (9.7-12.2) H 09/22/16 23:14 INR 1.4 09/22/16 23:14 APTT 26 SECONDS (21-34) 09/22/16 23:14
--- NOTE | 2016-09-28 14:26 | CP.PCM.PN ---
Subjective - Date & Time of Evaluation Date of Evaluation: 09/28/16 Time of Evaluation: 14:26 - Subjective Subjective: AFEBRILE, VS NOTED FEELING BETTER -VE SOB PATIENT VOIDING ON HIS OWN. Denies dysuria, or hematuria. ROS. HEENT : N. Resp : No cough,pleuritic CP ,or hemoptysis Cardio : No anginal CP, PND, orthopnea, palpitation GI : +VE SUPRAPUBIC abd.pain, NO n/v ,diarrhea or GI bleeding . 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 Musculoskel : No joint swelling , Derm : No rash Psych : Normal affect. Ext : No swelling ,calf pain PE. Pt. is alert awake in no distress. V.S As noted in the chart Head ,ear nose,throat and eyes : Normal. Neck : Supple with normal carotids. Lungs: BILATERAL LESS WHEEZING Heart : S1 & S2 normal with S4. No murmur. Abd : Soft non tender with normal bowel sounds. TENDER SUPRAPUBIC Neuro : Moves all ext. with no localized deficit. Ext : No edema with intact pulses.Non tender calves Derm : No rashes or decubitus ulcer. LABS/RADIOLOGY: blood cultures +VE E. COLI- pansensitive. Urine culture -GNR STOOL C.DIFFICILE -VE Objective - Vital Signs/Intake and Output Vital Signs (last 24 hours): Temp Pulse Resp BP Pulse Ox 97.6 F 95 H 20 123/72 95 09/28/16 08:24 09/28/16 08:24 09/28/16 08:24 09/28/16 08:24 09/28/16 08:24 Intake and Output: 09/28/16 09/28/16 06:59 18:59 Intake Total 220 Output Total 300 Balance -80 - Medications Medications: Current Medications Albuterol/Ipratropium (Duoneb 3 Mg/0.5 Mg (3 Ml) Ud) 3 ml INH RQ6 [facility] Last Admin: 09/28/16 13:47 Dose: 3 ml Enoxaparin Sodium (Lovenox) 40 mg SC DAILY [facility] Last Admin: 09/28/16 09:48 Dose: 40 mg Famotidine (Pepcid) 20 mg PO BID [facility] Last Admin: 09/28/16 09:49 Dose: 20 mg Finasteride (Proscar) 5 mg PO DAILY [facility] Last Admin: 09/28/16 10:17 Dose: 5 mg Glipizide (Glucotrol) 5 mg PO DAILY [facility] Last Admin: 09/28/16 09:49 Dose: 5 mg Imipenem/Cilastatin Sodium 500 (mg/ Sodium Chloride) 100 mls @ 100 mls/hr IVPB Q6H [facility] Last Admin: 09/28/16 09:48 Dose: 100 mls/hr Insulin Glargine (Lantus) 10 unit SC [facility] Last Admin: 09/27/16 21:37 Dose: 10 units Insulin Human Regular (Novolin R) 0 unit SC ACHS [facility] PRN Reason: Protocol Last Admin: 09/28/16 12:18 Dose: 6 unit Metformin HCl (Glucophage) 1,000 mg PO BIDCC [facility] Last Admin: 09/28/16 08:13 Dose: 1,000 mg Methylprednisolone (Solu-Medrol) 20 mg IVP Q8 [facility] Last Admin: 09/28/16 12:57 Dose: 20 mg Potassium Phos/Sodium Phos (Neutra-Phos) 1 pkt PO Q8H [facility] Last Admin: 09/28/16 12:56 Dose: 1 pkt Promethazine HCl (Phenergan Syrup) 12.5 mg PO Q6 PRN PRN Reason: Cough Last Admin: 09/28/16 09:49 Dose: 12.5 mg Rosuvastatin Calcium (Crestor) 5 mg PO [facility] Last Admin: 09/27/16 21:36 Dose: 5 mg Tamsulosin HCl (Flomax) 0.4 mg PO DAILY [facility] Last Admin: 09/28/16 09:49 Dose: 0.4 mg - Labs Labs: 09/27/16 06:15 09/27/16 06:15 PT 15.6 SECONDS (9.7-12.2) H 09/22/16 23:14 INR 1.4 09/22/16 23:14 APTT 26 SECONDS (21-34) 09/22/16 23:14 Assessment and Plan (1) Sepsis Status: Acute (2) Fever Status: Acute (3) UTI (urinary tract infection) Status: Acute (4) Hyponatremia Status: Acute (5) Diabetes mellitus Status: Acute (6) Rheumatoid arthritis Status: Acute - Assessment and Plan (Free Text) Assessment: IMPRESSION; - E.COLI BACTEREMIA/SEPSIS -UROSEPSIS-GNR 10-50,000-no identification done. -HYPONATREMIA. -DIABETES MELLITUS-2 -RHEUMATOID ARTHRITIS. -DIARRHEA - C.DIFFICILE PLAN ; cONTINUE iv PRIMAXIN 500 MG EVERY 8 HOURLY. 09/23/16 OFF iv AMIKACIN 500 MG EVERY 24 HOURLY 09/24/16 ,09/25/16. FOLLOW-UP repeat blood cultures and urine cultures 09/26/16. F/U RENAL FUNCTIONS CLOSELY. IV FLUIDS PER PMD.
[2016-09-28] MEDS: (Lantus) Insulin Glargine, Recombinant SC SCH (21:59)
[2016-09-29] MEDS: Albuterol-Ipratrop 3 mg / 0.5 (3 ml) UD INH SCH ×3 (01:44→13:38)
[2016-09-29] MEDS: MethylPREDNISolone 40 mg Vial IVP SCH ×3 (05:19→21:59)
[2016-09-29] MEDS: Potassium & Sodium Phosphate PO SCH ×3 (05:32→21:59)
[2016-09-29] MEDS: (Novolin R) Insulin Human Regular 100 units/ml vial SC SCH ×4 (07:52→22:08)
[2016-09-29] MEDS: Enoxaparin 40 mg Syringe SC SCH (09:43)
[2016-09-29] MEDS: Promethazine 12.5 mg/10 ml Syrup PO PRN (09:44)
--- NOTE | 2016-09-29 14:17 | CP.PCM.PN ---
Subjective - Date & Time of Evaluation Date of Evaluation: 09/29/16 Time of Evaluation: 14:16 - Subjective Subjective: CHIEF COMPLAINTS TODAY : NO FURTHER DYSURIA ROS. HEENT : N. Resp : No cough,pleuritic CP ,or hemoptysis Cardio : No anginal CP, PND, orthopnea, palpitation GI : No abd.pain, n/v ,diarrhea or GI bleeding . JEWEL GAUGER : No headache, vertigo, focal deficit. Musculoskel : No joint swelling , Derm : No rash Psych : Normal affect. Ext : No swelling ,calf pain PE. Pt. is alert awake in no distress. V.S As noted in the chart Head ,ear nose,throat and eyes : Normal. Neck : Supple with normal carotids. Lungs: JEREMY RONCHI Heart : S1 & S2 normal with S4. No murmur. Abd : Soft non tender with normal bowel sounds. TENDER SUPRAPUBIC Neuro : Moves all ext. with no localized deficit. Ext : No edema with intact pulses.Non tender calves Derm : No rashes or decubitus ulcer. LABS/RADIOLOGY: BC POS GRM. NEG RODS ASSESSMENT/PLAN : IV AB Objective - Vital Signs/Intake and Output Vital Signs (last 24 hours): Temp Pulse Resp BP Pulse Ox 97.9 F 92 H 20 126/73 95 09/29/16 08:46 09/29/16 08:46 09/29/16 08:46 09/29/16 08:46 09/29/16 08:46 Intake and Output: 09/29/16 09/29/16 11:59 23:59 Intake Total 220 Balance 220 - Medications Medications: Current Medications Albuterol/Ipratropium (Duoneb 3 Mg/0.5 Mg (3 Ml) Ud) 3 ml INH RQ6 [facility] Last Admin: 09/29/16 13:38 Dose: 3 ml Enoxaparin Sodium (Lovenox) 40 mg SC DAILY [facility] Last Admin: 09/29/16 09:43 Dose: 40 mg Famotidine (Pepcid) 20 mg PO BID [facility] Last Admin: 09/29/16 09:43 Dose: 20 mg Finasteride (Proscar) 5 mg PO DAILY [facility] Last Admin: 09/29/16 11:00 Dose: 5 mg Glipizide (Glucotrol) 5 mg PO DAILY [facility] Last Admin: 09/29/16 09:43 Dose: 5 mg Insulin Glargine (Lantus) 10 unit SC HS [facility] Last Admin: 09/28/16 21:59 Dose: 10 units Insulin Human Regular (Novolin R) 0 unit SC ACHS [facility] PRN Reason: Protocol Last Admin: 09/29/16 11:51 Dose: 6 unit Metformin HCl (Glucophage) 1,000 mg PO BIDCC [facility] Last Admin: 09/29/16 07:51 Dose: 1,000 mg Methylprednisolone (Solu-Medrol) 20 mg IVP Q8 [facility] Last Admin: 09/29/16 13:59 Dose: 20 mg Potassium Phos/Sodium Phos (Neutra-Phos) 1 pkt PO Q8H [facility] Last Admin: 09/29/16 13:00 Dose: 1 pkt Promethazine HCl (Phenergan Syrup) 12.5 mg PO Q6 PRN PRN Reason: Cough Last Admin: 09/29/16 09:44 Dose: 12.5 mg Rosuvastatin Calcium (Crestor) 5 mg PO [facility] Last Admin: 09/28/16 21:40 Dose: 5 mg Tamsulosin HCl (Flomax) 0.4 mg PO DAILY [facility] Last Admin: 09/29/16 09:43 Dose: 0.4 mg - Labs Labs: 09/27/16 06:15 09/27/16 06:15 PT 15.6 SECONDS (9.7-12.2) H 09/22/16 23:14 INR 1.4 09/22/16 23:14 APTT 26 SECONDS (21-34) 09/22/16 23:14
[2016-09-29] MEDS: (Lantus) Insulin Glargine, Recombinant SC SCH (21:58)
[2016-09-30] MEDS: Potassium & Sodium Phosphate PO SCH ×2 (06:17→13:00)
[2016-09-30] MEDS: MethylPREDNISolone 40 mg Vial IVP SCH ×2 (06:20→13:45)
[2016-09-30 07:51] LABS: HEMATOCRIT 35.5 % (35.0-51.0); LYMPH # 1.7 K/uL (1.0-4.3); LYMPH % 12.2 % (20.0-40.0); MEAN CELL VOLUME 77.4 fL (80.0-94.0); MEAN CORPUSCULAR HEMOGLOBIN 25.2 pg (27.0-31.0); MEAN CORPUSCULAR HGB CONC 32.5 g/dL (33.0-37.0); MEAN PLATELET VOLUME 8.5 fL (7.2-11.7); MONO # 1.2 K/uL (0.0-0.8); MONO % 8.9 % (0.0-10.0); NRBC % 0.1 % (0.0-2.0); RED CELL DISTRIBUTION WIDTH 16.9 % (11.5-14.5); WHITE BLOOD COUNT 13.9 K/uL (4.8-10.8)
[2016-09-30] MEDS: (Novolin R) Insulin Human Regular 100 units/ml vial SC SCH ×2 (07:51→11:46)
[2016-09-30 07:58] LABS: POTASSIUM 3.9 mmol/L (3.6-5.2); SODIUM 132 mmol/L (132-148)
[2016-09-30 08:00] LABS: ALB/GLOB RATIO 1.1 (1.0-2.1); AST/SGOT 18 U/L (17-59); BILIRUBIN,DIRECT 0.4 mg/dL (0.0-0.4); BILIRUBIN,TOTAL 0.6 mg/dL (0.2-1.3); BLOOD UREA NITROGEN 11 mg/dL (9-20); CARBON DIOXIDE 35 mmol/L (22-30); GFR AFRICAN-AMERICAN > 60; TOTAL PROTEIN 6.4 g/dL (6.3-8.3)
[2016-09-30 08:01] LABS: ALKALINE PHOSPHATASE 41 U/L (38-126); ALT/SGPT 32 U/L (21-72); CALCIUM 9.3 mg/dl (8.6-10.4); GLUCOSE,RANDOM 170 mg/dL (75-110)
[2016-09-30 08:49] LABS: CHLORIDE 85 mmol/L (98-107)
[2016-09-30] MEDS: Enoxaparin 40 mg Syringe SC SCH (09:30)
--- NOTE | 2016-09-30 12:27 | CP.PCM.PN ---
Subjective - Date & Time of Evaluation Date of Evaluation: 09/30/16 Time of Evaluation: 12:27 - Subjective Subjective: AFEBRILE DENIES SOB DENIES DYSURIA OR HESITANCY VOIDING ON HIS OWN. ANXIOUS TO GO HOME. Objective - Vital Signs/Intake and Output Vital Signs (last 24 hours): Temp Pulse Resp BP Pulse Ox 98.7 F 111 H 20 140/71 95 09/30/16 08:24 09/30/16 08:24 09/30/16 08:24 09/30/16 08:24 09/30/16 08:24 Intake and Output: 09/30/16 09/30/16 06:59 18:59 Intake Total 200 Output Total 500 Balance -300 - Medications Medications: Current Medications Famotidine (Pepcid) 20 mg PO BID [facility] Last Admin: 09/30/16 09:29 Dose: 20 mg Finasteride (Proscar) 5 mg PO DAILY [facility] Last Admin: 09/30/16 10:57 Dose: 5 mg Glipizide (Glucotrol) 5 mg PO DAILY [facility] Last Admin: 09/30/16 09:30 Dose: 5 mg Imipenem/Cilastatin Sodium 500 (mg/ Sodium Chloride) 100 mls @ 100 mls/hr IVPB Q8H [facility] Last Admin: 09/30/16 09:37 Dose: Not Given Insulin Glargine (Lantus) 10 unit SC [facility] Last Admin: 09/29/16 21:58 Dose: 10 units Insulin Human Regular (Novolin R) 0 unit SC ACHS [facility] PRN Reason: Protocol Last Admin: 09/30/16 11:46 Dose: 4 unit Metformin HCl (Glucophage) 1,000 mg PO BIDCC [facility] Last Admin: 09/30/16 07:51 Dose: 1,000 mg Methylprednisolone (Solu-Medrol) 20 mg IVP Q8 [facility] Last Admin: 09/30/16 06:20 Dose: 20 mg Potassium Phos/Sodium Phos (Neutra-Phos) 1 pkt PO Q8H [facility] Last Admin: 09/30/16 06:17 Dose: 1 pkt Promethazine HCl (Phenergan Syrup) 12.5 mg PO Q6 [facility] PRN Reason: Cough Last Admin: 09/29/16 09:44 Dose: 12.5 mg Rosuvastatin Calcium (Crestor) 5 mg PO [facility] Last Admin: 09/29/16 21:59 Dose: 5 mg Tamsulosin HCl (Flomax) 0.4 mg PO DAILY [facility] Last Admin: 09/30/16 09:30 Dose: 0.4 mg - Labs Labs: 09/30/16 07:43 09/30/16 07:43 PT 15.6 SECONDS (9.7-12.2) H 09/22/16 23:14 INR 1.4 09/22/16 23:14 APTT 26 SECONDS (21-34) 09/22/16 23:14 - Constitutional Appears: No Acute Distress - Head Exam Head Exam: NORMAL INSPECTION - Eye Exam Eye Exam: EOMI, PERRL - ENT Exam ENT Exam: Normal Oropharynx - Respiratory Exam Respiratory Exam: Clear to Ausculation Bilateral. absent: Wheezes - Cardiovascular Exam Cardiovascular Exam: REGULAR RHYTHM, +S1, +S2 - GI/Abdominal Exam GI & Abdominal Exam: Soft, Normal Bowel Sounds - Extremities Exam Extremities Exam: Normal Capillary Refill. absent: Calf Tenderness, Pedal Edema , Tenderness - Neurological Exam Neurological Exam: Alert, Awake, CN II-XII Intact, Normal Gait, Oriented x3, Reflexes Normal - Psychiatric Exam Psychiatric exam: Normal Mood - Skin Skin Exam: Normal Color, Warm Assessment and Plan (1) Sepsis Status: Acute (2) Fever Status: Acute (3) UTI (urinary tract infection) Status: Acute (4) Hyponatremia Status: Acute (5) Diabetes mellitus Status: Acute (6) Rheumatoid arthritis Status: Acute - Assessment and Plan (Free Text) Assessment: IMPRESSION; - E.COLI BACTEREMIA/SEPSIS -UROSEPSIS-GNR 10-50,000-no identification done. -HYPONATREMIA. -DIABETES MELLITUS-2 -RHEUMATOID ARTHRITIS. -DIARRHEA - C.DIFFICILE PLAN ; DC iv PRIMAXIN 500 MG EVERY 8 HOURLY. 09/23/16- 09/30/16 OFF iv AMIKACIN 500 MG EVERY 24 HOURLY 09/24/16 ,09/25/16. FOLLOW-UP repeat blood cultures and urine cultures 09/26/16. DONE TODAY 09/30/16 PT CAN BE DISCHARGED AFTER BLOOD CULTURES /AND URINE CULTURES ON PO CIPRO 250 MG BID X 7 DAYS . PO BACID 1 TAB PO HS. X 7DAYS F/U IN OFFICE NEXT WEEK .
--- NOTE | 2016-09-30 12:55 | CP.PCM.DIS ---
Provider - Provider Date of Admission: 09/23/16 00:00 Attending physician: Yasmeen Olivas MD Primary care physician: Solomon Ball MD Time Spent in preparation of Discharge (in minutes): 35 Hospital Course - Lab Results Lab Results: Micro Results 09/28/16 06:20 Nose MRSA Culture - Final MRSA NOT DETECTED 09/23/16 01:56 Nose MRSA Culture (Admit) - Final MRSA NOT DETECTED Most Recent Lab Values WBC 13.9 K/uL (4.8-10.8) H 09/30/16 07:43 RBC 4.58 Mil/uL (4.40-5.90) 09/30/16 07:43 Hgb 11.5 g/dL (12.0-18.0) L D 09/30/16 07:43 Hct 35.5 % (35.0-51.0) 09/30/16 07:43 MCV 77.4 fL (80.0-94.0) L 09/30/16 07:43 MCH 25.2 pg (27.0-31.0) L 09/30/16 07:43 MCHC 32.5 g/dL (33.0-37.0) L 09/30/16 07:43 RDW 16.9 % (11.5-14.5) H 09/30/16 07:43 Plt Count 366 K/uL (130-400) D 09/30/16 07:43 MPV 8.5 fL (7.2-11.7) 09/30/16 07:43 Neut % (Auto) 78.9 % (50.0-75.0) H 09/30/16 07:43 Lymph % (Auto) 12.2 % (20.0-40.0) L 09/30/16 07:43 [place] % (Auto) 8.9 % (0.0-10.0) 09/30/16 07:43 Eos % (Auto) 0.0 % (0.0-4.0) 09/30/16 07:43 Baso % (Auto) 0.0 % (0.0-2.0) 09/30/16 07:43 Neut # 10.9 K/uL (1.8-7.0) H 09/30/16 07:43 Lymph # 1.7 K/uL (1.0-4.3) 09/30/16 07:43 [place] # 1.2 K/uL (0.0-0.8) H 09/30/16 07:43 Eos # 0.0 K/uL (0.0-0.7) 09/30/16 07:43 Baso # 0.0 K/uL (0.0-0.2) 09/30/16 07:43 Neutrophils % (Manual) 84 % (50-75) H 09/27/16 06:15 Band Neutrophils % 3 % (0-2) H 09/27/16 06:15 Lymphocytes % (Manual) 6 % (20-40) L 09/27/16 06:15 Monocytes % (Manual) 7 % (0-10) 09/27/16 06:15 Myelocytes % 1 % (0-0) H 09/24/16 14:07 Nucleated RBC % 1 % (0-0) H 09/25/16 06:24 Toxic Granulation Present 09/22/16 23:12 Platelet Estimate Normal (NORMAL) 09/27/16 06:15 Large Platelets Present 09/27/16 06:15 Giant Platelets Present 09/24/16 14:07 Polychromasia Slight 09/24/16 14:07 Hypochromasia (manual) Slight 09/27/16 06:15 Poikilocytosis (manual Slight 09/27/16 06:15 Anisocytosis (manual) Slight 09/27/16 06:15 Microcytosis (manual) Slight 09/25/16 06:24 Ovalocytes Slight 09/27/16 06:15 Idanha Cells Slight 09/25/16 06:24 PT 15.6 SECONDS (9.7-12.2) H 09/22/16 23:14 INR 1.4 09/22/16 23:14 APTT 26 SECONDS (21-34) 09/22/16 23:14 D-Dimer, Quantitative 991 ng/mlDDU (0-243) H 09/25/16 09:32 Puncture Site Lb 09/25/16 04:15 pCO2 34 mm/Hg (35-45) L 09/25/16 04:15 pO2 121 mm/Hg (80-100) H 09/25/16 04:15 HCO3 24.9 mmol/L (21-28) 09/25/16 04:15 ABG pH 7.45 (7.35-7.45) 09/25/16 04:15 ABG Total CO2 24.6 mmol/L (22-28) 09/25/16 04:15 ABG O2 Saturation 98.5 % (95-98) H 09/25/16 04:15 ABG Base Excess -0.1 mmol/L (-2.0-3.0) 09/25/16 04:15 ABG Hemoglobin 9.9 g/dL (11.7-17.4) L 09/25/16 04:15 ABG Carboxyhemoglobin 0.9 % (0.5-1.5) 09/25/16 04:15 POC ABG HHb (Measured) 1.5 % (0.0-5.0) 09/25/16 04:15 ABG Methemoglobin 1.0 % (0.0-3.0) 09/25/16 04:15 Kenneth Test Na 09/25/16 04:15 ABG Potassium 1.8 mmol/L (3.6-5.2) L* 09/24/16 20:20 VBG pH 7.31 (7.32-7.43) L 09/24/16 05:11 VBG pCO2 36 mmHg (40-60) L 09/24/16 05:11 VBG HCO3 17.7 mmol/L 09/24/16 05:11 VBG Total CO2 19.2 mmol/L (22-28) L 09/24/16 05:11 VBG O2 Sat (Calc) 57.7 % (40-65) 09/24/16 05:11 VBG Base Excess -7.4 mmol/L (0.0-2.0) L 09/24/16 05:11 VBG Potassium 4.3 mmol/L (3.6-5.2) 09/24/16 05:11 A-a O2 Difference 50.0 mm/Hg 09/25/16 04:15 Respiratory Index 0.4 09/25/16 04:15 Hgb O2 Saturation 96.6 % (95.0-98.0) 09/25/16 04:15 Sodium 148.0 mmol/l (132-148) 09/24/16 20:20 Chloride 128.0 mmol/L (98-107) H 09/24/16 20:20 Glucose 49 mg/dl (75-110) L 09/24/16 20:20 Lactate 1.0 mmol/L (0.7-2.1) 09/24/16 20:20 Mechanical Rate 12 09/25/16 04:15 FiO2 30.0 % 09/25/16 04:15 Tidal Volume 450 09/25/16 04:15 PEEP 5 09/25/16 04:15 Crit Value Called To Dr winston 09/24/16 20:20 Crit Value Called By [facility] 09/24/16 20:20 Crit Value Read Back Y 09/24/16 20:20 Blood Gas Notified Time 202409/24/16 20:20 Sodium 132 mmol/L (132-148) 09/30/16 07:43 Potassium 3.9 mmol/L (3.6-5.2) 09/30/16 07:43 Chloride 85 mmol/L (98-107) L 09/30/16 07:43 Carbon Dioxide 35 mmol/L (22-30) H 09/30/16 07:43 Anion Gap 17 (10-20) 09/30/16 07:43 BUN 11 mg/dL (9-20) 09/30/16 07:43 Creatinine 0.7 MG/DL (0.8-1.5) L 09/30/16 07:43 Est GFR ( Amer) > 60 09/30/16 07:43 Est GFR (Non-Af Amer) > 60 09/30/16 07:43 POC Glucose (mg/dL) 228 mg/dL (65-110) H 09/30/16 11:07 Random Glucose 170 mg/dL (75-110) H 09/30/16 07:43 Lactic Acid 3.4 mmol/L (0.7-2.1) H 09/23/16 05:48 Calcium 9.3 mg/dl (8.6-10.4) 09/30/16 07:43 Phosphorus 3.6 mg/dL (2.5-4.5) 09/27/16 06:15 Magnesium 1.5 mg/dL (1.6-2.3) L 09/27/16 06:15 Total Bilirubin 0.6 mg/dL (0.2-1.3) 09/30/16 07:43 Direct Bilirubin 0.4 mg/dL (0.0-0.4) 09/30/16 07:43 AST 18 U/L (17-59) 09/30/16 07:43 ALT 32 U/L (21-72) 09/30/16 07:43 Alkaline Phosphatase 41 U/L (38-126) 09/30/16 07:43 NT-Pro-B Natriuret Pep 1580 pg/mL (0-900) H 09/25/16 07:57 Total Protein 6.4 g/dL (6.3-8.3) 09/30/16 07:43 Albumin 3.4 g/dL (3.5-5.0) L 09/30/16 07:43 Globulin 3.0 gm/dL (2.2-3.9) 09/30/16 07:43 Albumin/Globulin Ratio 1.1 (1.0-2.1) 09/30/16 07:43 Procalcitonin 3.91 NG/ML (0.19-0.49) H 09/25/16 09:32 Arterial Blood Potassium 1.8 mmol/L (3.6-5.2) L* 09/24/16 20:20 Venous Blood Potassium 4.3 mmol/L (3.6-5.2) 09/24/16 05:11 Urine Color Yellow (YELLOW) 09/23/16 01:08 Urine Clarity Turbid (Clear) 09/23/16 01:08 Urine pH 5.0 (5.0-8.0) 09/23/16 01:08 Ur Specific [place] 1.011 (1.003-1.030) 09/23/16 01:08 Urine Protein 2+ mg/dL (NEGATIVE) H 09/23/16 01:08 Urine Glucose (UA) Normal mg/dL (Normal) 09/23/16 01:08 Urine Ketones Negative mg/dL (NEGATIVE) 09/23/16 01:08 Urine Blood 2+ (NEGATIVE) H 09/23/16 01:08 Urine Nitrate Negative (NEGATIVE) 09/23/16 01:08 Urine Bilirubin Negative (NEGATIVE) 09/23/16 01:08 Urine Urobilinogen Normal mg/dL (0.2-1.0) 09/23/16 01:08 Ur Leukocyte Esterase 3+ Beck/uL (Negative) H 09/23/16 01:08 Urine WBC (Auto) 515 /hpf (0-5) H 09/23/16 01:08 Urine RBC (Auto) 67 /hpf (0-3) H 09/23/16 01:08 Urine WBC Clumps (Auto) Cancelled 09/23/16 00:35 Ur Squamous Epith Cells 1 /hpf (0-5) 09/23/16 01:08 Ur Transition Epith Cell Cancelled 09/23/16 00:35 Ur Renal Epithelial Cell Cancelled 09/23/16 00:35 Calcium Carbonate Cryst Cancelled 09/23/16 00:35 Calcium Phos Jannette (Auto) Cancelled 09/23/16 00:35 Calcium Oxalate Crystal Cancelled 09/23/16 00:35 Leucine Crystals Cancelled 09/23/16 00:35 Cystine Crystals Cancelled 09/23/16 00:35 Uric Acid Crystals Cancelled 09/23/16 00:35 Triple Phos Crystals Cancelled 09/23/16 00:35 Tyrosine Crystals Cancelled 09/23/16 00:35 Other Crystals Cancelled 09/23/16 00:35 Amorphous Sediment Cancelled 09/23/16 00:35 Urine Bacteria Occ (<OCC) H 09/23/16 01:08 Epithelial Casts (Auto) Cancelled 09/23/16 00:35 Fatty Casts Cancelled 09/23/16 00:35 Hyaline Casts Cancelled 09/23/16 00:35 Granular Casts (Auto) 11 /lpf (0-1) 09/23/16 01:08 Waxy Casts Cancelled 09/23/16 00:35 Broad Casts Cancelled 09/23/16 00:35 RBC Casts Cancelled 09/23/16 00:35 WBC Casts Cancelled 09/23/16 00:35 Other Casts Cancelled 09/23/16 00:35 Urine Trichomonas Cancelled 09/23/16 00:35 Ur Yeast w Hyphae Cancelled 09/23/16 00:35 Urine Yeast (Budding) Cancelled 09/23/16 00:35 Urine Sperm (Auto) Cancelled 09/23/16 00:35 Ur Oval Fat Bodies Auto Cancelled 09/23/16 00:35 C. difficile Ag & Toxin Negative (NEGATIVE) 09/27/16 18:30 - Hospital Course Hospital Course: ADMITTED FROM ER WITH SEPSIS SYNDROME . RECENTLY PT WAS ADMITTED WITH ACUTE URINARY RETENTION REQUIRING INDWELLING FOLEYS CATHER. URINE SHOWED STREP INFECTION. TREATED WITH PO AUGMENTIN. DID NOT F/U UROLOGY PT. HAD TEMP OF 104F WITH SYS. BP OF 80 MM OF HG. AND HYPONA. WITH SCANTY URINE OUT PUT . PT ADMITTED IN ICU PT WAS TREATED WITH IV AB URINE SHOWED E. COLI PT. IMPROVED AND WILL D/C ON PO AB DR. MENDIOLA TO F/U Discharge Exam - Head Exam Head Exam: NORMAL INSPECTION Discharge Plan - Follow Up Plan Condition: GUARDED Disposition: HOME/ ROUTINE Referrals: Solomon Ball MD [Primary Care Provider] -
[2016-09-30 13:36] LABS: RBC URINE < 1 /hpf (0-3); URINE BACTERIA RARE (<OCC); URINE BILIRUBIN NEGATIVE (NEGATIVE); URINE BLOOD NEGATIVE (NEGATIVE); URINE COLOR Straw (YELLOW); URINE GLUCOSE (UA) 3+ mg/dL (Normal); URINE KETONE TRACE mg/dL (NEGATIVE); URINE LEUKOCYTE ESTERASE NEG Leu/uL (Negative); URINE PROTEIN NEGATIVE (NEGATIVE); URINE UROBILINOGEN NORMAL mg/dL (0.2-1.0); WBC URINE 2 /hpf (0-5)
--- NOTE | 2016-09-30 16:33 | CP.PCM.PN ---
Subjective - Date & Time of Evaluation Date of Evaluation: 09/30/16 Time of Evaluation: 11:00 - Subjective Subjective: Alert, orientedx3, NAD Objective - Vital Signs/Intake and Output Vital Signs (last 24 hours): Temp Pulse Resp BP Pulse Ox 98.7 F 111 H 20 140/71 95 09/30/16 08:24 09/30/16 08:24 09/30/16 08:24 09/30/16 08:24 09/30/16 08:24 Intake and Output: 09/30/16 09/30/16 06:59 18:59 Intake Total 200 890 Output Total 500 Balance -300 890 - Medications Medications: Current Medications Famotidine (Pepcid) 20 mg PO BID [facility] Last Admin: 09/30/16 09:29 Dose: 20 mg Finasteride (Proscar) 5 mg PO DAILY [facility] Last Admin: 09/30/16 10:57 Dose: 5 mg Glipizide (Glucotrol) 5 mg PO DAILY [facility] Last Admin: 09/30/16 09:30 Dose: 5 mg Imipenem/Cilastatin Sodium 500 (mg/ Sodium Chloride) 100 mls @ 100 mls/hr IVPB Q8H [facility] Last Admin: 09/30/16 09:37 Dose: Not Given Insulin Glargine (Lantus) 10 unit SC [facility] Last Admin: 09/29/16 21:58 Dose: 10 units Insulin Human Regular (Novolin R) 0 unit SC ACHS [facility] PRN Reason: Protocol Last Admin: 09/30/16 11:46 Dose: 4 unit Metformin HCl (Glucophage) 1,000 mg PO BIDCC [facility] Last Admin: 09/30/16 07:51 Dose: 1,000 mg Methylprednisolone (Solu-Medrol) 20 mg IVP Q8 [facility] Last Admin: 09/30/16 13:45 Dose: 20 mg Potassium Phos/Sodium Phos (Neutra-Phos) 1 pkt PO Q8H [facility] Last Admin: 09/30/16 13:00 Dose: 1 pkt Promethazine HCl (Phenergan Syrup) 12.5 mg PO Q6 PRN PRN Reason: Cough Last Admin: 09/29/16 09:44 Dose: 12.5 mg Rosuvastatin Calcium (Crestor) 5 mg PO [facility] Last Admin: 09/29/16 21:59 Dose: 5 mg Tamsulosin HCl (Flomax) 0.4 mg PO DAILY [facility] Last Admin: 09/30/16 09:30 Dose: 0.4 mg - Labs Labs: 09/30/16 07:43 09/30/16 07:43 PT 15.6 SECONDS (9.7-12.2) H 09/22/16 23:14 INR 1.4 09/22/16 23:14 APTT 26 SECONDS (21-34) 09/22/16 23:14 Assessment and Plan - Assessment and Plan (Free Text) Assessment: Patient is seen and examined. Denies any abdominal pain, voiding well. Alert and oriented x3, NAD. D/W DR Gallardo , plan to discharge home on po cipro for 7 days and follow up with DR Ellison in the office for possible cysto.
[2016-09-30 16:38] VITALS: BP 159/81; PULSE 85; TEMP 98.5; O2SAT 97
[2016-09-30] MEDS ORDERED: Pneumococcal 23-Valent Vaccine IM ONE (17:14)
--- NOTE | 2016-10-11 11:54 | CARD ---
APPROVED REPORT EKG Measurement Heart [id number] <Conclusion> Normal sinus rhythm Normal ECG
== END 2016-09-30 17:35 | disposition home or self-care (01) | DRG 698 ==
LOC: C.ER 22:28 → SUPCPDRO 22:28 → C.9I 09-23 → C.3T 09-28 03:07
PROVIDERS: ADMIT Internal Medicine Cardiovascular Disease; ATTEND Internal Medicine Cardiovascular Disease
PROC: 0BH17EZ Insertion of Endotracheal Airway into Trachea, Via Natural or Artificial Opening (ICD-10-PCS; principal; 2016-09-25)
PROC: 5A1935Z Respiratory Ventilation, Less than 24 Consecutive Hours (ICD-10-PCS; 2016-09-25)
DX: T83.518A Infection and inflammatory reaction due to other urinary catheter, initial encounter (principal); J96.00 Acute respiratory failure, unspecified whether with hypoxia or hypercapnia; A41.51 Sepsis due to Escherichia coli [E. coli]; J44.1 Chronic obstructive pulmonary disease with (acute) exacerbation; E11.649 Type 2 diabetes mellitus with hypoglycemia without coma; D69.6 Thrombocytopenia, unspecified; E87.1 Hypo-osmolality and hyponatremia; R65.20 Severe sepsis without septic shock; N39.0 Urinary tract infection, site not specified; B95.1 Streptococcus, group B, as the cause of diseases classified elsewhere; E78.5 Hyperlipidemia, unspecified; M06.9 Rheumatoid arthritis, unspecified; J45.909 Unspecified asthma, uncomplicated; E78.00 Pure hypercholesterolemia, unspecified; N40.1 Benign prostatic hyperplasia with lower urinary tract symptoms; R33.8 Other retention of urine; Z79.4 Long term (current) use of insulin; E87.6 Hypokalemia; E83.42 Hypomagnesemia; E83.39 Other disorders of phosphorus metabolism; Y84.6 Urinary catheterization as the cause of abnormal reaction of the patient, or of later complication, without mention of misadventure at the time of the procedure